=== PATIENT | male | born 1940 | race Two or more races ===

== ENCOUNTER 2024-06-25 09:27 | Inpatient (IN) | payer OTHER, MEDICAID, MEDICARE, SELFPAY ==
[2024-06-25] VITALS (13 sets, daily range): BP systolic 116–190; BP diastolic 65–112; PULSE 69–123; RESP 15–30; TEMP 36.6–39.8; O2SAT 91–98; BMI 32.9
--- NOTE | 2024-06-25 10:13 | PD.EDRME ---
Rapid Medical Screening Exam RME Arrival date/time: 06/25/24 09:27 This is an 84-year-old male with complaints of right lower quadrant pain, flank pain and fever that started last night. Patient has a history of depression, hypothyroidism, memory issues, high blood pressure, prostate cancer, and hernia surgery in the past. Patient denies any respiratory symptoms. I have greeted and performed a focused initial assessment of this patient. Initial appropriate labs ordered at this time. A comprehensive ED assessment and evaluation of the patient and analysis of all test and completion of medical decision making process will be conducted by additional ED provider. Chief Complaint: Abdominal Pain Time Seen by Provider: 06/25/24 09:52 Vital signs: Vital Signs Temperature 99.9 F 06/25/24 09:50 Pulse Rate 112 H 06/25/24 09:50 Respiratory Rate 20 06/25/24 09:50 Blood Pressure 142/82 H 06/25/24 09:50 Pulse Oximetry (%) 93 L 06/25/24 09:50 Oxygen Delivery Method Room Air 06/25/24 09:50
--- NOTE | 2024-06-25 10:15 | XR_ITS ---
Examination: PA lateral chest 2 views Technique: Upright PA lateral chest 2 views Exam date and time: June 25, 2024 1030 hrs. Indications: Fever weakness today. Findings: Early right perihilar right basilar pneumonia Mild enlargement cardiac contour The osseous structures are demineralized Impression: Early right perihilar right basilar pneumonia
[2024-06-25 10:33] LABS: Lactate (Lactic Acid) 1.6 mMol/L (0.4-2.0)
[2024-06-25 10:46] LABS: Basophils % (Auto) 0 % (0-2.5); Eosinophils # (Auto) 0.1 Thou/mm3 (0.0-0.5); Eosinophils % (Auto) 1 % (0-10); Hematocrit 39.3 % (41.0-53.0); Hemoglobin 12.9 g/dL (13.5-16.0); Immature Granulocytes % (Auto) 0 % (0-0); Immature Granulocytes Auto 0.02 Thou/mm3 (0.00-0.00); Lymphocytes # (Auto) 0.7 Thou/mm3 (1.0-4.8); Lymphocytes % (Auto) 8 % (10-50); Mean Corpuscular HGB Conc 32.8 g/dl (31.0-37.0); Mean Corpuscular Hemoglobin 27.6 pg (25.0-35.0); Mean Corpuscular Volume 84 fL (80-100); Monocytes # (Auto) 0.6 Thou/mm3 (0.0-0.8); Monocytes % (Auto) 6 % (0-12); Neutrophils # (Auto) 8.3 Thou/mm3 (1.8-7.7); Neutrophils % (Auto) 85 % (37-80); Nucleated Red Blood Cell % 0 /100 WBC (0); Platelet Count 143 Thou/mm3 (140-440); RDW Standard Deviation 41.8 fL (35.1-43.9); Red Blood Count 4.67 Miln/mm3 (4.50-5.90); White Blood Count 9.7 Thou/mm3 (3.8-10.6)
--- NOTE | 2024-06-25 10:56 | PD.EDABDPN ---
ED Abdominal Pain RME/HPI General Chief Complaint: Abdominal Pain Stated complaint: Abdominal pain, back pain since this morning Time seen by provider: 06/25/24 09:52 Arrival date/time: 06/25/24 09:27 RME / HPI RME / HPI narrative: 06/25/24 09:27 This is an 84-year-old male with complaints of right lower quadrant pain, flank pain and fever that started last night. Patient has a history of depression, hypothyroidism, memory issues, high blood pressure, prostate cancer, and hernia surgery in the past. Patient denies any respiratory symptoms. I have greeted and performed a focused initial assessment of this patient. Initial appropriate labs ordered at this time. A comprehensive ED assessment and evaluation of the patient and analysis of all test and completion of medical decision making process will be conducted by additional ED provider. DR. RAMIREZ MAIN ED EVALUATION 84 year old male with history of hypertension, hyperlipidemia, hypothyroidism, BPH, prostate CA, s/p prostatectomy, gout, s/p left knee surgery 2010, chronic knee pain on [place] presents to the ED for complaint of abdominal pain beginning last night at ~ 9pm. States at 04:00 am the abdominal pain became so severe that woke him from sleep. States pain is located most to bilateral flanks, R>L that moves around to his back bilaterally and down to the tailbone. Described as aching in sensation that is rated as moderate-severe. Accompanied by fevers. Denies sore throat, cough, shortness of breath, vomiting, diarrhea, constipation, or urinary symptoms. No sick contacts. Related Data Home Medications ?Medication ?Instructions ?Recorded ?Confirmed hydrocodone 7.5 mg-acetaminophen 1 tab PO QID PRN Pain 05/03/18 04/17/24 325 mg tablet ibuprofen 600 mg tablet 600 mg PO TID PRN Pain 05/03/18 04/17/24 gabapentin 300 mg capsule 300 cap PO TID 11/14/21 04/17/24 losartan 100 mg tablet 100 tab PO DAILY 11/14/21 04/17/24 propranolol 10 mg tablet 10 tab PO BID 11/14/21 04/17/24 amitriptyline 25 mg tablet 25 mg PO DAILY 04/17/24 04/17/24 levothyroxine 50 mcg tablet 50 mcg PO DAILY 04/17/24 04/17/24 memantine 10 mg tablet 10 mg PO BID 04/17/24 04/17/24 pantoprazole 40 mg tablet,delayed 40 mg PO DAILY 04/17/24 04/17/24 release Allergies Allergy/AdvReac Type Severity Reaction Status Date / Time No Known Allergies Allergy Verified 04/17/24 12:50 Review of Systems Review of Systems Narrative Review of Systems: GEN: +fever, no chills, no weight loss EYES: No discharge, no visual changes, no pain HEENT: No ear pain, no congestion, no sore throat PULM: No shortness of breath, no cough, no congestion CV: No chest pain, no dyspnea on exertion, no palpitations GI: No nausea, no vomiting, no diarrhea, +pain, no constipation : No frequency, no urgency and no dysuria MUSC/SKEL No joint pain, + back pain SKIN: No rash PSYCH: No hallucinations, no depression HEME/LYMPH: No easy bleeding or bruising tendencies NEURO: No weakness, no headache Past Medical History Past Medical History CARDIAC: Positive Cardiac Disorders (BUNDLE BRANCH BLOCK), Hypercholesterolemia and Hypertension GASTROINTESTINAL: Positive Gastrointestinal Disorders (HERNIA, DYSPHAGIA) GENITOURINARY: Positive Genitourinary Disorders, Prostate Cancer and Benign Prostatic Hyperplasia MUSCULOSKELETAL: Positive Musculoskeletal Disorders (RESTLESS LEGS) and Gout ENDOCRINE: Positive Endocrine Disorders and Hypothyroidism OTHER HISTORY: Positive Prostate Cancer Surgical History SURGICAL: Positive Eye Surgery Social History SMOKING STATUS: Former smoker ED Exam Narrative Physical exam: GENERAL APPEARANCE: Well hydrated, well nourished. VITALS: Febrile, 13.7F rectally. All vitals were reviewed and the pulse ox is 93% on room air which is normal according to my interpretation. HEENT: Normocephalic, atramatic, EOMI, EACs are patent. There is no bulge or retraction. Throat without erythema or exudate. Moist oromucosa. No jaundice NECK: Supple, no JVD or bruits. CARDIOVASCULAR: Heart regular without S3-S4 or murmur. No rubs or gallops. LUNGS/CHEST: Clear to auscultation bilaterally. No rales, rhonchi, or wheezing. Normal inspection. ABDOMEN: Soft, mild right flank tenderness otherwise abdomen nontender, with normal bowel sounds. No pulsatile masses. No rebound, rigidity, or guarding. No incarcerated hernia. EXTREMITIES: Normal inspection and palpation. No edema, clubbing, or cyanosis. Intact CSM SKIN: Warm and dry without rashes. Normal inspection. MUSCULOSKELETAL: Normal inspection. No gross deformity, full ROM all extremities NEURO: Alert and oriented x3. Cranial nerves II through XII grossly intact. There are no other motor or sensory deficits noted. PSYCHIATRIC: Normal mood and affect. No psychosis. Course Quality Measures Current suspected stage: sepsis Possible source: pulmonary Blood cultures ordered: completed in ED Antibiotic ordered: Yes Pertinent labs: 06/25/24 10:25 Lactic Acid 1.6 mMol/L (0.4-2.0) Procalcitonin 1.23 H ng/ml (0.0-0.49) sepsis Orders Category Date Time Status Admit to Inpatient Status Routine Admission 06/25/24 16:28 Active Patient Condition Routine Admission 06/25/24 16:29 Ordered Bedside COVID-19 Antigen Test NOW Care 06/25/24 10:49 Active Bedside Influenza A&B Antigen Test NOW Care 06/25/24 10:[address] Screening NOW Care 06/25/24 11:10 Active Flu & Pneumonia Vaccine Screen ONCE Care 06/25/24 16:29 Active Notify provider NEEDED Care 06/25/24 16:29 Active Obtain weight daily Care 06/25/24 16:[address] abdomen pelvis w con Stat Exams 06/25/24 11:10 Completed XR chest 2V Stat Exams 06/25/24 10:15 Completed Blood Culture (Lab) Stat Lab 06/25/24 10:25 Received CBC AM DRAW Lab 06/26/24 05:00 Ordered CBC AM DRAW Lab 06/27/24 05:00 Ordered CBC AM DRAW Lab 06/28/24 05:00 Ordered CBC AM DRAW Lab 06/29/24 05:00 Ordered CBC AM DRAW Lab 06/30/24 05:00 Ordered CBC Stat Lab 06/25/24 10:25 Completed Comprehensive Metabolic Panel AM DRAW Lab 06/26/24 05:00 Ordered Comprehensive Metabolic Panel AM DRAW Lab 06/27/24 05:00 Ordered Comprehensive Metabolic Panel AM DRAW Lab 06/28/24 05:00 Ordered Comprehensive Metabolic Panel AM DRAW Lab 06/29/24 05:00 Ordered Comprehensive Metabolic Panel AM DRAW Lab 06/30/24 05:00 Ordered Comprehensive Metabolic Panel Stat Lab 06/25/24 10:25 Completed Influenza A & B Rapid Panel Stat Lab 06/25/24 15:23 Completed Lactate (Lactic Acid) Stat Lab 06/25/24 10:25 Completed Lipase Stat Lab 06/25/24 10:25 Completed Lipid Panel AM DRAW Lab 06/26/24 05:00 Ordered Magnesium AM DRAW Lab 06/26/24 05:00 Ordered Magnesium AM DRAW Lab 06/27/24 05:00 Ordered Magnesium AM DRAW Lab 06/28/24 05:00 Ordered Magnesium AM DRAW Lab 06/29/24 05:00 Ordered Magnesium AM DRAW Lab 06/30/24 05:00 Ordered Phosphorous AM DRAW Lab 06/26/24 05:00 Ordered Phosphorous AM DRAW Lab 06/27/24 05:00 Ordered Phosphorous AM DRAW Lab 06/28/24 05:00 Ordered Phosphorous AM DRAW Lab 06/29/24 05:00 Ordered Phosphorous AM DRAW Lab 06/30/24 05:00 Ordered Procalcitonin Stat Lab 06/25/24 10:25 Completed Thyroid Stimulating Hormone AM DRAW Lab 06/26/24 05:00 Ordered Urinalysis, C/S if Indicated Stat Lab 06/25/24 14:00 Completed Urine Culture Routine Lab 06/25/24 16:31 Ordered Acetaminophen Ivpb [Ofirmev Inj] Med 06/25/24 10:50 Discontinued 1,000 mg in 100 ml IV Q6H Acetaminophen Tab [Tylenol Tab] Med 06/25/24 16:29 Active 650 mg PO Q6H PRN Acetaminophen Tab [Tylenol Tab] Med 06/25/24 16:29 Active 650 mg PO Q6H PRN Docusate Sod [Colace] Med 06/25/24 16:30 Active 100 mg PO QDAY Heparin Inj Med 06/25/24 16:45 Active 5,000 unit SC Q8HR Morphine Inj Med 06/25/24 11:47 Discontinued 4 mg IVP X1 ONE Ondansetron Inj [Zofran Inj] Med 06/25/24 16:29 Active 4 mg IV Q6H PRN Ondansetron Inj [Zofran Inj] Med 06/25/24 11:48 Discontinued 4 mg IV X1 ONE Piper/Tazo 3.375 gm [Zosyn] Med 06/25/24 16:35 Ordered 3.375 gm in 50 ml IV Q6HR Piper/Tazo 3.375 gm [Zosyn] Med 06/25/24 10:51 Discontinued 3.375 gm in 50 ml IV X1 Sodium Chloride 0.9% 1000 ml [Ns] 1,000 ml Med 06/25/24 16:32 Active IV 999 mls/hr Sodium Chloride 0.9% 1000 ml [Ns] 2,000 ml Med 06/25/24 10:50 Discontinued IV 500 mls/hr Code Status Routine Oth 06/25/24 16:29 Ordered Vital Signs Vital signs: Vital Signs Temperature 99.9 F 06/25/24 09:50 Pulse Rate 112 H 06/25/24 09:50 Respiratory Rate 20 06/25/24 09:50 Blood Pressure 142/82 H 06/25/24 09:50 Pulse Oximetry (%) 93 L 06/25/24 09:50 Oxygen Delivery Method Room Air 06/25/24 09:50 Abdominal Pain MDM MDM Narrative MDM Narrative:: IAlexsandra, johnny scribing for and in the presence of Dr. Ramirez. The patient looks and appeared uncomfortable with the pain of the right flank. Therefore CT was ordered to rule out kidney stone. CBC unremarkable. BUN at 35 creatinine 1.6 and procalcitonin 1.23 lactic acid is negative urine analysis showing dehydration. COVID-19 negative. Influenza is pending. 2 view chest x-ray interpreted by me: Evidence of right lower lobe infiltrate. Heart normal. Mediastinum normal. Normal bones. CT abdomen and pelvic reviewed by and interpreted by me: Atrophic right kidney with cyst. Liver is unremarkable. Pancreas normal. Left kidney is normal however there is some perinephric stranding. Possibility of pyelonephritis. No free air. No bowel obstruction. No free fluid. No pericecal stranding In the emergency department the patient was declared septic alert when his temperature spiked to 103.7. Treatment plan was accordingly including Tylenol, IV fluid, IV antibiotic. The latest vital signs that was done at 1451 indicates normal blood pressure 116/65. Pulse of 69. Respiration of 18. Temperature 98.1. O2 saturation at 98% on 2 L. The patient still having pain in the right flank. 3:20 PM, I spoke to and discussed with Dr. colbert, resident of Dr. Mascorro hospitalist on-call. He will assess the patient for admission. Critical care time is approximately 35 minutes excluding any procedure. The high probability of sudden, clinically significant deterioration in the patient?s condition required the highest level of my preparedness to intervene urgently. The services I provided to this patient were to treat and/or prevent clinically significant deterioration. Services included the following: chart data review, reviewing nursing notes and/or old charts, documentation time, office 365 consultant collaboration regarding findings and treatment options, medication orders and management, direct patient care, vital sign assessments and ordering, interpreting and reviewing diagnostic studies and lab tests. Aggregate critical care time includes only time during which I was engaged in work directly related to the patient?s care, as described above, whether at bedside or elsewhere in the Emergency Department. It did not include time spent performing other reported procedures or the services of residents, students, nurses or physician assistants. Patient data External records reviewed:: [facility] previous records (I reviewed H&P on 04/27/2024 ) Clinical information provided by:: patient and family (Daughter- adds to hpi ) Social determinants that could affect healthcare access:: none Patient has the following chronic illnesses:: hypertension, hyperlipidemia, hypothyroidism, BPH, prostate CA, s/p prostatectomy How is presenting disease/condition affected by chronic disease/condition?: exacerbated by Evaluation data The following diagnostics were reviewed and interpreted by me:: lab results and radiology exam(s) Lab and/or radiology exams considered but not ordered:: None Interpretation Summary: Ordering Physician: Alvin Ramirez MD Date of Service: 06/25/24 Procedure(s): CT abdomen pelvis w con Accession Number(s): [id number] cc: Orville Banegas MD; Ajay Dubose MD; Alvin Ramirez MD~ Examination: CT abdomen with intravenous contrast CT pelvis with intravenous contrast 2-D coronal reconstructions 2-D sagittal reconstructions Date and time of exam:June 25, 2024 at 12:46 PM Comparison March 11, 2018 Indications: Bilateral flank pain abdominal pain and fever today. CTDI: vol (mGy) 9.23 DLP: (mGycm) 601 Technique: Multiple axial sections of the abdomen and pelvis have been obtained. 64 slice high-resolution scanner used. 3 mm axial sections have been obtained, post intravenous injection 30 cc [id number] 2-D sagittal, coronal reconstructions obtained. Low dose protocols were performed. One or more of the following dose reduction techniques were used; automated exposure control, adjustment of the mA and/or KV according to patient size, use of iterative reconstruction technique. Findings: No focal liver or splenic lesions No gallstones No pancreatic or adrenal mass 3.5 cm medial right renal cyst Atrophic right kidney Upper pole 3.4 cm left renal cyst Perinephric stranding on the left No aortic aneurysm Normal appendix No bowel obstruction No bladder mass or bladder calculi Probable TURP defect Bilateral fat-containing inguinal hernias Advanced degenerative disc disease L5-S1 Impression: Atrophic right kidney Left perinephric stranding, consider left urinary tract infection No hydronephrosis or ureteral calculi Dictated By: Ajay Dubose MD Signed By: <Electronically signed by Ajay Dubose MD in OV> 06/25/24 1423 Ordering Physician: Radha Palacios NP Date of Service: 06/25/24 Procedure(s): XR chest 2V Accession Number(s): [id number] cc: Orville Banegas MD; Ajay Dubose MD; Radha Palacios NP~ Examination: PA lateral chest 2 views Technique: Upright PA lateral chest 2 views Exam date and time: June 25, 2024 1030 hrs. Indications: Fever weakness today. Findings: Early right perihilar right basilar pneumonia Mild enlargement cardiac contour The osseous structures are demineralized Impression: Early right perihilar right basilar pneumonia Dictated By: Ajay Dubose MD Signed By: <Electronically signed by Ajay Dubose MD in [place]> 06/25/24 1229 Medications / Prescriptions Medications or Prescriptions considered but not ordered:: None Medication administrations:: Medication Administration History Acetaminophen (Acetaminophen 325 Mg Tablet) 650 mg PO Q6H PRN PRN Reason: Fever >100.5 Stop: 07/25/24 16:28 Acetaminophen (Acetaminophen 325 Mg Tablet) 650 mg PO Q6H PRN PRN Reason: PAIN SCALE 1-3 (mild Stop: 07/25/24 16:28 Docusate Sodium (Docusate Sod 100 Mg Capsule) 100 mg PO QDAY BUTCH; Protocol Stop: 07/25/24 16:29 Heparin Sodium (Porcine) (Heparin Sod Inj 5000 Unit/Ml Vial) 5,000 unit SC Q8HR [facility] Stop: 07/09/24 16:44 Sodium Chloride (Ns) 1,000 mls @ 999 mls/hr IV .Q1H1M ONE Stop: 06/25/24 17:32 Piperacillin/Tazobactam/Dextrose (Zosyn) 3.375 gm in 50 mls @ 100 mls/hr IV Q6HR [facility] Stop: 07/02/24 16:34 Ondansetron HCl (Ondansetron Inj 2 Mg/Ml Inj 2 Ml) 4 mg IV Q6H PRN; Protocol PRN Reason: NAUSEA OR VOMITING Stop: 07/25/24 16:28 Discontinued Medications Acetaminophen (Ofirmev Inj) 1,000 mg in 100 mls @ 250 mls/hr IV Q6H [facility] Stop: 06/26/24 05:13 Last Infusion: 06/25/24 12:18 Dose: Infused Documented By: Admin: 06/25/24 11:54 Dose: 250 mls/hr Documented By: EF Sodium Chloride (Ns) 2,000 mls @ 500 mls/hr IV .Q4H ONE Stop: 06/25/24 14:49 Last Admin: 06/25/24 11:24 Dose: 500 mls/hr Documented By: EF Piperacillin/Tazobactam/Dextrose (Zosyn) 3.375 gm in 50 mls @ 100 mls/hr IV X1 ONE Stop: 06/25/24 11:20 Last Infusion: 06/25/24 11:55 Dose: Infused Documented By: Admin: 06/25/24 11:25 Dose: 100 mls/hr Documented By: EF Morphine Sulfate (Morphine Sulf Inj 10 Mg/Ml Vial) 4 mg IVP X1 ONE Stop: 06/25/24 11:48 Last Admin: 06/25/24 11:54 Dose: 4 mg Documented By: EF Ondansetron HCl (Ondansetron Inj 2 Mg/Ml Inj 2 Ml) 4 mg IV X1 ONE; Protocol Stop: 06/25/24 11:49 Last Admin: 06/25/24 11:54 Dose: 4 mg Documented By: EF See above Consultations Consultation(s) initiated? (list below): Yes Consultation #1 (Physician, Specialty, Details): I spoke with hospitalist Dr. Mascorro regarding admission. Discussed patients PMHx, HPI, ED course, exam findings, labs, and radiology results as noted above. Diagnosis Differential diagnosis abdominal pain: abdominal pain, calculus of kidney, diverticulitis and small bowel obstruction Most likely diagnosis given after review of the tests above:: Sepsis Dehydration Admission Indicated Admission indicated?: indicated Admission Request Was there a request for admission?: Yes Admission Attestation Admission request attestation: Discussed case with [] from Hospitalist service regarding admission. Discussed patients ED course, exam findings, labs, and radiology results. The Hospitalist [agrees,declines] to accept the patient for admission. Disposition Plan Disposition Plan: Admit Critical Care Time Critical Care Time Critical Care Time: Yes Total Critical Care Time (min.): 35 Attestation: The high probability of sudden, clinically significant deterioration in the patient's condition required the highest level of my preparedness to intervene urgently. The services I provided to this patient were to treat and/or prevent clinically significant deterioration. Services included the following: chart data review, reviewing nursing notes and/or old charts, documentation time, office 365 consultant collaboration regarding findings and treatment options, medication orders and management, direct patient care, vital sign assessments and ordering, interpreting and reviewing diagnostic studies and lab tests. Aggregate critical care time includes only time during which I was engaged in work directly related to the patient's care, as described above, whether at bedside or elsewhere in the Emergency Department. It did not include time spent performing other reported procedures or the services of residents, students, nurses or physician assistants. Discharge Plan Plan Patient Disposition: Admit Acute Care w/in Hospital Disposition Comment: Stable for admit Prescriptions/Referrals Prescriptions/Med Rec: No Action ibuprofen 600 mg Tablet 600 mg PO TID PRN (Reason: Pain) hydrocodone-acetaminophen 7.5-325 mg Tablet 1 tab PO QID PRN (Reason: Pain) Hold Instructions: Resume on 04/18/24. propranolol 10 mg tablet 10 tab PO BID gabapentin 300 mg capsule 300 cap PO TID losartan 100 mg tablet 100 tab PO DAILY levothyroxine 50 mcg tablet 50 mcg PO DAILY Patient Comments: take 1 tablet by mouth once daily pantoprazole 40 mg tablet,delayed release (DR/EC) 40 mg PO DAILY memantine 10 mg tablet 10 mg PO BID amitriptyline 25 mg tablet 25 mg PO DAILY Referrals: Orville Banegas MD [Primary Care Provider] - In 1 week Problem List Clinical Impression: Sepsis, Pneumonia, Dehydration Patient/Caregiver Discharge Instructions Print Language: French Stand Alone Forms: Roberta Award Info., Patient Portal Info Letter
[2024-06-25 11:07] LABS: Alanine Aminotransferase 10 U/L (10-49); Albumin, Serum 4.7 gm/dL (3.4-4.8); Albumin/Globulin Ratio 1.7 (1.2-2.2); Alkaline Phosphatase 102 U/L (46-116); Anion Gap 8 (7-16); Aspartate Amino Transferase < 10 U/L (0-34); BUN/Creatinine Ratio 22 Ratio (12-20); Bilirubin,Total 1.4 mg/dL (0.3-1.2); Blood Urea Nitrogen 35 mg/dL (9-23); Calcium 9.5 mg/dL (8.3-10.6); Calcium (Corrected) 9.5 mg/dL (8.5-10.1); Carbon Dioxide 25.3 mMol/L (20.0-31.0); Chloride 105 mMol/L (98-107); Creatinine (Component) 1.6 mg/dL (0.6-1.3); Estimated Creatinine Clearance 38.9 mL/min (>60); Globulin 2.8 gm/dL (2.3-3.5); Glucose 112 mg/dL (74-106); Lipase 31 U/L (12-53); Osmolality,Calculated 284 (275-295); Potassium 4.4 mMol/L (3.4-5.1); Procalcitonin 1.23 ng/ml (0.0-0.49); Sodium 138 mMol/L (136-145); Total Protein 7.5 gm/dL (5.7-8.2); eGFR 42 See Note
--- NOTE | 2024-06-25 11:10 | XR_ITS ---
Examination: CT abdomen with intravenous contrast CT pelvis with intravenous contrast 2-D coronal reconstructions 2-D sagittal reconstructions Date and time of exam:June 25, 2024 at 12:46 PM Comparison March 11, 2018 Indications: Bilateral flank pain abdominal pain and fever today. CTDI: vol (mGy) 9.23 DLP: (mGycm) 601 Technique: Multiple axial sections of the abdomen and pelvis have been obtained. 64 slice high-resolution scanner used. 3 mm axial sections have been obtained, post intravenous injection 30 cc [id number]-300 2-D sagittal, coronal reconstructions obtained. Low dose protocols were performed. One or more of the following dose reduction techniques were used; automated exposure control, adjustment of the mA and/or KV according to patient size, use of iterative reconstruction technique. Findings: No focal liver or splenic lesions No gallstones No pancreatic or adrenal mass 3.5 cm medial right renal cyst Atrophic right kidney Upper pole 3.4 cm left renal cyst Perinephric stranding on the left No aortic aneurysm Normal appendix No bowel obstruction No bladder mass or bladder calculi Probable TURP defect Bilateral fat-containing inguinal hernias Advanced degenerative disc disease L5-S1 Impression: Atrophic right kidney Left perinephric stranding, consider left urinary tract infection No hydronephrosis or ureteral calculi
[2024-06-25] MEDS: SODIUM CHLORIDE 0.9% 1000 ML 2,000 ML 500 ML IV (11:24)
[2024-06-25] MEDS: PIPER/TAZO 3.375 GM 3.375 GM/50 ML BAG IV ×2 (11:25→17:20)
[2024-06-25] MEDS: ONDANSETRON INJ 2 MG/ML INJ 2 ML 4 MG IV (11:54)
[2024-06-25] MEDS: ACETAMINOPHEN IVPB 1,000 MG/100 ML VIAL 250 MG IV (11:54)
[2024-06-25] MEDS: MORPHINE SULF INJ 10 MG/ML VIAL 4 MG IVP ×2 (11:54→21:22)
--- NOTE | 2024-06-25 12:02 | PC.NURSE ---
patient brought in by daughter for abdominal pain that started this morning around 4am pain 03/14
[2024-06-25 14:34] LABS: Collection Type, Urine Voided
[2024-06-25 14:45] LABS: Bilirubin,Urine Negative (Negative); Blood,Urine Negative (Negative); Clarity,Urine Clear (Clear/Hazy); Color,Urine Lt-Yellow (Lt Yel-Yel); Culture Indicated,Urine Not Indicated; Glucose, Urine Negative (Negative); Ketones,Urine Negative (Negative); Nitrite,Urine Negative (Negative); PH,Urine 5.5 (5.0-7.0); Protein,Urine Negative (Neg - Trace); RBC,Urine 3 /hpf (0-3); Specific Gravity,Urine 1.038 (1.001-1.035); Squamous Epithelial Cell,Urine 1 /hpf (0-5); Urobilinogen,Urine Negative mg/dL (0.0-1.0); WBC,Urine < 1 /hpf (0-5)
[2024-06-25 14:49] LABS: Leukocyte Esterase,Urine Trace (Negative)
[2024-06-25 16:07] LABS: Influenza A Ag Negative; Influenza B Ag Negative
--- NOTE | 2024-06-25 16:44 | ESHP_ITS ---
Documentation for date of: 06/25/24 [facility] History of Present Illness Chief complaint: Abdominal pain History of present illness: 84-year-old male with past medical history of hypertension, hyperlipidemia, hypothyroidism, BPH, prostate cancer s/p prostatectomy, gout, chronic knee pain on [place] presented to the ED due to abdominal pain. Patient suddenly woke up at 4 AM today 06/25/2024 with diffuse abdominal pain radiating to the bilateral flanks associated with some nausea. Patient states no relief with changing position, however in the ED was given morphine and that relieved the pain. Denies fevers, chills, shortness of breath, chest pain, urinary changes. Patient will be admitted for sepsis secondary to left pyelonephritis. ED course: Vitals on arrival significant for hypertension 142/82, tachycardia 112 bpm, saturating 93% on room air. CBC unremarkable, CHEM panel showed mild ANTONINA, T. bili 1.4, procalcitonin 1.23, chest x-ray showed right basilar pneumonia, CT abdomen pelvis showedAtrophic right kidney, Left perinephric stranding, consider left urinary tract infection,No hydronephrosis or ureteral calculi PMHx: Hypertension, hyperlipidemia, prostate cancer, gout, BPH, hypothyroidism, chronic knee pain on [place] SX Hx: Prostatectomy, bilateral knee surgeries Social Hx: Denies alcohol use, denies illicit drug use, denies smoking FHx: Unknown Review of Systems Review of Systems Narrative Review of Systems: Narrative ROS GENERAL: Denies fevers/chills or diaphoresis. HEENT: Denies headache or visual/hearing changes. Denies nasal discharge. NEURO: Denies unusual weakness or difficulty speaking. CARDIO: Denies chest pain or palpitations. PULM: Denies SOB, coughing, or wheezing. GI: + abdominal pain, N/V/C/D/reflux/gas, bright red blood per rectum or melena. Reports having BMs. URO: Denies burning/itching/pain/urinary changes. MSK/EXT/SKIN: Denies joint/skeletal/muscle pain, issues/changes in upper or lower extremities, itchiness, or superficial pain. PSYCH: Cooperative, pleasant mood & affect. The rest of the review of systems is otherwise negative. Exam Vital Signs Temp Pulse Resp BP Pulse Ox O2 Del Method O2 Flow Rate 97.9 F 87 18 179/86 H 97 Room Air 2 06/25/24 16:00 06/25/24 16:00 06/25/24 16:00 06/25/24 16:00 06/25/24 16:00 06/25/24 16:00 06/25/24 12:07 Narrative Exam Physical Exam GENERAL: NAD, AAOx3 HEENT: Moist mucosa. Eyes open, symmetrical, & clear CARDIO: Heart RRR, no obvious murmurs PULM: No noted coughing/dyspnea CTA B/L, no R/W/R GI: Abdomen soft, nondistended, pain on palpation more prominent in the bilateral lower quadrants, positive left CVA, BSx4 SKIN/MSK/EXT: No wounds/rashes/edema/amputations, no pain on palpation. Pedal pulses present B/L NEURO: AAOx3, no focal neuro deficits, able to move all 4 extremities Results: Labs 06/25/24 10:25 06/25/24 10:25 Labs: Short CBC 06/25/24 Range/Units 10:25 WBC 9.7 (3.8-10.6) Thou/mm3 Hgb 12.9 L (13.5-16.0) g/dL Hct 39.3 L (41.0-53.0) % Plt Count 143 (140-440) Thou/mm3 BMP 06/25/24 10:25 Sodium 138 Potassium 4.4 Chloride 105 Carbon Dioxide 25.3 BUN 35 H Creatinine 1.6 H Glucose 112 H Calcium 9.5 Liver Function 06/25/24 Range/Units 10:25 Total Bilirubin 1.4 H (0.3-1.2) mg/dL AST < 10 (0-34) U/L ALT 10 (10-49) U/L Alkaline Phosphatase 102 (46-116) U/L Albumin 4.7 (3.4-4.8) gm/dL Urine 06/25/24 Range/Units 14:00 Urine Color Lt-Yellow (Lt Yel-Yel) Urine Clarity Clear (Clear/Hazy) Urine pH 5.5 (5.0-7.0) Ur Specific [place] 1.038 H (1.001-1.035) Urine Protein Negative (Neg - Trace) Urine Glucose (UA) Negative (Negative) Quality Measures Quality Measures sepsis Current suspected stage: sepsis Possible source: pulmonary Blood cultures ordered: completed in ED Antibiotic ordered: Yes Advance care planning discussed with:: patient and child Medications Home Medications and Allergies Home Medications ?Medication ?Instructions ?Recorded ?Confirmed ?Type hydrocodone 7.5 mg-acetaminophen 1 tab PO BID PRN Pain 05/03/18 06/25/24 History 325 mg tablet ibuprofen 600 mg tablet 600 mg PO TID PRN Pain 05/03/18 06/25/24 History gabapentin 300 mg capsule 300 cap PO TID 11/14/21 06/25/24 History losartan 100 mg tablet 100 tab PO DAILY 11/14/21 06/25/24 History propranolol 10 mg tablet 10 tab PO DAILY 11/14/21 06/25/24 History amitriptyline 25 mg tablet 25 mg PO HS 04/17/24 06/25/24 History levothyroxine 50 mcg tablet 50 mcg PO DAILY 04/17/24 04/17/24 History memantine 10 mg tablet 10 mg PO BID 04/17/24 06/25/24 History pantoprazole 40 mg tablet,delayed 40 mg PO DAILY 04/17/24 04/17/24 History release Allergies Allergy/AdvReac Type Severity Reaction Status Date / Time No Known Allergies Allergy Verified 06/25/24 19:53 Visit Medications Acetaminophen (Acetaminophen 325 Mg Tablet) 650 mg PO Q6H PRN PRN Reason: Fever >100.5 Stop: 07/25/24 16:28 Acetaminophen (Acetaminophen 325 Mg Tablet) 650 mg PO Q6H PRN PRN Reason: PAIN SCALE 1-3 (mild Stop: 07/25/24 16:28 Docusate Sodium (Docusate Sod 100 Mg Capsule) [facility]; Protocol Stop: 07/25/24 16:29 Heparin Sodium (Porcine) (Heparin Sod Inj 5000 Unit/Ml Vial) 5,000 unit SC Q8HR BUTCH Stop: 07/09/24 16:44 Sodium Chloride (Ns) 1,000 mls @ 999 mls/hr IV .Q1H1M ONE Stop: 06/25/24 17:32 Piperacillin/Tazobactam/Dextrose (Zosyn) 3.375 gm in 50 mls @ 12.5 mls/hr IV Q6HR BUTCH; Protocol Stop: 07/02/24 17:59 Morphine Sulfate (Morphine Sulf Inj 10 Mg/Ml Vial) 2 mg IVP Q4H PRN PRN Reason: PAIN SCALE 7-10 (Severe Stop: 06/30/24 16:40 Ondansetron HCl (Ondansetron Inj 2 Mg/Ml Inj 2 Ml) 4 mg IV Q6H PRN; Protocol PRN Reason: NAUSEA OR VOMITING Stop: 07/25/24 16:28 Discontinued Medications Acetaminophen (Ofirmev Inj) 1,000 mg in 100 mls @ 250 mls/hr IV Q6H BUTCH Stop: 06/26/24 05:13 Last Infusion: 06/25/24 12:18 Dose: Infused Sodium Chloride (Ns) 2,000 mls @ 500 mls/hr IV .Q4H ONE Stop: 06/25/24 14:49 Last Admin: 06/25/24 11:24 Dose: 500 mls/hr Piperacillin/Tazobactam/Dextrose (Zosyn) 3.375 gm in 50 mls @ 100 mls/hr IV X1 ONE Stop: 06/25/24 11:20 Last Infusion: 06/25/24 11:55 Dose: Infused Piperacillin/Tazobactam/Dextrose (Zosyn) 3.375 gm in 50 mls @ 12.5 mls/hr IV Q8HR BUTCH; Protocol Stop: 07/02/24 16:44 Morphine Sulfate (Morphine Sulf Inj 10 Mg/Ml Vial) 4 mg IVP X1 ONE Stop: 06/25/24 11:48 Last Admin: 06/25/24 11:54 Dose: 4 mg Morphine Sulfate (Morphine Sulf Inj 10 Mg/Ml Vial) 2 mg IVP Q2H PRN PRN Reason: PAIN SCALE 7-10 (Severe Stop: 06/30/24 16:40 Ondansetron HCl (Ondansetron Inj 2 Mg/Ml Inj 2 Ml) 4 mg IV X1 ONE; Protocol Stop: 06/25/24 11:49 Last Admin: 06/25/24 11:54 Dose: 4 mg Assessment & Plan Plan 84-year-old male with past medical history of hypertension, hyperlipidemia, hypothyroidism, BPH, prostate cancer s/p prostatectomy, gout, chronic knee pain on [place] presented to the ED due to abdominal pain. Admitted for sepsis secondary to left pyelonephritis. #Sepsis secondary to #Pyelonephritis #Right-sided pneumonia Patient presented today with lower abdominal pain radiating to the flanks On physical exam with left-sided CVA tenderness positive On admission had SIRS 2 out of 4, tachycardia, febrile with source pyelonephritis and endorgan damage acute kidney injury and hyperbilirubinemia Abdomen/pelvis CT: Left perinephric fat stranding and CXR: Early right base pneumonia Pro-Hilario 1.23, In the ED received 2 L of IV fluids -On IV Zosyn, will adjust based on sensitivity and cultures -Ordered 1 L of normal saline for 30 cc/kg for sepsis -Follow-up COVID, influenza -Follow-up lactate -Follow-up blood cultures -Follow-up urine culture #ANTONINA Baseline creatinine seems to be 0.9-1.1 Current creatinine 1.6 In the ED received 2 L of IVF's -1 L NS ordered -Renally dose medications -Avoid nephrotoxic meds -Monitor CMP #Hypertensive urgency Likely in the setting of pain Will hold resuming losartan in view of ANTONINA -IV hydralazine as needed #Elevated T. bili Likely in the setting of sepsis -Will monitor at this time #Chronic pain Patient had history of bilateral knee surgeries takes chronic [place] -Resume [place] 7.25 325 twice daily as needed #BPH #Prostate cancer status post prostatectomy Resume Flomax as taken at home #Hypothyroidism Follow-up TSH, free T4 -Resume levothyroxine 50 mcg p.o. daily #GERD -Resumed home pantoprazole Case discussed with my attending Dr. Subha Carvalho MD PGY-1 Disposition: Telemetry Fluids: NS Feeding: Cardiac Thrombo prophylaxis: Heparin Gastric Ulcer prophylaxis: Pantoprazole CODE STATUS: Full code Attending Provider Attestation/Addendum I have examined the patient, reviewed labs and imaging findings, discussed the case with the resident(s), and reviewed entered orders. I agree with the plan of care as outlined in this note, with these additional summaries/recommendations: Patient is a 84-year-old male with a medical history of chronic back pain, BPH, prostate cancer, status post TURP, neuropathy, hypothyroidism, primary hypertension, and hyperlipidemia who presents to [facility] emergency department on 06/25/2024 with chief complaints of lower abdominal pain, left flank pain, and fevers that started last night. Patient was diagnosed with sepsis and hospitalist team consulted for continuation of care. #Sepsis #Pyelonephritis SIRS: 2 out of 4 SIRS criteria met (body temp >38C, HR >90) qSOFA: 0 points indicating low risk of mortality from sepsis Presented with flank pain, fever/chills, and possible urinary symptoms Labs notable for WBC 9.7 (baseline in 5 range), Pro-Hilario 1.23, and endorgan damage with ANTONINA and hyperbilirubinemia Abdomen/pelvis CT: Left perinephric fat stranding and CXR: Early right base pneumonia Meets criteria for sepsis. Most likely source is pyelonephritis versus less likely pneumonia versus less likely viral infection Order daily CBC, blood cultures, urine culture, COVID, and influenza Antibiotics: Start IV Zosyn (06/25/24) and de-escalate when able Fluids: Received 1.5 L fluids in ED. Will give additional 1.5 L to meet sepsis 30 cc/kg protocol No need for pressors or source control at this time Tylenol as needed for fever #Chronic Pain: Continue home [place] 7.5?3 25 twice daily as needed # GERD: Continue home pantoprazole # Hypothyroidism: Order free T4 and TSH. Continue home levothyroxine 50 mcg p.o. daily # BPH/prostate cancer: Will resume home Flomax when able. Outpatient follow-up. # Primary hypertension: Resume home antihypertensives as tolerated Dr. Mascorro
[2024-06-25] MEDS: DOCUSATE SOD 100 MG CAPSULE PO (17:20)
[2024-06-25] MEDS: MORPHINE SULF INJ 10 MG/ML VIAL 2 MG IVP (17:20)
[2024-06-25] MEDS: HEPARIN SOD INJ 5000 UNIT/ML VIAL SC ×2 (17:21→21:22)
[2024-06-25] MEDS: SODIUM CHLORIDE 0.9% 1000 ML 1,000 ML 999 ML IV (17:45)
[2024-06-25] MEDS: ACETAMINOPHEN 325 MG TABLET 650 MG PO (18:39)
--- NOTE | 2024-06-25 18:47 | EKG_ITS ---
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
--- NOTE | 2024-06-25 18:58 | PC.NURSE ---
Rapid response called at 1852 because patient heart rate was 174 and sustaining. Patient also had several runs of vtach. Hr stayed elevated for several minutes after patient laid back down but was then noted to be 107. Patient given tylenol for 100.3 temp, orders placed at bedside. Patient will be transferred to tele.
--- NOTE | 2024-06-25 19:02 | PC.RT ---
Rt responted to rapid at 18:45 pt on 2L nc EKG done per orders spo2 92% RR27, hr 105. RT DC at 18:55.
--- NOTE | 2024-06-25 19:05 | PD.RESEVENT ---
Documentation for date of: 06/25/24 Event Note Event Note: Rapid response was called due to tachycardia, heart rate in the 170s. On examination patient was complaining of abdominal pain radiating to the back as well as some mild chest pain. EKG was ordered showed sinus tachycardia with some right bundle branch block which is patient's baseline. Ordered troponins, CBC, CMP, magnesium, phosphorus, follow-up and lactate. And pain regimen adjusted. Narinder Carvalho MD PGY-1
[2024-06-25] MEDS: hydrALAZINE INJ 20 MG/ML VIAL 10 MG IV (19:34)
--- NOTE | 2024-06-25 19:45 | PC.NURSE ---
T=101.1- Cooling measures applied.
[2024-06-25 19:50] LABS: Lactate (Lactic Acid) 2.3 mMol/L (0.4-2.0)
[2024-06-25 19:54] LABS: Basophils % (Auto) 0 % (0-2.5); Eosinophils % (Auto) 0 % (0-10); Hemoglobin 12.2 g/dL (13.5-16.0); Immature Granulocytes % (Auto) 0 % (0-0); Immature Granulocytes Auto 0.07 Thou/mm3 (0.00-0.00); Lymphocytes # (Auto) 0.7 Thou/mm3 (1.0-4.8); Lymphocytes % (Auto) 4 % (10-50); Mean Corpuscular HGB Conc 32.1 g/dl (31.0-37.0); Mean Corpuscular Hemoglobin 27.4 pg (25.0-35.0); Mean Corpuscular Volume 85 fL (80-100); Monocytes # (Auto) 0.8 Thou/mm3 (0.0-0.8); Monocytes % (Auto) 5 % (0-12); Neutrophils # (Auto) 15.3 Thou/mm3 (1.8-7.7); Neutrophils % (Auto) 91 % (37-80); Nucleated Red Blood Cell % 0 /100 WBC (0); Platelet Count 139 Thou/mm3 (140-440); Red Blood Count 4.46 Miln/mm3 (4.50-5.90); White Blood Count 16.8 Thou/mm3 (3.8-10.6)
[2024-06-25 20:31] LABS: Alanine Aminotransferase 9 U/L (10-49); Albumin, Serum 4.3 gm/dL (3.4-4.8); Albumin/Globulin Ratio 1.5 (1.2-2.2); Alkaline Phosphatase 88 U/L (46-116); Anion Gap 8 (7-16); Aspartate Amino Transferase 17 U/L (0-34); BUN/Creatinine Ratio 20 Ratio (12-20); Bilirubin,Total 2.1 mg/dL (0.3-1.2); Blood Urea Nitrogen 28 mg/dL (9-23); Calcium 8.6 mg/dL (8.3-10.6); Calcium (Corrected) 8.6 mg/dL (8.5-10.1); Carbon Dioxide 23.4 mMol/L (20.0-31.0); Chloride 107 mMol/L (98-107); Creatinine (Component) 1.4 mg/dL (0.6-1.3); Estimated Creatinine Clearance 44.4 mL/min (>60); Globulin 2.8 gm/dL (2.3-3.5); Glucose 130 mg/dL (74-106); Magnesium 1.7 mg/dL (1.6-2.6); Osmolality,Calculated 283 (275-295); Phosphorous 2.4 mg/dL (2.4-5.1); Potassium 4.4 mMol/L (3.4-5.1); Sodium 138 mMol/L (136-145); Total Protein 7.1 gm/dL (5.7-8.2); eGFR 49 See Note
[2024-06-25 20:36] LABS: Troponin I 0.335 ng/mL (0.0-0.045)
[2024-06-25 22:44] LABS: Reflex Lactate? Y
[2024-06-25 23:25] LABS: Lactate (Lactic Acid) 1.6 mMol/L (0.4-2.0)
--- NOTE | 2024-06-25 23:37 | PC.NURSE ---
Notified Dr Porras that patient has been sinus tach maintaining mid 130's HR. No new orders given. Will continue to monitor.
[2024-06-26] VITALS (8 sets, daily range): BP systolic 89–148; BP diastolic 54–86; PULSE 60–135; RESP 17–26; TEMP 36–37.4; O2SAT 95–98; BMI 32.5
[2024-06-26] MEDS: SODIUM CHLORIDE 0.9% 250 ML 250 ML 999 ML IV (00:04)
[2024-06-26 02:35] LABS: Troponin I 1.066 ng/mL (0.0-0.045)
--- NOTE | 2024-06-26 02:40 | EKG_ITS ---
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
--- NOTE | 2024-06-26 02:47 | PC.NURSE ---
After administration of 250 NS bolus, HR has decreased to 70's-80's
[2024-06-26 03:06] LABS: Lactate (Lactic Acid) 2.3 mMol/L (0.4-2.0)
[2024-06-26 03:14] LABS: Basophils % (Auto) 0 % (0-2.5); Eosinophils % (Auto) 0 % (0-10); Hematocrit 38.3 % (41.0-53.0); Hemoglobin 12.3 g/dL (13.5-16.0); Immature Granulocytes % (Auto) 0 % (0-0); Immature Granulocytes Auto 0.05 Thou/mm3 (0.00-0.00); Lymphocytes # (Auto) 0.6 Thou/mm3 (1.0-4.8); Lymphocytes % (Auto) 4 % (10-50); Mean Corpuscular HGB Conc 32.1 g/dl (31.0-37.0); Mean Corpuscular Hemoglobin 27.5 pg (25.0-35.0); Mean Corpuscular Volume 86 fL (80-100); Monocytes # (Auto) 0.6 Thou/mm3 (0.0-0.8); Monocytes % (Auto) 4 % (0-12); Neutrophils # (Auto) 13.6 Thou/mm3 (1.8-7.7); Neutrophils % (Auto) 91 % (37-80); Nucleated Red Blood Cell % 0 /100 WBC (0); Platelet Count 142 Thou/mm3 (140-440); RDW Standard Deviation 44.1 fL (35.1-43.9); Red Blood Count 4.47 Miln/mm3 (4.50-5.90); White Blood Count 14.9 Thou/mm3 (3.8-10.6)
[2024-06-26] MEDS: MORPHINE SULF INJ 10 MG/ML VIAL 4 MG IVP ×2 (04:03→08:34)
[2024-06-26 04:06] LABS: Albumin, Serum 4.3 gm/dL (3.4-4.8); Albumin/Globulin Ratio 1.6 (1.2-2.2); Alkaline Phosphatase 81 U/L (46-116); Anion Gap 10 (7-16); Aspartate Amino Transferase 21 U/L (0-34); BUN/Creatinine Ratio 19 Ratio (12-20); Blood Urea Nitrogen 25 mg/dL (9-23); Calcium 8.7 mg/dL (8.3-10.6); Calcium (Corrected) 8.7 mg/dL (8.5-10.1); Carbon Dioxide 22.4 mMol/L (20.0-31.0); Chloride 106 mMol/L (98-107); Cholesterol 153 mg/dL (132-200); Creatinine (Component) 1.3 mg/dL (0.6-1.3); Estimated Creatinine Clearance 47.8 mL/min (>60); Free T4 (Free Thyroxine) 0.93 ng/dL (0.89-1.76); Globulin 2.7 gm/dL (2.3-3.5); Glucose 127 mg/dL (74-106); HDL Cholesterol 38 mg/dL (40-60); LDL Cholesterol,Calculated 88 mg/dL (0-130); Magnesium 1.8 mg/dL (1.6-2.6); Osmolality,Calculated 282 (275-295); Phosphorous 2.9 mg/dL (2.4-5.1); Sodium 138 mMol/L (136-145); Triglycerides 135 mg/dL (30-150); eGFR 54 See Note
[2024-06-26 04:21] LABS: Thyroid Stimulating Hormone 5.09 uIU/mL (0.55-4.78)
[2024-06-26 04:34] LABS: Alanine Aminotransferase 10 U/L (10-49)
--- NOTE | 2024-06-26 05:35 | EKG_ITS ---
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
[2024-06-26] MEDS: LEVOTHYROXINE SODIUM 25 MCG TABLET 50 MCG PO (05:38)
[2024-06-26] MEDS: PIPER/TAZO 3.375 GM 3.375 GM/50 ML BAG IV (05:38)
--- NOTE | 2024-06-26 06:03 | PC.NURSE ---
Dr Solomon notified that patient switched over to afib. After patient seen at bedside by Dr Randell stated to notify them of sustained afib of 120+
[2024-06-26 06:04] LABS: Reflex Lactate? Y
[2024-06-26 07:04] LABS: Lactic Acid, 3 HR 1.8 mMol/L (0.4-2.0)
[2024-06-26 07:26] LABS: INR 1.2 (0.9-1.3); Partial Thromboplastin Time 35.9 Seconds (22.0-36.0)
--- NOTE | 2024-06-26 07:29 | ECHO_ITS ---
Transthoracic Echo Report Ht (in): 69 Wt (lb): 220 Exam Location: Portable Status: Inpatient Tie Maker: Kirsten Reardon Indications: Procedure Performed: BP: 132 / 77 HR: 80 Rhythm: Sinus Technical Quality: Technically difficult study MEASUREMENTS (Male / Female) Normal Values 2D ECHO LV Diastolic Diameter PLAX 4.1 cm 4.2 - 5.9 / 3.9 - 5.3 cm LV Systolic Diameter PLAX 2.7 cm IVS Diastolic Thickness 1.2 cm 0.6 - 1.0 / 0.6 - 0.9 cm LVPW Diastolic Thickness 1.3 cm 0.6 - 1.0 / 0.6 - 0.9 cm LV Relative Wall Thickness 0.6 LVOT Diameter 2.0 cm LA Volume Index 25.7 cm?/m? 16 - 28 cm?/m? Ascending Aorta Diameter 3.9 cm M-MODE Aortic Root Diameter MM 3.5 cm LA Systolic Diameter MM 3.8 cm LA Ao Ratio MM 1.1 AV Cusp Separation MM 2.8 cm DOPPLER AV Peak Velocity 178.0 cm/s AV Peak Gradient 12.7 mmHg AV Mean Gradient 7.0 mmHg AV Velocity Time Integral 30.1 cm LVOT Peak Velocity 153.0 cm/s LVOT Peak Gradient 9.4 mmHg LVOT Velocity Time Integral 23.5 cm LVOT Cardiac Index 2641.4 cm?/min?m? AV Area Cont Eq vti 2.5 cm? AV Area Cont Eq pk 2.7 cm? MV Peak Velocity 96.1 cm/s MV Peak Gradient 3.7 mmHg MV Mean Velocity 64.1 cm/s MV Mean Gradient 2.0 mmHg MV Area PHT 3.3 cm? Mitral E Point Velocity 78.6 cm/s Mitral A Point Velocity 98.0 cm/s Mitral E to A Ratio 0.8 LV E' Lateral Velocity 10.4 cm/s Mitral E to LV E' Lateral Ratio 7.6 LV E' Septal Velocity 8.3 cm/s Mitral E to LV E' Septal Ratio 9.5 TR Peak Velocity 289.0 cm/s TR Peak Gradient 33.4 mmHg FINDINGS Left Ventricle Normal left ventricular size, systolic function with no obvious regional wall motion abnormalities. Mild LVH. The ejection fraction is visually estimated at 60-65%. Right Ventricle The right ventricle is normal in size and systolic function. The estimated right ventricular systoli c pressure, 38mmHg. RAP 5. Left Atrium The left atrium is normal by two-dimensional, color flow and Doppler imaging with no structural abnormalities, no thrombus formation present. Right Atrium The right atrium is normal by two-dimensional imaging, color flow and Doppler imaging with no struct ural abnormalities, no thrombus formation present. Atrial Septum The interatrial septum appears normal with no evidence of a shunt. Aorta The ascending aorta is mildly dilated. The aortic root is mildly dilated. Mitral Valve The mitral valve is normal by two-dimensional, color flow and Doppler interrogation. There is trace mitral valve regurgitation. Aortic Valve The aortic valve is trileaflet and normal by two-dimensional, color flow and Doppler interrogation. There is no significant aortic valve regurgitation. Tricuspid Valve The tricuspid valve is normal by two-dimensional, color flow and Doppler interrogation. There is tra ce tricuspid valve regurgitation. Pulmonic Valve There is no significant pulmonic valve regurgitation. Vessels The pulmonary artery appears normal. The inferior vena cava pulmonary and hepatic veins appear darron l. Pericardium The pericardium is normal by two-dimensional imaging. There is no significant pericardial effusion. CONCLUSIONS Normal LV size and function. Mild LVH. Estimated EF 60-65% Normal RV size and function. Estimated RVSP 38mmHg The ascending aorta is mildly dilated. The aortic root is mildly dilated. Trace MR, TR. Janette Barillas (Electronically Signed) Final Date: 26 June 2024 16:59
[2024-06-26] MEDS: METOPROLOL TARTRATE 25 MG TABLET 50 MG PO (08:24)
[2024-06-26] MEDS: PANTOPRAZOLE 40 MG TABLET PO (08:24)
[2024-06-26] MEDS: DOCUSATE SOD 100 MG CAPSULE PO (08:24)
[2024-06-26] MEDS: Magnesium Sulfate 4 GM Ivpb 4 GM/50 ML BAG IV (08:53)
[2024-06-26] MEDS: HEPARIN SOD INJ 5000 UNIT/ML VIAL 4000 UNIT IV (08:53)
[2024-06-26] MEDS: Heparin/D5w 25K 250 ML Ivpb 25,000 UNIT/250 ML BAG 11.991 UNIT IV (08:54)
[2024-06-26 09:12] LABS: Troponin I 1.424 ng/mL (0.0-0.045)
[2024-06-26] MEDS: VANCOMYCIN/D5W 1,250 MG IVPB 250 ML 120 MG IV (10:24)
--- NOTE | 2024-06-26 10:29 | ESPR_ITS ---
Documentation for date of: 06/26/24 ATTESTATION: I saw and examined the patient this morning, and I agree with current management stated by the resident. Will continue to monitor patient during their stay. Patient was admitted for pylonephitis and during this stay he has developed an NSTEMI as his trops elevated. He is also found to have GPC bacteremia on preliminary cultures. Cardiology is on board and patient is on optimal medical management at this time. Disclaimer: Despite multiple revisions, due to the dictation software being used, the document bellow may not be free of grammatical errors including phonetic/typographic errors. However, this does not deter from our commitment to providing health care in the patient's best interest in mind. Dr. Trevor Judge, PGY-3 Subjective Subjective Interval history: Patient seen today at the bedside found awake, alert, orientedx3. Overnight night team was following troponins found to be trending up and was started on heparin drip EKGs were done one of them showed ST depressions. Cardiology, Dr. Yanez was consulted, states its likely NSTEMI type 2 in the setting of sepsis, recommended starting metoprolol 50mg bid, and will come and evaluate patient. Patient still complaining of abdominal pain, patient has high tolerance for pain medications as he takes norco chronically for knee pain, pain regimen was adjusted accordingly. Zosyn was switched to ceftriaxone for pyelonephritis. Blood cultures grew preliminary gram positive cocci in 2x bottles, vancomycin was added. Will continue to monitor at this time. Exam Vital Signs Temp Pulse Resp BP Pulse Ox O2 Del Method O2 Flow Rate 98.8 F 80 26 H 132/77 H 97 Nasal Cannula 2 06/26/24 08:00 06/26/24 08:24 06/26/24 04:00 06/26/24 08:24 06/26/24 08:00 06/26/24 08:00 06/26/24 08:00 Narrative Exam Physical Exam GENERAL: NAD, AAOx3 HEENT: Moist mucosa. Eyes open, symmetrical, & clear CARDIO: Heart RRR, no obvious murmurs PULM: No noted coughing/dyspnea CTA B/L, no R/W/R GI: Abdomen soft, nondistended, pain on palpation more prominent in the bilateral lower quadrants, positive left CVA, BSx4 SKIN/MSK/EXT: No wounds/rashes/edema/amputations, no pain on palpation. Pedal pulses present B/L NEURO: AAOx3, no focal neuro deficits, able to move all 4 extremities Objective Labs 06/27/24 04:42 06/27/24 04:42 Labs: Laboratory Results - last 24 hr 06/25/24 06/25/24 06/25/24 10:25 14:00 15:23 WBC 9.7 RBC 4.67 Hgb 12.9 L Hct 39.3 L MCV 84 MCH 27.6 MCHC 32.8 RDW Std Deviation 41.8 Plt Count 143 Neut % (Auto) 85 H Lymph % (Auto) 8 L Tal[place]ferro % (Auto) 6 Eos % (Auto) 1 Baso % (Auto) 0 Neut # (Auto) 8.3 H Lymph # (Auto) 0.7 L Tal[place]ferro # (Auto) 0.6 Eos # (Auto) 0.1 Baso # (Auto) 0.0 Immature Gran # (Auto) 0.02 H Absolute Nucleated RBC 0.00 Immature Gran % 0 Nucleated RBC % 0 PT INR APTT Sodium 138 Potassium 4.4 Chloride 105 Carbon Dioxide 25.3 Anion Gap 8 BUN 35 H Creatinine 1.6 H Estim Creat Clear Calc 38.9 L eGFR 42 L BUN/Creatinine Ratio 22 H Glucose 112 H Calculated Osmolality 284 Lactic Acid 1.6 Calcium 9.5 Corrected Calcium 9.5 Phosphorus Magnesium Total Bilirubin 1.4 H AST < 10 ALT 10 Alkaline Phosphatase 102 Troponin I Total Protein 7.5 Albumin 4.7 Globulin 2.8 Albumin/Globulin Ratio 1.7 Triglycerides Cholesterol LDL Cholesterol, Calc HDL Cholesterol Cholesterol/HDL Ratio Lipase 31 Procalcitonin 1.23 H TSH Free T4 Ur Collection Type Voided Urine Color Lt-Yellow Urine Clarity Clear Urine pH 5.5 Ur Specific Pierron 1.038 H Urine Protein Negative Urine Glucose (UA) Negative Urine Ketones Negative Urine Blood Negative Urine Nitrite Negative Urine Bilirubin Negative Urine Urobilinogen (Auto) Negative Ur Leukocyte Esterase Trace Urine RBC 3 Urine WBC < 1 Ur Squamous Epith Cells 1 Urine Bacteria None Ur Culture Indicated? Not Indicated Influenza A (Rapid) Negative Influenza B (Rapid) Negative 06/25/24 06/25/24 06/26/24 19:23 23:10 02:42 WBC 16.8 H D 14.9 H RBC 4.46 L 4.47 L Hgb 12.2 L 12.3 L Hct 38.0 L 38.3 L MCV 85 86 MCH 27.4 27.5 MCHC 32.1 32.1 RDW Std Deviation 43.0 44.1 H Plt Count 139 L 142 Neut % (Auto) 91 H 91 H Lymph % (Auto) 4 L 4 L Taliaferro % (Auto) 5 4 Eos % (Auto) 0 0 Baso % (Auto) 0 0 Neut # (Auto) 15.3 H 13.6 H Lymph # (Auto) 0.7 L 0.6 L Tal[place]ferro # (Auto) 0.8 0.6 Eos # (Auto) 0.0 0.0 Baso # (Auto) 0.0 0.0 Immature Gran # (Auto) 0.07 H 0.05 H Absolute Nucleated RBC 0.00 0.00 Immature Gran % 0 0 Nucleated RBC % 0 0 PT INR APTT Sodium 138 138 Potassium 4.4 4.0 Chloride 107 106 Carbon Dioxide 23.4 22.4 Anion Gap 8 10 BUN 28 H 25 H Creatinine 1.4 H 1.3 Estim Creat Clear Calc 44.4 L 47.8 L eGFR 49 L 54 L BUN/Creatinine Ratio 20 19 Glucose 130 H 127 H Calculated Osmolality 283 282 Lactic Acid 2.3 H 1.6 2.3 H Calcium 8.6 8.7 Corrected Calcium 8.6 8.7 Phosphorus 2.4 2.9 Magnesium 1.7 1.8 Total Bilirubin 2.1 H D 2.0 H AST 17 21 ALT 9 L 10 Alkaline Phosphatase 88 81 Troponin I 0.335 H* 1.066 H* D Total Protein 7.1 7.0 Albumin 4.3 4.3 Globulin 2.8 2.7 Albumin/Globulin Ratio 1.5 1.6 Triglycerides 135 Cholesterol 153 LDL Cholesterol, Calc 88 HDL Cholesterol 38 L Cholesterol/HDL Ratio 4.0 Lipase Procalcitonin TSH 5.09 H Free T4 0.93 Ur Collection Type Urine Color Urine Clarity Urine pH Ur Specific [place] Urine Protein Urine Glucose (UA) Urine Ketones Urine Blood Urine Nitrite Urine Bilirubin Urine Urobilinogen (Auto) Ur Leukocyte Esterase Urine RBC Urine WBC Ur Squamous Epith Cells Urine Bacteria Ur Culture Indicated? Influenza A (Rapid) Influenza B (Rapid) 06/26/24 06:39 WBC RBC Hgb Hct MCV MCH MCHC RDW Std Deviation Plt Count Neut % (Auto) Lymph % (Auto) Taliaferro % (Auto) Eos % (Auto) Baso % (Auto) Neut # (Auto) Lymph # (Auto) Taliaferro # (Auto) Eos # (Auto) Baso # (Auto) Immature Gran # (Auto) Absolute Nucleated RBC Immature Gran % Nucleated RBC % PT 13.0 H INR 1.2 APTT 35.9 Sodium Potassium Chloride Carbon Dioxide Anion Gap BUN Creatinine Estim Creat Clear Calc eGFR BUN/Creatinine Ratio Glucose Calculated Osmolality Lactic Acid 1.8 Calcium Corrected Calcium Phosphorus Magnesium Total Bilirubin AST ALT Alkaline Phosphatase Troponin I 1.424 H* D Total Protein Albumin Globulin Albumin/Globulin Ratio Triglycerides Cholesterol LDL Cholesterol, Calc HDL Cholesterol Cholesterol/HDL Ratio Lipase Procalcitonin TSH Free T4 Ur Collection Type Urine Color Urine Clarity Urine pH Ur Specific [place] Urine Protein Urine Glucose (UA) Urine Ketones Urine Blood Urine Nitrite Urine Bilirubin Urine Urobilinogen (Auto) Ur Leukocyte Esterase Urine RBC Urine WBC Ur Squamous Epith Cells Urine Bacteria Ur Culture Indicated? Influenza A (Rapid) Influenza B (Rapid) Quality Measures Quality Measures sepsis Current suspected stage: sepsis Possible source: pulmonary Blood cultures ordered: completed in ED Antibiotic ordered: Yes Advance care planning discussed with:: patient Assessment & Plan Assessment Current Active Medications: Generic Name Dose Route Start Last Admin Trade Name Freq PRN Reason Stop Dose Admin Acetaminophen 650 mg 06/25/24 16:29 06/25/24 18:39 Acetaminophen 325 Mg Tablet PO 07/25/24 16:28 650 mg Q6H PRN Administration Fever >100.5 Acetaminophen 650 mg 06/25/24 16:29 Acetaminophen 325 Mg Tablet PO 07/25/24 16:28 Q6H PRN PAIN SCALE 1-3 (mild Hydrocodone Bitart/Acetaminophen 1 tab 06/26/24 09:57 Hydrocodone/Apap 10/325 Tab PO 07/01/24 09:56 Q6HR PRN PAIN SCALE 4-6 (Moderate Docusate Sodium 100 mg 06/25/24 16:30 06/26/24 08:24 Docusate Sod 100 Mg Capsule PO 07/25/24 16:29 100 mg QDAY BUTCH Administration Protocol Hydralazine HCl 10 mg 06/25/24 19:19 06/25/24 19:34 Hydralazine Inj 20 Mg/Ml Vial IV 07/25/24 19:18 10 mg Q6HR PRN Administration SBP > 170 Piperacillin/Tazobactam/Dextrose 3.375 gm in 50 mls @ 12.5 mls/hr 06/25/24 17:00 06/26/24 05:38 Zosyn IV 07/02/24 16:59 12.5 mls/hr Q8HR BUTCH Administration Protocol Heparin Sodium/Dextrose 25,000 unit in 250 mls @ 11.991 mls/hr 06/26/24 08:00 06/26/24 08:54 Heparin In D5w Ivpb IV 07/10/24 07:59 12 units/kg/hr .[id number] BUTCH 11.991 mls/hr Administration Protocol 12 UNITS/KG/HR Magnesium Sulfate 4 gm in 50 mls @ 12.5 mls/hr 06/26/24 08:04 06/26/24 08:53 Magnesium Sulfate Ivpb IV 06/26/24 12:03 12.5 mls/hr X1 ONE Administration Levothyroxine Sodium 50 mcg 06/26/24 06:00 06/26/24 05:38 Levothyroxine Sodium 25 Mcg Tablet PO 07/26/24 05:59 50 mcg ACBR BUTCH Administration Metoprolol Tartrate 50 mg 06/26/24 09:00 06/26/24 08:24 Metoprolol Tartrate 25 Mg Tablet PO 07/26/24 08:59 50 mg BID BUTCH Administration Morphine Sulfate 6 mg 06/26/24 09:58 Morphine Sulf Inj 10 Mg/Ml Vial IVP 06/30/24 16:40 Q4H PRN PAIN SCALE 7-10 (Severe Ondansetron HCl 4 mg 06/25/24 16:29 Ondansetron Inj 2 Mg/Ml Inj 2 Ml IV 07/25/24 16:28 Q6H PRN NAUSEA OR VOMITING Protocol Pantoprazole Sodium 40 mg 06/26/24 09:00 06/26/24 08:24 Pantoprazole 40 Mg Tablet PO 07/26/24 08:59 40 mg QDAY BUTCH Administration Pharmacy Consult 1 each 06/26/24 09:00 Vancomycin Pharmacy To Dose 1 Each Each IV 07/26/24 08:59 QDAY PRN RX Plan 84-year-old male with past medical history of hypertension, hyperlipidemia, hypothyroidism, BPH, prostate cancer s/p prostatectomy, gout, chronic knee pain on [place] presented to the ED due to abdominal pain. Admitted for sepsis secondary to left pyelonephritis. #Sepsis secondary to #Pyelonephritis #Right-sided pneumonia #GPC bacteremia Patient presented today with lower abdominal pain radiating to the flanks On physical exam with left-sided CVA tenderness positive On admission had SIRS 2 out of 4, tachycardia, febrile with source pyelonephritis and endorgan damage acute kidney injury and hyperbilirubinemia Abdomen/pelvis CT: Left perinephric fat stranding and CXR: Early right base pneumonia Pro-Hilario 1.23, In the ED received 2 L of IV fluids + 1L on admission Lactic acid normalized Flu negative, COVID negative Blood cultures grew GPCs 2x bottles preliminary -Zosyn switched to ceftriaxone - started on IV Vancomycin -Follow-up urine culture #NSTEMI type 2 likely type 2 in the setting of sepsis troponins on admission 0.033 now uptrended to 1.4 EKGs were done shows some ST depressions - on heparin drip - Metoprolol 50mg BID - f/u Echo - Cardiology, Dr. Yanez consulted, appreciate recommendations #ANTONINA- improving Baseline creatinine seems to be 0.9-1.1 Current creatinine 1.6 In the ED received 2 L of IVF's -1 L NS ordered -Renally dose medications -Avoid nephrotoxic meds -Monitor CMP #Hypertensive urgency- improving Likely in the setting of pain Will hold resuming losartan in view of ANTONINA - Metoprolol 50mg BID -IV hydralazine as needed #Elevated T. bili Likely in the setting of sepsis -Will monitor at this time #Chronic pain Patient had history of bilateral knee surgeries takes chronic [place] -Resumed [place] 7.25 325 twice daily as needed #BPH #Prostate cancer status post prostatectomy -Resume Flomax as taken at home #Hypothyroidism Follow-up TSH, free T4 -Resume levothyroxine 50 mcg p.o. daily #GERD -Resumed home pantoprazole Case discussed with my senior Dr. Judge and my attending Dr. Kris Carvalho MD PGY-1 Disposition: Telemetry Fluids: NS Feeding: Cardiac Thrombo prophylaxis: Heparin Gastric Ulcer prophylaxis: Pantoprazole CODE STATUS: Full code Attending Provider Attestation/Addendum I have discussed and was present for the essential components of the history, physical examination, diagnosis, and treatment plan with the resident. I agree with the patient's care as documented by the resident and amended herein by me. Shoaib Ponce DO. Although this document has been carefully reviewed, there may still be some phonetic and other typographical errors. These errors are purely grammatical due to imperfections in the software program and should not be construed in any way to compromise the substance of the patient's medical care during this visit.
[2024-06-26] MEDS: HYDROcodone/APAP 10/325 TAB PO (10:34)
[2024-06-26] MEDS: MORPHINE SULF INJ 10 MG/ML VIAL 6 MG IVP ×3 (12:18→22:41)
[2024-06-26] MEDS: cefTRIAXone/D5w 1gm IV premix 50 ML IV (12:49)
[2024-06-26] MEDS: TAMSULOSIN HCL 0.4 MG CAPSULE PO (13:26)
--- NOTE | 2024-06-26 14:36 | ESCONSULT_ITS ---
<Statement entered by Lolis Yanez MD - 06/28/24 19:12> The patient personally examined and evaluated by me along with resident physician Dr. Middleton PGY2 patient is present to the hospital sepsis pyonephritis and developed atrial fibrillation with paroxysmal episodes now back in sinus rhythm evaluated the patient agree with the treatment plan recommendations. HPI Data of Consult Requesting Physician: Lucio Mascorro MD Admitting Provider: Lucio Mascorro MD Attending Provider: Lucio Mascorro MD Primary Care Provider: Orville Banegas MD Consult Narrative History of present illness: 84 y/o male patient with significant medical history for BPH, prostate cancer s/p prostatectomy, HLD, HTN, gout, hypothyroidism and chronic pain abdominal/flank pain. Patient also endorsing dysuria and nausea. Patient denied fever, chills, chest pain/pressure, cough, diarrhea, constipation or other associated symptoms. Labs were significant for leukocytosis, mild T bili elevation and ANTONINA. Chest x-ray showed right basilar pneumonia while abdomen/pelvis CT showed atrophic right kidney and left perinephric stranding. Patient was initially admitted for sepsis but he was also noted to have in-out episodes of atrial fibrillation with RVR thus cardiology was consulted. Medical Hx: BPH, prostate cancer s/p prostatectomy, HLD, HTN, gout, hypothyroidism, chronic knee pain Medications: gabapentin 300, amitriptyline 25 mg, levothyroxine 50 mcg, losartan 100 mg, memantine 10 mg, pantoprazole 40 mg, propranolol 10 mg, tamsulosin 0.4 mg Surgical Hx: knee surgeries, prostatectomy Social Hx: No smoking, no alcohol or other illicit drug usage Allergies: NKDA Code Status: Full Code 06/26/24: Troponin downtrended, patient sinus rhythm with rate in 60's. Latest echocardiogram in clinic showed normal EF with trace MR and AR. We recommend continuing Metoprolol tartrate 50 mg BID and transitioning patient to p.o. Eliquis 5 mg BID. cc:: cc: Lucio Mascorro MD Review of Systems Review of Systems Systems Reviewed: All systems reviewed, normal except as documented Exam Vital Signs Temp Pulse Resp BP Pulse Ox O2 Del Method O2 Flow Rate 98.8 F 80 26 H 132/77 H 97 Nasal Cannula 2 06/26/24 08:00 06/26/24 08:24 06/26/24 04:00 06/26/24 08:24 06/26/24 08:00 06/26/24 08:00 06/26/24 08:00 Narrative Exam Constitutional: well-developed, well-nourished, in mild distress, lying in bed HEENT: NCAT, EOMI, reactive round pupils b/l, patent nares b/l, moist mucous membranes Lung: CTAB, no wheezing, no rhonchi Heart: Regular S1S2, no murmurs, gallops, or rubs Abdomen: Soft, non-distended, positive lower quadrant pain on palpation, positive left CVA tenderness, bowel sounds present throughout Extremities: No cyanosis, clubbing, or edema, LE pulses present b/l Neurologic: No focal sensory or motor deficits noted, AOx3, appropriate affect Skin: Warm, dry, no lesions or rashes noted Results Labs 06/27/24 04:42 06/27/24 04:42 Labs: Short CBC 06/25/24 06/26/24 Range/Units 19:23 02:42 WBC 16.8 H D 14.9 H (3.8-10.6) Thou/mm3 Hgb 12.2 L 12.3 L (13.5-16.0) g/dL Hct 38.0 L 38.3 L (41.0-53.0) % Plt Count 139 L 142 (140-440) Thou/mm3 BMP 06/25/24 06/26/24 19:23 02:42 Sodium 138 138 Potassium 4.4 4.0 Chloride 107 106 Carbon Dioxide 23.4 22.4 BUN 28 H 25 H Creatinine 1.4 H 1.3 Glucose 130 H 127 H Calcium 8.6 8.7 Cardiac Enzymes 06/25/24 06/25/24 06/26/24 Range/Units 19:23 23:10 06:39 Troponin I 0.335 H* 1.066 H* D 1.424 H* D (0.0-0.045) ng/mL Liver Function 06/25/24 06/26/24 Range/Units 19:23 02:42 Total Bilirubin 2.1 H D 2.0 H (0.3-1.2) mg/dL AST 17 21 (0-34) U/L ALT 9 L 10 (10-49) U/L Alkaline Phosphatase 88 81 (46-116) U/L Albumin 4.3 4.3 (3.4-4.8) gm/dL Urine 06/25/24 Range/Units 14:00 Urine Color Lt-Yellow (Lt Yel-Yel) Urine Clarity Clear (Clear/Hazy) Urine pH 5.5 (5.0-7.0) Ur Specific [place] 1.038 H (1.001-1.035) Urine Protein Negative (Neg - Trace) Urine Glucose (UA) Negative (Negative) Quality Measures Quality Measures sepsis Current suspected stage: sepsis Possible source: pulmonary Blood cultures ordered: completed in ED Antibiotic ordered: Yes Advance care planning discussed with:: other Medications Home Medications and Allergies Home Medications ?Medication ?Instructions ?Recorded ?Confirmed ?Type hydrocodone 7.5 mg-acetaminophen 1 tab PO BID PRN Pain 05/03/18 06/25/24 History 325 mg tablet ibuprofen 600 mg tablet 600 mg PO TID PRN Pain 05/03/18 06/25/24 History gabapentin 300 mg capsule 300 cap PO TID 11/14/21 06/25/24 History losartan 100 mg tablet 100 tab PO DAILY 11/14/21 06/25/24 History propranolol 10 mg tablet 10 tab PO DAILY 11/14/21 06/25/24 History amitriptyline 25 mg tablet 25 mg PO HS 04/17/24 06/25/24 History levothyroxine 50 mcg tablet 50 mcg PO DAILY 04/17/24 06/25/24 History memantine 10 mg tablet 10 mg PO BID 04/17/24 06/25/24 History pantoprazole 40 mg tablet,delayed 40 mg PO DAILY 04/17/24 06/25/24 History release tamsulosin 0.4 mg capsule 0.4 mg PO QDAY 06/25/24 06/25/24 History Allergies Allergy/AdvReac Type Severity Reaction Status Date / Time No Known Allergies Allergy Verified 06/25/24 19:53 Visit Medications Acetaminophen (Acetaminophen 325 Mg Tablet) 650 mg PO Q6H PRN PRN Reason: Fever >100.5 Stop: 07/25/24 16:28 Last Admin: 06/25/24 18:39 Dose: 650 mg Acetaminophen (Acetaminophen 325 Mg Tablet) 650 mg PO Q6H PRN PRN Reason: PAIN SCALE 1-3 (mild Stop: 07/25/24 16:28 Docusate Sodium (Docusate Sod 100 Mg Capsule) 100 mg PO QDAY [facility]; Protocol Stop: 07/25/24 16:29 Last Admin: 06/26/24 08:24 Dose: 100 mg Hydralazine HCl (Hydralazine Inj 20 Mg/Ml Vial) 10 mg IV Q6HR PRN PRN Reason: SBP > 170 Stop: 07/25/24 19:18 Last Admin: 06/25/24 19:34 Dose: 10 mg Heparin Sodium/Dextrose (Heparin In D5w Ivpb) 25,000 unit in 250 mls @ 11.991 mls/hr IV .[id number] [facility]; Protocol Stop: 07/10/24 07:59 Last Admin: 06/26/24 08:54 Dose: 12 units/kg/hr, 11.991 mls/hr Ceftriaxone Sodium/Dextrose (Rocephin/D5w 1gm Iv Premix) 50 mls @ 100 mls/hr IV QDAY [facility] Stop: 07/03/24 11:54 Last Admin: 06/26/24 12:49 Dose: 100 mls/hr Ketorolac Tromethamine (Ketorolac Inj 30 Mg/Ml Vial) 15 mg IVP Q6HR PRN PRN Reason: PAIN SCALE 4-6 (Moderate Stop: 07/01/24 11:55 Levothyroxine Sodium (Levothyroxine Sodium 25 Mcg Tablet) 50 mcg PO ACBR [facility] Stop: 07/26/24 05:59 Last Admin: 06/26/24 05:38 Dose: 50 mcg Metoprolol Tartrate (Metoprolol Tartrate 25 Mg Tablet) 50 mg PO BID [facility] Stop: 07/26/24 08:59 Last Admin: 06/26/24 08:24 Dose: 50 mg Morphine Sulfate (Morphine Sulf Inj 10 Mg/Ml Vial) 6 mg IVP Q4H PRN PRN Reason: PAIN SCALE 7-10 (Severe Stop: 06/30/24 16:40 Last Admin: 06/26/24 12:18 Dose: 6 mg Ondansetron HCl (Ondansetron Inj 2 Mg/Ml Inj 2 Ml) 4 mg IV Q6H PRN; Protocol PRN Reason: NAUSEA OR VOMITING Stop: 07/25/24 16:28 Pantoprazole Sodium (Pantoprazole 40 Mg Tablet) 40 mg PO QDAY [facility] Stop: 07/26/24 08:59 Last Admin: 06/26/24 08:24 Dose: 40 mg Pharmacy Consult (Vancomycin Pharmacy To Dose 1 Each Each) 1 each IV QDAY PRN PRN Reason: RX Stop: 07/26/24 08:59 Tamsulosin HCl (Tamsulosin Hcl 0.4 Mg Capsule) 0.4 mg PO QDAY BUTCH Stop: 07/26/24 13:14 Last Admin: 06/26/24 13:26 Dose: 0.4 mg Discontinued Medications Hydrocodone Bitart/Acetaminophen (Hydrocodone/Apap 7.5/325 Tablet) 1 tab PO BID PRN PRN Reason: PAIN SCALE 4-6 (Moderate Stop: 06/30/24 20:59 Hydrocodone Bitart/Acetaminophen (Hydrocodone/Apap 10/325 Tab) 1 tab PO Q6HR PRN PRN Reason: PAIN SCALE 4-6 (Moderate Stop: 07/01/24 09:56 Last Admin: 06/26/24 10:34 Dose: 1 tab Heparin Sodium (Porcine) (Heparin Sod Inj 5000 Unit/Ml Vial) 5,000 unit SC Q8HR BUTCH Stop: 07/09/24 16:44 Last Admin: 06/25/24 21:22 Dose: 5,000 unit Heparin Sodium (Porcine) (Heparin Sod Inj 5000 Unit/Ml Vial) 4,000 unit IV X1 ONE; Protocol Stop: 06/26/24 08:16 Last Admin: 06/26/24 08:53 Dose: 4,000 unit Acetaminophen (Ofirmev Inj) 1,000 mg in 100 mls @ 250 mls/hr IV Q6H BUTCH Stop: 06/26/24 05:13 Last Infusion: 06/25/24 12:18 Dose: Infused Sodium Chloride (Ns) 2,000 mls @ 500 mls/hr IV .Q4H ONE Stop: 06/25/24 14:49 Last Infusion: 06/25/24 16:30 Dose: Infused Piperacillin/Tazobactam/Dextrose (Zosyn) 3.375 gm in 50 mls @ 100 mls/hr IV X1 ONE Stop: 06/25/24 11:20 Last Infusion: 06/25/24 11:55 Dose: Infused Sodium Chloride (Ns) 1,000 mls @ 999 mls/hr IV .Q1H1M ONE Stop: 06/25/24 17:32 Last Admin: 06/25/24 17:45 Dose: 999 mls/hr Piperacillin/Tazobactam/Dextrose (Zosyn) 3.375 gm in 50 mls @ 12.5 mls/hr IV Q8HR BUTCH; Protocol Stop: 07/02/24 16:44 Piperacillin/Tazobactam/Dextrose (Zosyn) 3.375 gm in 50 mls @ 100 mls/hr IV Q6HR BUTCH; Protocol Stop: 07/02/24 17:59 Piperacillin/Tazobactam/Dextrose (Zosyn) 3.375 gm in 50 mls @ 12.5 mls/hr IV Q8HR BUTCH; Protocol Stop: 07/02/24 16:59 Last Admin: 06/26/24 05:38 Dose: 12.5 mls/hr Sodium Chloride (Ns) 250 mls @ 999 mls/hr IV .Q16M ONE Stop: 06/26/24 00:02 Last Infusion: 06/26/24 01:27 Dose: Infused Vancomycin HCl/Dextrose (Vancomycin/D5w 1,250 Mg Ivpb) 250 mls @ 120 mls/hr IV X1 ONE Stop: 06/26/24 10:04 Last Admin: 06/26/24 10:24 Dose: 120 mls/hr Magnesium Sulfate (Magnesium Sulfate Ivpb) 4 gm in 50 mls @ 12.5 mls/hr IV X1 ONE Stop: 06/26/24 12:03 Last Admin: 06/26/24 08:53 Dose: 12.5 mls/hr Morphine Sulfate (Morphine Sulf Inj 10 Mg/Ml Vial) 4 mg IVP X1 ONE Stop: 06/25/24 11:48 Last Admin: 06/25/24 11:54 Dose: 4 mg Morphine Sulfate (Morphine Sulf Inj 10 Mg/Ml Vial) 2 mg IVP Q2H PRN PRN Reason: PAIN SCALE 7-10 (Severe Stop: 06/30/24 16:40 Morphine Sulfate (Morphine Sulf Inj 10 Mg/Ml Vial) 2 mg IVP Q4H PRN PRN Reason: PAIN SCALE 7-10 (Severe Stop: 06/30/24 16:40 Last Admin: 06/25/24 17:20 Dose: 2 mg Morphine Sulfate (Morphine Sulf Inj 10 Mg/Ml Vial) 4 mg IVP Q4H PRN PRN Reason: PAIN SCALE 7-10 (Severe Stop: 06/30/24 16:40 Last Admin: 06/26/24 08:34 Dose: 4 mg Ondansetron HCl (Ondansetron Inj 2 Mg/Ml Inj 2 Ml) 4 mg IV X1 ONE; Protocol Stop: 06/25/24 11:49 Last Admin: 06/25/24 11:54 Dose: 4 mg Assessment & Plan Plan 84 y/o male patient with significant medical history for BPH, prostate cancer s/p prostatectomy, HLD, HTN, gout, hypothyroidism and chronic pain abdominal/flank pain. Patient admitted for sepsis and found to have Afib with RVR. #Atrial fibrillation with RVR likely secondary to #Sepsis #Hypertension Plan: - Currently patient sinus rhythm in 60's - Continue Metoprolol tartrate 50 mg BID - Transition to Eliquis 5 mg BID - Echocardiogram in clinic showed normal EF with trace AR and MR - Replete electrolytes as needed - Treat underlying infections #Troponinemia type II, secondary to sepsis Trops peaked at 1.4 before downtrending Patient is not complaining of chest pain/pressure #Sepsis secondary to #Possible pyelonephritis #Pneumonia #GERD #BPH #ANTONINA #Chronic knee pain #Hypothyroidism -Management per primary team This patient care was discussed with my attending Dr. Beau De Anda MD PGY-2 Disclaimer: Minor errors in impregnator and drier helper may be present since this note was dictated by speech recognition software.
--- NOTE | 2024-06-26 14:41 | PC.SS ---
Follow up note: Pt is on IV heparin drip. IV morphin for pain control. On IV antibiotic.
[2024-06-26 15:10] LABS: Troponin I 1.126 ng/mL (0.0-0.045)
[2024-06-26] MEDS: ASPIRIN EC 81 MG TABEC PO (15:40)
[2024-06-26] MEDS: KETOROLAC INJ 30 MG/ML VIAL 15 MG IVP (15:40)
--- NOTE | 2024-06-26 15:58 | PC.SS ---
SS met with patient regarding his d/c plan. Pt is alert/oriented. Pt was admitted for Sepsis. Pt confirmed demographic and contact information is correct on facesheet. Pt resides with son and granddaughter. Pt ambulates independently without assistance or DME. Pt is ok with all ADLs. Pt does not use O2 at home. Pt is currently on 2 liters of O2. Pt named his daughter, Nelida Gaona medical decision maker if he is unable. SS provided verbal d/c options for home or SNF. Pt refused SNF and his choice is to return home upon d/c. Pt does not have an advance directive, SS offered, and pt was receptive. SS provide dtr, Nelida with the advance directive in [place]ij[place] and Malay upon her request. Dtr will provide transportation home at d/c. Pt states he followed up with PCP June 07, 2024 D/C plan: Return home Next of Kin: Nelida Gaona, daughter, phone# [phone] PCP: Dr. Orville Banegas Address: Correct on facesheet
[2024-06-26 16:59] LABS: Partial Thromboplastin Time 86.3 Seconds (22.0-36.0)
--- NOTE | 2024-06-26 18:59 | PC.NURSE ---
Verified current PTT and Heparin infusion rate with Benji RN at bedside during shift report
[2024-06-26] MEDS: MEMANTINE HCL 5 MG TABLET 10 MG PO (20:47)
[2024-06-27] VITALS (11 sets, daily range): BP systolic 106–149; BP diastolic 64–90; PULSE 48–72; RESP 16–21; TEMP 36.1–36.6; O2SAT 94–99; BMI 32.6
[2024-06-27 02:11] LABS: Partial Thromboplastin Time 64.7 Seconds (22.0-36.0)
[2024-06-27] MEDS: KETOROLAC INJ 30 MG/ML VIAL 15 MG IVP ×3 (02:31→23:09)
[2024-06-27 05:19] LABS: Basophils % (Auto) 0 % (0-2.5); Eosinophils % (Auto) 0 % (0-10); Hematocrit 33.2 % (41.0-53.0); Hemoglobin 10.8 g/dL (13.5-16.0); Immature Granulocytes % (Auto) 0 % (0-0); Immature Granulocytes Auto 0.02 Thou/mm3 (0.00-0.00); Lymphocytes # (Auto) 0.7 Thou/mm3 (1.0-4.8); Lymphocytes % (Auto) 9 % (10-50); Mean Corpuscular HGB Conc 32.5 g/dl (31.0-37.0); Mean Corpuscular Hemoglobin 27.8 pg (25.0-35.0); Mean Corpuscular Volume 85 fL (80-100); Monocytes # (Auto) 0.5 Thou/mm3 (0.0-0.8); Monocytes % (Auto) 7 % (0-12); Neutrophils # (Auto) 6.2 Thou/mm3 (1.8-7.7); Neutrophils % (Auto) 84 % (37-80); Nucleated Red Blood Cell % 0 /100 WBC (0); Platelet Count 116 Thou/mm3 (140-440); RDW Standard Deviation 45.1 fL (35.1-43.9); Red Blood Count 3.89 Miln/mm3 (4.50-5.90); White Blood Count 7.4 Thou/mm3 (3.8-10.6)
[2024-06-27] MEDS: LEVOTHYROXINE SODIUM 25 MCG TABLET 50 MCG PO (05:45)
[2024-06-27] MEDS: MORPHINE SULF INJ 10 MG/ML VIAL 6 MG IVP ×3 (05:45→20:28)
[2024-06-27 05:46] LABS: Alanine Aminotransferase 12 U/L (10-49); Albumin, Serum 3.8 gm/dL (3.4-4.8); Albumin/Globulin Ratio 1.4 (1.2-2.2); Alkaline Phosphatase 69 U/L (46-116); Anion Gap 6 (7-16); Aspartate Amino Transferase 28 U/L (0-34); BUN/Creatinine Ratio 24 Ratio (12-20); Blood Urea Nitrogen 31 mg/dL (9-23); Calcium 8.5 mg/dL (8.3-10.6); Calcium (Corrected) 8.7 mg/dL (8.5-10.1); Carbon Dioxide 25.8 mMol/L (20.0-31.0); Chloride 103 mMol/L (98-107); Creatinine (Component) 1.3 mg/dL (0.6-1.3); Estimated Creatinine Clearance 47.5 mL/min (>60); Globulin 2.7 gm/dL (2.3-3.5); Glucose 132 mg/dL (74-106); Magnesium 2.5 mg/dL (1.6-2.6); Osmolality,Calculated 278 (275-295); Phosphorous 2.7 mg/dL (2.4-5.1); Potassium 4.1 mMol/L (3.4-5.1); Sodium 135 mMol/L (136-145); Total Protein 6.5 gm/dL (5.7-8.2); eGFR 54 See Note
[2024-06-27 05:47] LABS: Bilirubin,Total 1.2 mg/dL (0.3-1.2)
[2024-06-27 07:36] LABS: Vancomycin,Random 7.1 mcg/mL
[2024-06-27] MEDS: METOPROLOL TARTRATE 25 MG TABLET 50 MG PO ×2 (08:15→20:30)
[2024-06-27] MEDS: APIXABAN 2.5 MG TABLET 5 MG PO ×2 (08:15→20:31)
[2024-06-27] MEDS: cefTRIAXone/D5w 1gm IV premix 50 ML IV (08:16)
[2024-06-27] MEDS: MEMANTINE HCL 5 MG TABLET 10 MG PO ×2 (08:16→20:31)
[2024-06-27] MEDS: ASPIRIN EC 81 MG TABEC PO (08:16)
[2024-06-27] MEDS: TAMSULOSIN HCL 0.4 MG CAPSULE PO (08:16)
[2024-06-27] MEDS: PANTOPRAZOLE 40 MG TABLET PO (08:16)
[2024-06-27] MEDS: DOCUSATE SOD 100 MG CAPSULE PO (08:16)
--- NOTE | 2024-06-27 08:53 | PD.RESPRO ---
Documentation for date of: 06/27/24 ATTESTATION: I saw and examined the patient this morning, and I agree with current management stated by the resident. Will continue to monitor patient during their stay. Disclaimer: Despite multiple revisions, due to the dictation software being used, the document bellow may not be free of grammatical errors including phonetic/typographic errors. However, this does not deter from our commitment to providing health care in the patient's best interest in mind. Dr. Trevor Judge, PGY-3 Subjective Subjective Interval history: Patient seen today at the bedside found awake, alert, orientedx3. No overnight events reported. States improvement in abdominal pain. Vital signs stable at this time. Labs at this time stable. 500ml bolus given as patient looks clinically dehydrated and blood pressure at this time is soft. Echo was read showed EF 60-65%. Cardiology recommended starting eliquis 5mg BID and to continue metoprolol tartrate 50mg BID and to discontinue the heparin drip. Blood cultures grew gram positive cocci, patient is already on vancomycin, will repeat cultures and follow up, ID was consulted as well. Exam Vital Signs Temp Pulse Resp BP Pulse Ox O2 Del Method O2 Flow Rate 97.5 F 72 17 119/74 99 Nasal Cannula 3 06/27/24 08:00 06/27/24 08:15 06/27/24 08:00 06/27/24 08:15 06/27/24 08:00 06/27/24 08:00 06/27/24 04:00 Narrative Exam Physical Exam GENERAL: NAD, AAOx3 HEENT: Moist mucosa. Eyes open, symmetrical, & clear CARDIO: Heart RRR, no obvious murmurs PULM: No noted coughing/dyspnea CTA B/L, no R/W/R GI: Abdomen soft, nondistended, pain on palpation more prominent in the bilateral lower quadrants-improving, positive left CVA-improving SKIN/MSK/EXT: No wounds/rashes/edema/amputations, no pain on palpation. Pedal pulses present B/L NEURO: AAOx3, no focal neuro deficits, able to move all 4 extremities Objective Labs 06/28/24 04:50 06/28/24 04:50 Labs: Laboratory Results - last 24 hr 06/26/24 06/26/24 06/26/24 06:39 14:17 15:28 WBC RBC Hgb Hct MCV MCH MCHC RDW Std Deviation Plt Count Neut % (Auto) Lymph % (Auto) [place] % (Auto) Eos % (Auto) Baso % (Auto) Neut # (Auto) Lymph # (Auto) [place] # (Auto) Eos # (Auto) Baso # (Auto) Immature Gran # (Auto) Absolute Nucleated RBC Immature Gran % Nucleated RBC % APTT 86.3 H D Sodium Potassium Chloride Carbon Dioxide Anion Gap BUN Creatinine Estim Creat Clear Calc eGFR BUN/Creatinine Ratio Glucose Calculated Osmolality Calcium Corrected Calcium Phosphorus Magnesium Total Bilirubin AST ALT Alkaline Phosphatase Troponin I 1.424 H* D 1.126 H* D Total Protein Albumin Globulin Albumin/Globulin Ratio Random Vancomycin 06/27/24 06/27/24 01:07 04:42 WBC 7.4 D RBC 3.89 L Hgb 10.8 L Hct 33.2 L MCV 85 MCH 27.8 MCHC 32.5 RDW Std Deviation 45.1 H Plt Count 116 L Neut % (Auto) 84 H Lymph % (Auto) [address] [place] % (Auto) 7 Eos % (Auto) 0 Baso % (Auto) 0 Neut # (Auto) 6.2 Lymph # (Auto) 0.[address] [place] # (Auto) 0.5 Eos # (Auto) 0.0 Baso # (Auto) 0.0 Immature Gran # (Auto) 0.02 H Absolute Nucleated RBC 0.00 Immature Gran % 0 Nucleated RBC % 0 APTT 64.7 H D Sodium 135 L Potassium 4.1 Chloride 103 Carbon Dioxide 25.8 Anion Gap 6 L BUN 31 H Creatinine 1.3 Estim Creat Clear Calc 47.5 L eGFR 54 L BUN/Creatinine Ratio 24 H Glucose 132 H Calculated Osmolality 278 Calcium 8.5 Corrected Calcium 8.7 Phosphorus 2.7 Magnesium 2.5 Total Bilirubin 1.2 D AST 28 ALT 12 Alkaline Phosphatase 69 Troponin I Total Protein 6.5 Albumin 3.8 D Globulin 2.7 Albumin/Globulin Ratio 1.4 Random Vancomycin 7.1 Quality Measures Quality Measures sepsis Current suspected stage: sepsis Possible source: pulmonary Blood cultures ordered: completed in ED Antibiotic ordered: Yes Advance care planning discussed with:: patient Assessment & Plan Assessment Current Active Medications: Generic Name Dose Route Start Last Admin Trade Name Freq PRN Reason Stop Dose Admin Acetaminophen 650 mg 06/25/24 16:29 06/25/24 18:39 Acetaminophen 325 Mg Tablet PO 07/25/24 16:28 650 mg Q6H PRN Administration Fever >100.5 Acetaminophen 650 mg 06/25/24 16:29 Acetaminophen 325 Mg Tablet PO 07/25/24 16:28 Q6H PRN PAIN SCALE 1-3 (mild Apixaban 5 mg 06/27/24 09:00 06/27/24 08:15 Apixaban 2.5 Mg Tablet PO 07/27/24 08:59 5 mg BID BUTCH Administration Aspirin 81 mg 06/26/24 15:45 06/27/24 08:16 Aspirin Ec 81 Mg Tabec PO 07/26/24 15:44 81 mg QDAY BUTCH Administration Docusate Sodium 100 mg 06/25/24 16:30 06/27/24 08:16 Docusate Sod 100 Mg Capsule PO 07/25/24 16:29 100 mg QDAY BUTCH Administration Protocol Hydralazine HCl 10 mg 06/25/24 19:19 06/25/24 19:34 Hydralazine Inj 20 Mg/Ml Vial IV 07/25/24 19:18 10 mg Q6HR PRN Administration SBP > 170 Ceftriaxone Sodium/Dextrose 50 mls @ 100 mls/hr 06/26/24 11:55 06/27/24 08:16 Rocephin/D5w 1gm Iv Premix IV 07/03/24 11:54 100 mls/hr QDAY BUTCH Administration Vancomycin/Sodium Chloride 200 mls @ 120 mls/hr 06/27/24 10:00 Vancomycin/Ns 1 Gm Ivpb IV 07/04/24 09:59 QDAY@1000 BUTCH Ketorolac Tromethamine 15 mg 06/26/24 11:56 06/27/24 08:41 Ketorolac Inj 30 Mg/Ml Vial IVP 07/01/24 11:55 15 mg Q6HR PRN Administration PAIN SCALE 4-6 (Moderate Levothyroxine Sodium 50 mcg 06/26/24 06:00 06/27/24 05:45 Levothyroxine Sodium 25 Mcg Tablet PO 07/26/24 05:59 50 mcg ACBR BUTCH Administration Memantine 10 mg 06/26/24 21:00 06/27/24 08:16 Memantine Hcl 5 Mg Tablet PO 07/26/24 20:59 10 mg BID BUTCH Administration Metoprolol Tartrate 50 mg 06/26/24 09:00 06/27/24 08:15 Metoprolol Tartrate 25 Mg Tablet PO 07/26/24 08:59 50 mg BID BUTCH Administration Morphine Sulfate 6 mg 06/26/24 09:58 06/27/24 05:45 Morphine Sulf Inj 10 Mg/Ml Vial IVP 06/30/24 16:40 6 mg Q4H PRN Administration PAIN SCALE 7-10 (Severe Ondansetron HCl 4 mg 06/25/24 16:29 Ondansetron Inj 2 Mg/Ml Inj 2 Ml IV 07/25/24 16:28 Q6H PRN NAUSEA OR VOMITING Protocol Pantoprazole Sodium 40 mg 06/26/24 09:00 06/27/24 08:16 Pantoprazole 40 Mg Tablet PO 07/26/24 08:59 40 mg QDAY BUTCH Administration Pharmacy Consult 1 each 06/26/24 09:00 Vancomycin Pharmacy To Dose 1 Each Each IV 07/26/24 08:59 QDAY PRN RX Tamsulosin HCl 0.4 mg 06/26/24 13:15 06/27/24 08:16 Tamsulosin Hcl 0.4 Mg Capsule PO 07/26/24 13:14 0.4 mg QDAY BUTCH Administration Plan 84-year-old male with past medical history of hypertension, hyperlipidemia, hypothyroidism, BPH, prostate cancer s/p prostatectomy, gout, chronic knee pain on Gary presented to the ED due to abdominal pain. Admitted for sepsis secondary to left pyelonephritis. #Sepsis secondary to #Pyelonephritis #Right-sided pneumonia #GPC bacteremia Patient presented today with lower abdominal pain radiating to the flanks On physical exam with left-sided CVA tenderness positive On admission had SIRS 2 out of 4, tachycardia, febrile with source pyelonephritis and endorgan damage acute kidney injury and hyperbilirubinemia Abdomen/pelvis CT: Left perinephric fat stranding and CXR: Early right base pneumonia Pro-Hilario 1.23, In the ED received 2 L of IV fluids + 1L on admission Lactic acid normalized Flu negative, COVID negative Blood cultures grew GPCs 2x bottles -on ceftriaxone -on IV Vancomycin -Follow-up urine culture -ID consulted, appreciate recommendations -follow up Blood cultures #NSTEMI type 2 #Paroxysmal Atrial fibrillation likely type 2 in the setting of sepsis troponins on admission 0.033 now uptrended to 1.4 EKGs were done shows some ST depressions Afib reported in and out of afib on telemetry 06/25/2024 currently on sinus rhythm Echo showed EF 60-65% mild dilation of ascending aorita, mild dilation of aortic root - on Eliquis 5mg BID - Metoprolol 50mg BID - Cardiology, Dr. Yanez consulted, appreciate recommendations #ANTONINA- improving Baseline creatinine seems to be 0.9-1.1 Current creatinine 1.6 In the ED received 2 L of IVF's + 1LNS -500ml bolus NS ordered -Renally dose medications -Avoid nephrotoxic meds -Monitor CMP #Hypertensive urgency- resolved Likely in the setting of pain Will hold resuming losartan in view of soft BP - Metoprolol 50mg BID -IV hydralazine as needed #Elevated T. bili-resolved Likely in the setting of sepsis -Will monitor at this time #Chronic pain Patient had history of bilateral knee surgeries takes chronic Gary -ketorolac prn -morphine prn #BPH #Prostate cancer status post prostatectomy -Resumed Flomax as taken at home #Hypothyroidism TSH elevated, free T4 nl, likely subclinical hypothyroidism -Resume levothyroxine 50 mcg p.o. daily #GERD -Resumed home pantoprazole Case discussed with my senior Dr. Judge and my attending Dr. Subha Carvalho MD PGY-1 Disposition: Telemetry Fluids: none Feeding: Cardiac Thrombo prophylaxis: Eliquis Gastric Ulcer prophylaxis: Pantoprazole CODE STATUS: Full code Attending Provider Attestation/Addendum I have examined the patient, reviewed labs and imaging findings, discussed the case with the resident(s), and reviewed entered orders. I agree with the plan of care as outlined in this note, with these additional summaries/recommendations: Patient is a 84-year-old male with a medical history of chronic back pain, BPH, prostate cancer, status post TURP, neuropathy, hypothyroidism, primary hypertension, and hyperlipidemia who presents to [facility] emergency department on 06/25/2024 with chief complaints of lower abdominal pain, left flank pain, and fevers that started last night. Patient was diagnosed with sepsis and hospitalist team consulted for continuation of care. #Sepsis #Pyelonephritis # Bacteremia SIRS: 2 out of 4 SIRS criteria met (body temp >38C, HR >90) qSOFA: 0 points indicating low risk of mortality from sepsis Presented with flank pain, fever/chills, and possible urinary symptoms Labs notable for WBC 9.7 (baseline in 5 range), Pro-Hilario 1.23, and endorgan damage with ANTONINA and hyperbilirubinemia Abdomen/pelvis CT: Left perinephric fat stranding and CXR: Early right base pneumonia Meets criteria for sepsis. Most likely source is pyelonephritis versus less likely pneumonia versus less likely viral infection Order daily CBC, blood cultures, urine culture, COVID, and influenza Antibiotics: Continue IV Rocephin and vancomycin Fluids: Received 1.5 L fluids in ED. Will give additional 1.5 L to meet sepsis 30 cc/kg protocol No need for pressors or source control at this time Tylenol as needed for fever Plan: Continue IV abx, blood cxs preliminary showing GPC 2 out of 2. Repeat blood cultures ordered and infectious disease consulted. Urine culture pending. Repeat hematology panel in AM # New onset atrial fibrillation Most likely secondary to severe underlying sepsis Echocardiogram shows EF 60 to 65% with mildly dilated ascending aorta Cardiology following Plan: Heart rate now much improved. Continue metoprolol for rate control and Eliquis for elevated [id number] score #Chronic Pain: Continue home Gary 7.5?3 25 twice daily as needed # GERD: Continue home pantoprazole # Hypothyroidism: Continue home levothyroxine 50 mcg p.o. daily # BPH/prostate cancer: Continue Flomax. Outpatient follow-up. # Primary hypertension: home antihypertensives as tolerated Dr. Mascorro
[2024-06-27] MEDS: SODIUM CHLORIDE 0.9% 500 ML 500 ML 999 ML IV (09:25)
[2024-06-27] MEDS: VANCOMYCIN/NS 1 GM IVPB 200 ML IV (10:25)
--- NOTE | 2024-06-27 14:31 | ESPR_ITS ---
<Statement entered by Lolis Yanez MD - 06/28/24 19:19> I evaluated the patient with PGY 2 Dr. Middleton agree with treatment plan recommendation patient appears to be back in sinus rhythm but appears to have occasional episodes of A-fib agree with treatment plan recommendation as documented by Dr. Middleton. Documentation for date of: 06/27/24 Subjective Subjective Interval history: 84 y/o male patient with significant medical history for BPH, prostate cancer s/p prostatectomy, HLD, HTN, gout, hypothyroidism and chronic pain abdominal/flank pain. Patient also endorsing dysuria and nausea. Patient denied fever, chills, chest pain/pressure, cough, diarrhea, constipation or other associated symptoms. Labs were significant for leukocytosis, mild T bili elevation and ANTONINA. Chest x-ray showed right basilar pneumonia while abdomen/pelvis CT showed atrophic right kidney and left perinephric stranding. Patient was initially admitted for sepsis but he was also noted to have in-out episodes of atrial fibrillation with RVR thus cardiology was consulted. 06/26/24: Troponin downtrended, patient sinus rhythm with rate in 60's. Latest echocardiogram in clinic showed normal EF with trace MR and AR. We recommend continuing Metoprolol tartrate 50 mg BID and transitioning patient to p.o. Eliquis 5 mg BID. 06/26/24: Patient has been in sinus rhythm. WBC downtrending, patient states there is mild improvement in pain. He is still endorsing left lower quadrant and back pain. 2/2 blood cultures grew GPC, infectious disease has been consulted, patient currently on Rocephin and Vanc. Continue with metoprolol tartrate and eliquis. Exam Vital Signs Temp Pulse Resp BP Pulse Ox O2 Del Method O2 Flow Rate 97.1 F 54 L 17 106/64 94 L Nasal Cannula 3 06/27/24 12:00 06/27/24 13:07 06/27/24 12:00 06/27/24 12:06/27/24 12:06/27/24 12:06/27/24 04:00 Narrative Exam Constitutional: well-developed, well-nourished, in mild distress, lying in bed HEENT: NCAT, EOMI, reactive round pupils b/l, patent nares b/l, moist mucous membranes Lung: CTAB, no wheezing, no rhonchi Heart: Regular S1S2, no murmurs, gallops, or rubs Abdomen: Soft, non-distended, positive lower quadrant pain on palpation, positive left CVA tenderness, bowel sounds present throughout Extremities: No cyanosis, clubbing, or edema, LE pulses present b/l Neurologic: No focal sensory or motor deficits noted, AOx3, appropriate affect Skin: Warm, dry, no lesions or rashes noted Objective Labs 06/27/24 04:42 06/27/24 04:42 Labs: Laboratory Results - last 24 hr 06/26/24 06/26/24 06/27/24 14:17 15:28 01:07 WBC RBC Hgb Hct MCV MCH MCHC RDW Std Deviation Plt Count Neut % (Auto) Lymph % (Auto) [place] % (Auto) Eos % (Auto) Baso % (Auto) Neut # (Auto) Lymph # (Auto) [place] # (Auto) Eos # (Auto) Baso # (Auto) Immature Gran # (Auto) Absolute Nucleated RBC Immature Gran % Nucleated RBC % APTT 86.3 H D 64.7 H D Sodium Potassium Chloride Carbon Dioxide Anion Gap BUN Creatinine Estim Creat Clear Calc eGFR BUN/Creatinine Ratio Glucose Calculated Osmolality Calcium Corrected Calcium Phosphorus Magnesium Total Bilirubin AST ALT Alkaline Phosphatase Troponin I 1.126 H* D Total Protein Albumin Globulin Albumin/Globulin Ratio Random Vancomycin 06/27/24 04:42 WBC 7.4 D RBC 3.89 L Hgb 10.8 L Hct 33.2 L MCV 85 MCH 27.8 MCHC 32.5 RDW Std Deviation 45.1 H Plt Count 116 L Neut % (Auto) 84 H Lymph % (Auto) 9 L [place] % (Auto) 7 Eos % (Auto) 0 Baso % (Auto) 0 Neut # (Auto) 6.2 Lymph # (Auto) 0.7 L [place] # (Auto) 0.5 Eos # (Auto) 0.0 Baso # (Auto) 0.0 Immature Gran # (Auto) 0.02 H Absolute Nucleated RBC 0.00 Immature Gran % 0 Nucleated RBC % 0 APTT Sodium 135 L Potassium 4.1 Chloride 103 Carbon Dioxide 25.8 Anion Gap 6 L BUN 31 H Creatinine 1.3 Estim Creat Clear Calc 47.5 L eGFR 54 L BUN/Creatinine Ratio 24 H Glucose 132 H Calculated Osmolality 278 Calcium 8.5 Corrected Calcium 8.7 Phosphorus 2.7 Magnesium 2.5 Total Bilirubin 1.2 D AST 28 ALT 12 Alkaline Phosphatase 69 Troponin I Total Protein 6.5 Albumin 3.8 D Globulin 2.7 Albumin/Globulin Ratio 1.4 Random Vancomycin 7.1 Quality Measures Quality Measures sepsis Current suspected stage: sepsis Possible source: pulmonary Blood cultures ordered: completed in ED Antibiotic ordered: Yes Advance care planning discussed with:: other Assessment & Plan Assessment Current Active Medications: Generic Name Dose Route Start Last Admin Trade Name Freq PRN Reason Stop Dose Admin Acetaminophen 650 mg 06/25/24 16:29 06/25/24 18:39 Acetaminophen 325 Mg Tablet PO 07/25/24 16:28 650 mg Q6H PRN Administration Fever >100.5 Acetaminophen 650 mg 06/25/24 16:29 Acetaminophen 325 Mg Tablet PO 07/25/24 16:28 Q6H PRN PAIN SCALE 1-3 (mild Apixaban 5 mg 06/27/24 09:00 06/27/24 08:15 Apixaban 2.5 Mg Tablet PO 07/27/24 08:59 5 mg BID BUTCH Administration Aspirin 81 mg 06/26/24 15:45 06/27/24 08:16 Aspirin Ec 81 Mg Tabec PO 07/26/24 15:44 81 mg QDAY BUTCH Administration Docusate Sodium 100 mg 06/25/24 16:30 06/27/24 08:16 Docusate Sod 100 Mg Capsule PO 07/25/24 16:29 100 mg QDAY BUTCH Administration Protocol Hydralazine HCl 10 mg 06/25/24 19:19 06/25/24 19:34 Hydralazine Inj 20 Mg/Ml Vial IV 07/25/24 19:18 10 mg Q6HR PRN Administration SBP > 170 Ceftriaxone Sodium/Dextrose 50 mls @ 100 mls/hr 06/26/24 11:55 06/27/24 08:16 Rocephin/D5w 1gm Iv Premix IV 07/03/24 11:54 100 mls/hr QDAY BUTCH Administration Vancomycin/Sodium Chloride 200 mls @ 120 mls/hr 06/27/24 10:00 06/27/24 10:25 Vancomycin/Ns 1 Gm Ivpb IV 07/04/24 09:59 120 mls/hr QDAY@1000 BUTCH Administration Ketorolac Tromethamine 15 mg 06/26/24 11:56 06/27/24 08:41 Ketorolac Inj 30 Mg/Ml Vial IVP 07/01/24 11:55 15 mg Q6HR PRN Administration PAIN SCALE 4-6 (Moderate Levothyroxine Sodium 50 mcg 06/26/24 06:00 06/27/24 05:45 Levothyroxine Sodium 25 Mcg Tablet PO 07/26/24 05:59 50 mcg ACBR BUTCH Administration Memantine 10 mg 06/26/24 21:00 06/27/24 08:16 Memantine Hcl 5 Mg Tablet PO 07/26/24 20:59 10 mg BID BUTCH Administration Metoprolol Tartrate 50 mg 06/26/24 09:00 06/27/24 08:15 Metoprolol Tartrate 25 Mg Tablet PO 07/26/24 08:59 50 mg BID BUTCH Administration Morphine Sulfate 6 mg 06/26/24 09:58 06/27/24 05:45 Morphine Sulf Inj 10 Mg/Ml Vial IVP 06/30/24 16:40 6 mg Q4H PRN Administration PAIN SCALE 7-10 (Severe Ondansetron HCl 4 mg 06/25/24 16:29 Ondansetron Inj 2 Mg/Ml Inj 2 Ml IV 07/25/24 16:28 Q6H PRN NAUSEA OR VOMITING Protocol Pantoprazole Sodium 40 mg 06/26/24 09:00 06/27/24 08:16 Pantoprazole 40 Mg Tablet PO 07/26/24 08:59 40 mg QDAY BUTCH Administration Pharmacy Consult 1 each 06/26/24 09:00 Vancomycin Pharmacy To Dose 1 Each Each IV 07/26/24 08:59 QDAY PRN RX Tamsulosin HCl 0.4 mg 06/26/24 13:15 06/27/24 08:16 Tamsulosin Hcl 0.4 Mg Capsule PO 07/26/24 13:14 0.4 mg QDAY BUTCH Administration Plan 84 y/o male patient with significant medical history for BPH, prostate cancer s/p prostatectomy, HLD, HTN, gout, hypothyroidism and chronic pain abdominal/flank pain. Patient admitted for sepsis and found to have Afib with RVR. #Atrial fibrillation with RVR likely secondary to #Sepsis #Hypertension Plan: - Currently patient sinus rhythm in 60's - Continue Metoprolol tartrate 50 mg BID - Continue Eliquis 5 mg BID - Echocardiogram showed 60-65% EF with trace AR and MR - Replete electrolytes as needed - Treat underlying GPC septicemia infections #Troponinemia type II, secondary to sepsis Trops peaked at 1.4 before downtrending Patient is not complaining of chest pain/pressure #GPC sepsis secondary to #Possible pyelonephritis #Pneumonia #GERD #BPH #ANTONINA #Chronic knee pain #Hypothyroidism -Management per primary team This patient care was discussed with my attending Dr. Beau De Anda MD PGY-2 Disclaimer: Minor errors in 3rd mate may be present since this note was dictated by speech recognition software.
[2024-06-28] VITALS (8 sets, daily range): BP systolic 115–136; BP diastolic 69–103; PULSE 54–93; RESP 16–31; TEMP 36.1–36.9; O2SAT 94–99; BMI 33.7; BMI 33.8
[2024-06-28] MEDS: LEVOTHYROXINE SODIUM 25 MCG TABLET 50 MCG PO (05:26)
[2024-06-28 06:21] LABS: Basophils % (Auto) 0 % (0-2.5); Eosinophils # (Auto) 0.1 Thou/mm3 (0.0-0.5); Eosinophils % (Auto) 2 % (0-10); Hematocrit 34.6 % (41.0-53.0); Hemoglobin 11.2 g/dL (13.5-16.0); Immature Granulocytes % (Auto) 0 % (0-0); Immature Granulocytes Auto 0.02 Thou/mm3 (0.00-0.00); Lymphocytes % (Auto) 19 % (10-50); Mean Corpuscular HGB Conc 32.4 g/dl (31.0-37.0); Mean Corpuscular Hemoglobin 27.5 pg (25.0-35.0); Mean Corpuscular Volume 85 fL (80-100); Monocytes # (Auto) 0.6 Thou/mm3 (0.0-0.8); Monocytes % (Auto) 11 % (0-12); Neutrophils # (Auto) 3.6 Thou/mm3 (1.8-7.7); Neutrophils % (Auto) 67 % (37-80); Nucleated Red Blood Cell % 0 /100 WBC (0); Platelet Count 109 Thou/mm3 (140-440); RDW Standard Deviation 44.3 fL (35.1-43.9); Red Blood Count 4.07 Miln/mm3 (4.50-5.90); White Blood Count 5.4 Thou/mm3 (3.8-10.6)
[2024-06-28 06:34] LABS: Partial Thromboplastin Time 35.8 Seconds (22.0-36.0); Prothrombin Time 10.9 Seconds (9.0-12.2)
[2024-06-28 06:55] LABS: Alanine Aminotransferase 12 U/L (10-49); Albumin, Serum 3.6 gm/dL (3.4-4.8); Albumin/Globulin Ratio 1.4 (1.2-2.2); Alkaline Phosphatase 78 U/L (46-116); Anion Gap 7 (7-16); Aspartate Amino Transferase 23 U/L (0-34); BUN/Creatinine Ratio 26 Ratio (12-20); Bilirubin,Total 0.6 mg/dL (0.3-1.2); Blood Urea Nitrogen 26 mg/dL (9-23); Calcium 8.5 mg/dL (8.3-10.6); Calcium (Corrected) 8.8 mg/dL (8.5-10.1); Carbon Dioxide 25.1 mMol/L (20.0-31.0); Chloride 104 mMol/L (98-107); Estimated Creatinine Clearance 62.9 mL/min (>60); Globulin 2.6 gm/dL (2.3-3.5); Glucose 121 mg/dL (74-106); Magnesium 2.3 mg/dL (1.6-2.6); Osmolality,Calculated 277 (275-295); Phosphorous 2.3 mg/dL (2.4-5.1); Potassium 3.6 mMol/L (3.4-5.1); Sodium 136 mMol/L (136-145); Total Protein 6.2 gm/dL (5.7-8.2); eGFR > 60 See Note
[2024-06-28] MEDS: MORPHINE SULF INJ 10 MG/ML VIAL 6 MG IVP (08:24)
[2024-06-28] MEDS: POTASSIUM CHLORIDE 20 mEq TABCR 40 MEQ PO (08:27)
[2024-06-28] MEDS: MEMANTINE HCL 5 MG TABLET 10 MG PO ×2 (08:28→20:36)
[2024-06-28] MEDS: PANTOPRAZOLE 40 MG TABLET PO (08:28)
[2024-06-28] MEDS: APIXABAN 2.5 MG TABLET 5 MG PO ×2 (08:28→20:36)
[2024-06-28] MEDS: DOCUSATE SOD 100 MG CAPSULE PO (08:28)
[2024-06-28] MEDS: NAPH,KPH MBDB 1 PACKET (1.5 GM) PO (08:28)
[2024-06-28] MEDS: TAMSULOSIN HCL 0.4 MG CAPSULE PO (08:29)
[2024-06-28] MEDS: METOPROLOL TARTRATE 25 MG TABLET 50 MG PO ×2 (08:29→20:36)
[2024-06-28] MEDS: ASPIRIN EC 81 MG TABEC PO (08:30)
[2024-06-28] MEDS: cefTRIAXone/D5w 1gm IV premix 50 ML IV (08:31)
--- NOTE | 2024-06-28 08:49 | PD.RESPRO ---
Documentation for date of: 06/28/24 ATTESTATION: I saw and examined the patient this morning, and I agree with current management stated by the resident. Will continue to monitor patient during their stay. Disclaimer: Despite multiple revisions, due to the dictation software being used, the document bellow may not be free of grammatical errors including phonetic/typographic errors. However, this does not deter from our commitment to providing health care in the patient's best interest in mind. Dr. Trevor Judge, PGY-3 Subjective Subjective Interval history: Patient seen today found awake, alert, orientedx3. Nurse reported patient coming in out of Atrial fibrillation but remained rate controlled. States still having some pain in abdomen. Vital signs stable at this time. Labs unremarkable at this time. Patient currently on Vancomycin and ceftriaxone for bacteremia, pneumonia and pyelonephritis. Afib currently rate controlled adequately with metoprolol and eliquis. Repeat blood cultures still pending. Exam Vital Signs Temp Pulse Resp BP Pulse Ox O2 Del Method O2 Flow Rate 97.9 F 93 24 H 125/82 97 Nasal Cannula 2 06/28/24 08:00 06/28/24 08:29 06/28/24 08:00 06/28/24 08:29 06/28/24 08:00 06/28/24 08:00 06/28/24 08:00 Narrative Exam Physical Exam GENERAL: NAD, AAOx3 HEENT: Moist mucosa. Eyes open, symmetrical, & clear CARDIO: Heart RRR, no obvious murmurs PULM: No noted coughing/dyspnea CTA B/L, no R/W/R GI: Abdomen soft, nondistended, pain on palpation more prominent in the bilateral lower quadrants-improving, positive left CVA-improving SKIN/MSK/EXT: No wounds/rashes/edema/amputations, no pain on palpation. Pedal pulses present B/L NEURO: AAOx3, no focal neuro deficits, able to move all 4 extremities Objective Labs 06/28/24 04:50 06/28/24 04:50 Labs: Laboratory Results - last 24 hr 06/28/24 04:50 WBC 5.4 RBC 4.07 L Hgb 11.2 L Hct 34.6 L MCV 85 MCH 27.5 MCHC 32.4 RDW Std Deviation 44.3 H Plt Count 109 L Neut % (Auto) 67 Lymph % (Auto) 19 [place] % (Auto) 11 Eos % (Auto) 2 Baso % (Auto) 0 Neut # (Auto) 3.6 Lymph # (Auto) 1.0 [place] # (Auto) 0.6 Eos # (Auto) 0.1 Baso # (Auto) 0.0 Immature Gran # (Auto) 0.02 H Absolute Nucleated RBC 0.00 Immature Gran % 0 Nucleated RBC % 0 PT 10.9 INR 1.0 APTT 35.8 D Sodium 136 Potassium 3.6 D Chloride 104 Carbon Dioxide 25.1 Anion Gap 7 BUN 26 H Creatinine 1.0 Estim Creat Clear Calc 62.9 eGFR > 60 BUN/Creatinine Ratio 26 H Glucose 121 H Calculated Osmolality 277 Calcium 8.5 Corrected Calcium 8.8 Phosphorus 2.3 L Magnesium 2.3 Total Bilirubin 0.6 D AST 23 ALT 12 Alkaline Phosphatase 78 Total Protein 6.2 Albumin 3.6 Globulin 2.6 Albumin/Globulin Ratio 1.4 Quality Measures Quality Measures sepsis Current suspected stage: sepsis Possible source: pulmonary Blood cultures ordered: completed in ED Antibiotic ordered: Yes Advance care planning discussed with:: patient Assessment & Plan Assessment Current Active Medications: Generic Name Dose Route Start Last Admin Trade Name Freq PRN Reason Stop Dose Admin Acetaminophen 650 mg 06/25/24 16:29 06/25/24 18:39 Acetaminophen 325 Mg Tablet PO 07/25/24 16:28 650 mg Q6H PRN Administration Fever >100.5 Acetaminophen 650 mg 06/25/24 16:29 Acetaminophen 325 Mg Tablet PO 07/25/24 16:28 Q6H PRN PAIN SCALE 1-3 (mild Apixaban 5 mg 06/27/24 09:00 06/28/24 08:28 Apixaban 2.5 Mg Tablet PO 07/27/24 08:59 5 mg BID BUTCH Administration Aspirin 81 mg 06/26/24 15:45 06/28/24 08:30 Aspirin Ec 81 Mg Tabec PO 07/26/24 15:44 81 mg QDAY BUTCH Administration Docusate Sodium 100 mg 06/25/24 16:30 06/28/24 08:28 Docusate Sod 100 Mg Capsule PO 07/25/24 16:29 100 mg QDAY BUTCH Administration Protocol Hydralazine HCl 10 mg 06/25/24 19:19 06/25/24 19:34 Hydralazine Inj 20 Mg/Ml Vial IV 07/25/24 19:18 10 mg Q6HR PRN Administration SBP > 170 Ceftriaxone Sodium/Dextrose 50 mls @ 100 mls/hr 06/26/24 11:55 06/28/24 08:31 Rocephin/D5w 1gm Iv Premix IV 07/03/24 11:54 100 mls/hr QDAY BUTCH Administration Vancomycin/Sodium Chloride 200 mls @ 120 mls/hr 06/27/24 10:00 06/27/24 10:25 Vancomycin/Ns 1 Gm Ivpb IV 07/04/24 09:59 120 mls/hr QDAY@1000 BUTCH Administration Ketorolac Tromethamine 15 mg 06/26/24 11:56 06/27/24 23:09 Ketorolac Inj 30 Mg/Ml Vial IVP 07/01/24 11:55 15 mg Q6HR PRN Administration PAIN SCALE 4-6 (Moderate Levothyroxine Sodium 50 mcg 06/26/24 06:00 06/28/24 05:26 Levothyroxine Sodium 25 Mcg Tablet PO 07/26/24 05:59 50 mcg ACBR BUTCH Administration Memantine 10 mg 06/26/24 21:00 06/28/24 08:28 Memantine Hcl 5 Mg Tablet PO 07/26/24 20:59 10 mg BID BUTCH Administration Metoprolol Tartrate 50 mg 06/26/24 09:00 06/28/24 08:29 Metoprolol Tartrate 25 Mg Tablet PO 07/26/24 08:59 50 mg BID BUTCH Administration Morphine Sulfate 6 mg 06/26/24 09:58 06/28/24 08:24 Morphine Sulf Inj 10 Mg/Ml Vial IVP 06/30/24 16:40 6 mg Q4H PRN Administration PAIN SCALE 7-10 (Severe Ondansetron HCl 4 mg 06/25/24 16:29 Ondansetron Inj 2 Mg/Ml Inj 2 Ml IV 07/25/24 16:28 Q6H PRN NAUSEA OR VOMITING Protocol Pantoprazole Sodium 40 mg 06/26/24 09:00 06/28/24 08:28 Pantoprazole 40 Mg Tablet PO 07/26/24 08:59 40 mg QDAY BUTCH Administration Pharmacy Consult 1 each 06/26/24 09:00 Vancomycin Pharmacy To Dose 1 Each Each IV 07/26/24 08:59 QDAY PRN RX Tamsulosin HCl 0.4 mg 06/26/24 13:15 06/28/24 08:29 Tamsulosin Hcl 0.4 Mg Capsule PO 07/26/24 13:14 0.4 mg QDAY BUTCH Administration Plan 84-year-old male with past medical history of hypertension, hyperlipidemia, hypothyroidism, BPH, prostate cancer s/p prostatectomy, gout, chronic knee pain on [place] presented to the ED due to abdominal pain. Admitted for sepsis secondary to left pyelonephritis. #Sepsis secondary to #Pyelonephritis #Right-sided pneumonia #GPC bacteremia Patient presented today with lower abdominal pain radiating to the flanks On physical exam with left-sided CVA tenderness positive On admission had SIRS 2 out of 4, tachycardia, febrile with source pyelonephritis and endorgan damage acute kidney injury and hyperbilirubinemia Abdomen/pelvis CT: Left perinephric fat stranding and CXR: Early right base pneumonia Pro-Hilario 1.23, In the ED received 2 L of IV fluids + 1L on admission Lactic acid normalized Flu negative, COVID negative, urine cx negative Blood cultures grew GPCs 2x bottles Blood cultures negative in 24 hours -on ceftriaxone -on IV Vancomycin -ID consulted, appreciate recommendations #NSTEMI type 2 #Paroxysmal Atrial fibrillation likely type 2 in the setting of sepsis troponins on admission 0.033 now uptrended to 1.4 EKGs were done shows some ST depressions Afib reported in and out of afib on telemetry 06/25/2024 currently on sinus rhythm Echo showed EF 60-65% mild dilation of ascending aorita, mild dilation of aortic root - on Eliquis 5mg BID - Aspirin 81mg - Metoprolol 50mg BID - Cardiology, Dr. Yanez consulted, appreciate recommendations #ANTONINA- improving Baseline creatinine seems to be 0.9-1.1 Current creatinine 1.6 In the ED received 2 L of IVF's + 1LNS -500ml bolus NS ordered -Renally dose medications -Avoid nephrotoxic meds -Monitor CMP #Hypertensive urgency- resolved Likely in the setting of pain Will hold resuming losartan in view of soft BP - Metoprolol 50mg BID #Elevated T. bili-resolved Likely in the setting of sepsis -Will monitor at this time #Chronic pain Patient had history of bilateral knee surgeries takes chronic [place] -restarted home norco -morphine prn #BPH #Prostate cancer status post prostatectomy -Resumed Flomax as taken at home #Hypothyroidism TSH elevated, free T4 nl, likely subclinical hypothyroidism -Resume levothyroxine 50 mcg p.o. daily #GERD -Resumed home pantoprazole Case discussed with my senior Dr. Judge and my attending Dr. Subha Carvalho MD PGY-1 Disposition: Telemetry Fluids: none Feeding: Cardiac Thrombo prophylaxis: Eliquis Gastric Ulcer prophylaxis: Pantoprazole CODE STATUS: Full code Attending Provider Attestation/Addendum I have examined the patient, reviewed labs and imaging findings, discussed the case with the resident(s), and reviewed entered orders. I agree with the plan of care as outlined in this note, with these additional summaries/recommendations: Patient is a 84-year-old male with a medical history of chronic back pain, BPH, prostate cancer, status post TURP, neuropathy, hypothyroidism, primary hypertension, and hyperlipidemia who presents to [facility] emergency department on 06/25/2024 with chief complaints of lower abdominal pain, left flank pain, and fevers that started last night. Patient was diagnosed with sepsis and hospitalist team consulted for continuation of care. #Sepsis #Pyelonephritis # Bacteremia SIRS: 2 out of 4 SIRS criteria met (body temp >38C, HR >90) qSOFA: 0 points indicating low risk of mortality from sepsis Presented with flank pain, fever/chills, and possible urinary symptoms Labs notable for WBC 9.7 (baseline in 5 range), Pro-Hilario 1.23, and endorgan damage with ANTONINA and hyperbilirubinemia Abdomen/pelvis CT: Left perinephric fat stranding and CXR: Early right base pneumonia Meets criteria for sepsis. Most likely source is pyelonephritis versus less likely pneumonia versus less likely viral infection Antibiotics: Continue IV Rocephin and vancomycin Fluids: Received 1.5 L fluids in ED. Will give additional 1.5 L to meet sepsis 30 cc/kg protocol No need for pressors or source control at this time Tylenol as needed for fever Plan: Continue IV abx, blood cxs preliminary showing GPC 2 out of 2. Repeat blood cultures ordered and infectious disease consulted. Urine culture interestingly showed no growth although patient received antibiotics prior to urine culture so may not be reliable. Repeat hematology panel in AM # New onset atrial fibrillation Most likely secondary to severe underlying sepsis Echocardiogram shows EF 60 to 65% with mildly dilated ascending aorta Cardiology following Plan: Heart rate now much improved. Continue metoprolol for rate control and Eliquis for elevated [id number] score #Chronic Pain: Continue home [place] 7.5?3 25 twice daily as needed # GERD: Continue home pantoprazole # Hypothyroidism: Continue home levothyroxine 50 mcg p.o. daily # BPH/prostate cancer: Continue Flomax. Outpatient follow-up. # Primary hypertension: home antihypertensives as tolerated Dr. Mascorro
[2024-06-28] MEDS: VANCOMYCIN/NS 1 GM IVPB 200 ML IV (10:28)
[2024-06-28] MEDS: HYDROcodone/APAP 7.5/325 TABLET 1 TAB PO ×2 (10:29→22:31)
[2024-06-28] MEDS: bisacodyL 5 MG TABEC PO (10:29)
--- NOTE | 2024-06-28 12:13 | PC.PT ---
Attempted PT eval. Pt initially open to participating, however reported increased abdominal discomfort with initial attempt to sit up. Pt laid down and requested to try again tomorrow.
--- NOTE | 2024-06-28 13:01 | PC.SS ---
[place] [employer] informed bedside nurse of request for room air evaluation to confirm patient's need for home oxygen. Patient currently on 2L nasal cannula.
--- NOTE | 2024-06-28 13:02 | PC.SS ---
MEDIA CONSULTANT confirmed with patient no home oxygen use prior to admission. MEDIA CONSULTANT confirmed patient's physical address. POC is daughter, Nelida Gaona, .
--- NOTE | 2024-06-28 13:57 | ESPR_ITS ---
<Statement entered by Lolis Yanez MD - 07/01/24 10:12> The patient is examined by me personally along with resident physician PGY [address] Dr[address] Middleton patient is doing better but remains having episodes of intermittent atrial fibrillation rate controlled also has infection possible pyelonephritis being investigated receiving IV antibiotics. Rate controlled well for now agree with the treatment plan recommendation as formulated by Dr. Middleton will continue to follow the patient from cardiology point of view Documentation for date of: 06/28/24 Subjective Subjective Interval history: 84 y/o male patient with significant medical history for BPH, prostate cancer s/p prostatectomy, HLD, HTN, gout, hypothyroidism and chronic pain abdominal/flank pain. Patient also endorsing dysuria and nausea. Patient denied fever, chills, chest pain/pressure, cough, diarrhea, constipation or other associated symptoms. Labs were significant for leukocytosis, mild T bili elevation and ANTONINA. Chest x-ray showed right basilar pneumonia while abdomen/pelvis CT showed atrophic right kidney and left perinephric stranding. Patient was initially admitted for sepsis but he was also noted to have in-out episodes of atrial fibrillation with RVR thus cardiology was consulted. 06/26/24: Troponin downtrended, patient sinus rhythm with rate in 60's. Latest echocardiogram in clinic showed normal EF with trace MR and AR. We recommend continuing Metoprolol tartrate 50 mg BID and transitioning patient to p.o. Eliquis 5 mg BID. 06/27/24: Patient has been in sinus rhythm. WBC downtrending, patient states there is mild improvement in pain. He is still endorsing left lower quadrant and back pain. 2/2 blood cultures grew GPC, infectious disease has been consulted, patient currently on Rocephin and Vanc. Continue with metoprolol tartrate and eliquis. 06/28/24: Patient continues to have intermittent episodes of atrial fibrillation but rate is controlled. Second sets of blood culture has been negative growth at 24 hours. Patient pending ID consultation. Blood pressure has been stable, continue current regimen of Metroprolol tartrate 50 twice daily and Eliquis 5 mg twice daily. Exam Vital Signs Temp Pulse Resp BP Pulse Ox O2 Del Method O2 Flow Rate 97.9 F 72 23 H 119/76 98 Nasal Cannula 2 06/28/24 12:06/28/24 12:06/28/24 12:00 06/28/24 12:00 06/28/24 12:00 06/28/24 12:00 06/28/24 12:00 Narrative Exam Constitutional: well-developed, well-nourished, in mild distress, lying in bed HEENT: NCAT, EOMI, reactive round pupils b/l, patent nares b/l, moist mucous membranes Lung: CTAB, no wheezing, no rhonchi Heart: Regular S1S2, no murmurs, gallops, or rubs Abdomen: Soft, non-distended, positive lower quadrant pain on palpation, positive left CVA tenderness, bowel sounds present throughout Extremities: No cyanosis, clubbing, or edema, LE pulses present b/l Neurologic: No focal sensory or motor deficits noted, AOx3, appropriate affect Skin: Warm, dry, no lesions or rashes noted Objective Labs 06/28/24 04:50 06/28/24 04:50 Labs: Laboratory Results - last 24 hr 06/28/24 04:50 WBC 5.4 RBC 4.07 L Hgb 11.2 L Hct 34.6 L MCV 85 MCH 27.5 MCHC 32.4 RDW Std Deviation 44.3 H Plt Count 109 L Neut % (Auto) 67 Lymph % (Auto) 19 [place] % (Auto) 11 Eos % (Auto) 2 Baso % (Auto) 0 Neut # (Auto) 3.6 Lymph # (Auto) 1.0 [place] # (Auto) 0.6 Eos # (Auto) 0.1 Baso # (Auto) 0.0 Immature Gran # (Auto) 0.02 H Absolute Nucleated RBC 0.00 Immature Gran % 0 Nucleated RBC % 0 PT 10.9 INR 1.0 APTT 35.8 D Sodium 136 Potassium 3.6 D Chloride 104 Carbon Dioxide 25.1 Anion Gap 7 BUN 26 H Creatinine 1.0 Estim Creat Clear Calc 62.9 eGFR > 60 BUN/Creatinine Ratio 26 H Glucose 121 H Calculated Osmolality 277 Calcium 8.5 Corrected Calcium 8.8 Phosphorus 2.3 L Magnesium 2.3 Total Bilirubin 0.6 D AST 23 ALT 12 Alkaline Phosphatase 78 Total Protein 6.2 Albumin 3.6 Globulin 2.6 Albumin/Globulin Ratio 1.4 Quality Measures Quality Measures sepsis Current suspected stage: sepsis Possible source: pulmonary Blood cultures ordered: completed in ED Antibiotic ordered: Yes Advance care planning discussed with:: other Assessment & Plan Assessment Current Active Medications: Generic Name Dose Route Start Last Admin Trade Name Freq PRN Reason Stop Dose Admin Acetaminophen 650 mg 06/25/24 16:29 06/25/24 18:39 Acetaminophen 325 Mg Tablet PO 07/25/24 16:28 650 mg Q6H PRN Administration Fever >100.5 Acetaminophen 650 mg 06/25/24 16:29 Acetaminophen 325 Mg Tablet PO 07/25/24 16:28 Q6H PRN PAIN SCALE 1-3 (mild Hydrocodone Bitart/Acetaminophen 1 tab 06/28/24 09:54 06/28/24 10:29 Hydrocodone/Apap 7.5/325 Tablet PO 07/03/24 09:44 1 tab BID PRN Administration PAIN (CHRONIC) Apixaban 5 mg 06/27/24 09:00 06/28/24 08:28 Apixaban 2.5 Mg Tablet PO 07/27/24 08:59 5 mg BID BUTCH Administration Aspirin 81 mg 06/26/24 15:45 06/28/24 08:30 Aspirin Ec 81 Mg Tabec PO 07/26/24 15:44 81 mg QDAY BUTCH Administration Docusate Sodium 100 mg 06/25/24 16:30 06/28/24 08:28 Docusate Sod 100 Mg Capsule PO 07/25/24 16:29 100 mg QDAY BUTCH Administration Protocol Ceftriaxone Sodium/Dextrose 50 mls @ 100 mls/hr 06/26/24 11:55 06/28/24 09:01 Rocephin/D5w 1gm Iv Premix IV 07/03/24 11:54 Infused QDAY BUTCH Infusion Vancomycin/Sodium Chloride 200 mls @ 120 mls/hr 06/27/24 10:00 06/28/24 10:28 Vancomycin/Ns 1 Gm Ivpb IV 07/04/24 09:59 120 mls/hr QDAY@1000 BUTCH Administration Levothyroxine Sodium 50 mcg 06/26/24 06:00 06/28/24 05:26 Levothyroxine Sodium 25 Mcg Tablet PO 07/26/24 05:59 50 mcg ACBR BUTCH Administration Lidocaine 1 patch 06/28/24 13:03 Lidocaine 5% 1 Patch TOP 07/28/24 13:02 UD PRN PAIN Memantine 10 mg 06/26/24 21:00 06/28/24 08:28 Memantine Hcl 5 Mg Tablet PO 07/26/24 20:59 10 mg BID BUTCH Administration Metoprolol Tartrate 50 mg 06/26/24 09:00 06/28/24 08:29 Metoprolol Tartrate 25 Mg Tablet PO 07/26/24 08:59 50 mg BID BUTCH Administration Morphine Sulfate 4 mg 06/28/24 09:42 Morphine Sulf Inj 10 Mg/Ml Vial IVP 06/30/24 16:40 Q4H PRN PAIN SCALE 7-10 (Severe Ondansetron HCl 4 mg 06/25/24 16:29 Ondansetron Inj 2 Mg/Ml Inj 2 Ml IV 07/25/24 16:28 Q6H PRN NAUSEA OR VOMITING Protocol Pantoprazole Sodium 40 mg 06/26/24 09:00 06/28/24 08:28 Pantoprazole 40 Mg Tablet PO 07/26/24 08:59 40 mg QDAY BUTCH Administration Pharmacy Consult 1 each 06/26/24 09:00 Vancomycin Pharmacy To Dose 1 Each Each IV 07/26/24 08:59 QDAY PRN RX Tamsulosin HCl 0.4 mg 06/26/24 13:15 06/28/24 08:29 Tamsulosin Hcl 0.4 Mg Capsule PO 07/26/24 13:14 0.4 mg QDAY BUTCH Administration Plan 84 y/o male patient with significant medical history for BPH, prostate cancer s/p prostatectomy, HLD, HTN, gout, hypothyroidism and chronic pain abdominal/flank pain. Patient admitted for sepsis and found to have Afib with RVR. #Atrial fibrillation with RVR likely secondary to #Sepsis #Hypertension Plan: - Continue Metoprolol tartrate 50 mg BID - Continue Eliquis 5 mg BID - Echocardiogram showed 60-65% EF with trace AR and MR - Replete electrolytes as needed - Treat underlying GPC septicemia infections #Troponinemia type II, secondary to sepsis Trops peaked at 1.4 before downtrending Patient is not complaining of chest pain/pressure #GPC sepsis secondary to #Possible pyelonephritis #Pneumonia #GERD #BPH #ANTONINA #Chronic knee pain #Hypothyroidism -Management per primary team This patient care was discussed with my attending Dr. Beau De Anda MD PGY-2 Disclaimer: Minor errors in voice engineer may be present since this note was dictated by speech recognition software.
[2024-06-28] MEDS: LIDOCAINE 5% 1 PATCH TOP (14:09)
--- NOTE | 2024-06-28 14:24 | PC.SS ---
Update: Awaiting final cultures for discharge. Plan is for patient to d/c home.
[2024-06-28] MEDS: MORPHINE SULF INJ 10 MG/ML VIAL 4 MG IVP ×2 (16:11→20:35)
[2024-06-29] VITALS (11 sets, daily range): BP systolic 106–152; BP diastolic 69–100; PULSE 68–108; RESP 12–31; TEMP 36.1–36.8; O2SAT 93–99; BMI 33.8
--- NOTE | 2024-06-29 00:25 | PC.NURSE ---
Patient does not want to be turned. He states that it worsens his pain with any slight movement. Daughter is aware of this
[2024-06-29] MEDS: MORPHINE SULF INJ 10 MG/ML VIAL 4 MG IVP ×3 (00:39→16:42)
--- NOTE | 2024-06-29 04:53 | PC.NURSE ---
MD Solomon is aware that pt has been running afib all night but HR is controlled. She said no EKGs needed
[2024-06-29] MEDS: LEVOTHYROXINE SODIUM 25 MCG TABLET 50 MCG PO (05:12)
[2024-06-29 06:40] LABS: Basophils % (Auto) 0 % (0-2.5); Eosinophils # (Auto) 0.1 Thou/mm3 (0.0-0.5); Eosinophils % (Auto) 1 % (0-10); Hematocrit 35.4 % (41.0-53.0); Hemoglobin 11.7 g/dL (13.5-16.0); Immature Granulocytes % (Auto) 0 % (0-0); Immature Granulocytes Auto 0.01 Thou/mm3 (0.00-0.00); Lymphocytes # (Auto) 1.2 Thou/mm3 (1.0-4.8); Lymphocytes % (Auto) 22 % (10-50); Mean Corpuscular HGB Conc 33.1 g/dl (31.0-37.0); Mean Corpuscular Hemoglobin 27.5 pg (25.0-35.0); Mean Corpuscular Volume 83 fL (80-100); Monocytes # (Auto) 0.7 Thou/mm3 (0.0-0.8); Monocytes % (Auto) 13 % (0-12); Neutrophils # (Auto) 3.6 Thou/mm3 (1.8-7.7); Neutrophils % (Auto) 64 % (37-80); Nucleated Red Blood Cell % 0 /100 WBC (0); Platelet Count 143 Thou/mm3 (140-440); RDW Standard Deviation 42.4 fL (35.1-43.9); Red Blood Count 4.25 Miln/mm3 (4.50-5.90); White Blood Count 5.6 Thou/mm3 (3.8-10.6)
[2024-06-29 06:48] LABS: Alanine Aminotransferase 39 U/L (10-49); Albumin, Serum 3.8 gm/dL (3.4-4.8); Albumin/Globulin Ratio 1.5 (1.2-2.2); Alkaline Phosphatase 100 U/L (46-116); Anion Gap 6 (7-16); Aspartate Amino Transferase 43 U/L (0-34); BUN/Creatinine Ratio 20 Ratio (12-20); Bilirubin,Total 0.8 mg/dL (0.3-1.2); Blood Urea Nitrogen 18 mg/dL (9-23); Calcium 8.9 mg/dL (8.3-10.6); Calcium (Corrected) 9.1 mg/dL (8.5-10.1); Carbon Dioxide 26.7 mMol/L (20.0-31.0); Chloride 103 mMol/L (98-107); Creatinine (Component) 0.9 mg/dL (0.6-1.3); Estimated Creatinine Clearance 68.8 mL/min (>60); Globulin 2.6 gm/dL (2.3-3.5); Glucose 112 mg/dL (74-106); Osmolality,Calculated 274 (275-295); Phosphorous 3.5 mg/dL (2.4-5.1); Potassium 4.3 mMol/L (3.4-5.1); Sodium 136 mMol/L (136-145); Total Protein 6.4 gm/dL (5.7-8.2); eGFR > 60 See Note
[2024-06-29] MEDS: cefTRIAXone/D5w 1gm IV premix 50 ML IV (08:20)
[2024-06-29] MEDS: APIXABAN 2.5 MG TABLET 5 MG PO ×2 (08:21→21:39)
[2024-06-29] MEDS: DOCUSATE SOD 100 MG CAPSULE PO (08:21)
[2024-06-29] MEDS: MEMANTINE HCL 5 MG TABLET 10 MG PO ×2 (08:21→21:39)
[2024-06-29] MEDS: METOPROLOL TARTRATE 25 MG TABLET 50 MG PO ×2 (08:21→21:38)
[2024-06-29] MEDS: TAMSULOSIN HCL 0.4 MG CAPSULE PO (08:23)
[2024-06-29] MEDS: PANTOPRAZOLE 40 MG TABLET PO (08:23)
[2024-06-29] MEDS: ASPIRIN EC 81 MG TABEC PO (08:23)
[2024-06-29] MEDS: HYDROcodone/APAP 7.5/325 TABLET 1 TAB PO ×2 (08:23→22:23)
[2024-06-29] MEDS: ONDANSETRON INJ 2 MG/ML INJ 2 ML 4 MG IV (09:55)
[2024-06-29 10:01] LABS: Vancomycin,Trough 6.9 mcg/mL (5.0-10.0)
[2024-06-29] MEDS: VANCOMYCIN/NS 1 GM IVPB 200 ML IV ×2 (12:10→21:39)
--- NOTE | 2024-06-29 12:54 | PC.SS ---
PASRR assessment initiated and Level II Mental Health Evaluation referral is required.
--- NOTE | 2024-06-29 13:04 | PD.RESPRO ---
Documentation for date of: 06/29/24 ATTESTATION: I saw and examined the patient this morning, and I agree with current management stated by the resident. Will continue to monitor patient during their stay. Disclaimer: Despite multiple revisions, due to the dictation software being used, the document bellow may not be free of grammatical errors including phonetic/typographic errors. However, this does not deter from our commitment to providing health care in the patient's best interest in mind. Dr. Trevor Judge, PGY-3 Subjective Subjective Interval history: Patient seen today at the bedside found awake, alert, orientedx3. No overnight events reported. Still complaining of some abdominal pain, resumed patients home amitryptiline, and gabapentin, and now has adequate pain control. Patient also had stated some constipation enemas was given and was able to have a bowel movement, added moventik. At this time will continue current management with Ceftriaxone and Vancomycin. ID recommendations pending, Blood cultures from 06/25 missing ID and sensitivity will follow up in the am. Exam Vital Signs Temp Pulse Resp BP Pulse Ox O2 Del Method O2 Flow Rate 98.3 F 95 23 H 128/88 H 93 L Nasal Cannula 2 06/29/24 08:00 06/29/24 12:00 06/29/24 11:23 06/29/24 08:21 06/29/24 11:23 06/29/24 08:00 06/29/24 11:23 Narrative Exam Physical Exam GENERAL: NAD, AAOx3 HEENT: Moist mucosa. Eyes open, symmetrical, & clear CARDIO: Heart RRR, no obvious murmurs PULM: No noted coughing/dyspnea CTA B/L, no R/W/R GI: Abdomen soft, nondistended, pain on palpation more prominent in the bilateral lower quadrants-improving, positive left CVA-improving SKIN/MSK/EXT: No wounds/rashes/edema/amputations, no pain on palpation. Pedal pulses present B/L NEURO: AAOx3, no focal neuro deficits, able to move all 4 extremities Objective Labs 06/29/24 04:50 06/30/24 04:25 Labs: Laboratory Results - last 24 hr 06/29/24 06/29/24 04:50 09:03 WBC 5.6 RBC 4.25 L Hgb 11.7 L Hct 35.4 L MCV 83 MCH 27.5 MCHC 33.1 RDW Std Deviation 42.4 Plt Count 143 D Neut % (Auto) 64 Lymph % (Auto) 22 [place] % (Auto) 13 H Eos % (Auto) 1 Baso % (Auto) 0 Neut # (Auto) 3.6 Lymph # (Auto) 1.2 [place] # (Auto) 0.7 Eos # (Auto) 0.1 Baso # (Auto) 0.0 Immature Gran # (Auto) 0.01 H Absolute Nucleated RBC 0.00 Immature Gran % 0 Nucleated RBC % 0 Sodium 136 Potassium 4.3 D Chloride 103 Carbon Dioxide 26.7 Anion Gap 6 L BUN 18 Creatinine 0.9 Estim Creat Clear Calc 68.8 eGFR > 60 BUN/Creatinine Ratio 20 Glucose 112 H Calculated Osmolality 274 L Calcium 8.9 Corrected Calcium 9.1 Phosphorus 3.5 Magnesium 2.0 Total Bilirubin 0.8 AST 43 H ALT 39 Alkaline Phosphatase 100 D Total Protein 6.4 Albumin 3.8 Globulin 2.6 Albumin/Globulin Ratio 1.5 Vancomycin Trough 6.9 Quality Measures Quality Measures sepsis Current suspected stage: sepsis Possible source: pulmonary Blood cultures ordered: completed in ED Antibiotic ordered: Yes Advance care planning discussed with:: patient and child Assessment & Plan Assessment Current Active Medications: Generic Name Dose Route Start Last Admin Trade Name Freq PRN Reason Stop Dose Admin Acetaminophen 650 mg 06/25/24 16:29 06/25/24 18:39 Acetaminophen 325 Mg Tablet PO 07/25/24 16:28 650 mg Q6H PRN Administration Fever >100.5 Acetaminophen 650 mg 06/25/24 16:29 Acetaminophen 325 Mg Tablet PO 07/25/24 16:28 Q6H PRN PAIN SCALE 1-3 (mild Hydrocodone Bitart/Acetaminophen 1 tab 06/28/24 09:54 06/29/24 08:23 Hydrocodone/Apap 7.5/325 Tablet PO 07/03/24 09:44 1 tab BID PRN Administration PAIN (CHRONIC) Protocol Amitriptyline HCl 25 mg 06/29/24 21:00 Amitriptyline Hcl 25 Mg Tablet PO 07/29/24 20:59 HS BUTCH Apixaban 5 mg 06/27/24 09:00 06/29/24 08:21 Apixaban 2.5 Mg Tablet PO 07/27/24 08:59 5 mg BID BUTCH Administration Aspirin 81 mg 06/26/24 15:45 06/29/24 08:23 Aspirin Ec 81 Mg Tabec PO 07/26/24 15:44 81 mg QDAY BUTCH Administration Docusate Sodium 100 mg 06/25/24 16:30 06/29/24 08:21 Docusate Sod 100 Mg Capsule PO 07/25/24 16:29 100 mg QDAY BUTCH Administration Protocol Gabapentin 300 mg 06/29/24 09:15 06/29/24 11:01 Gabapentin 300 Mg Capsule PO 07/29/24 09:14 Not Given TID BUTCH Ceftriaxone Sodium/Dextrose 50 mls @ 100 mls/hr 06/26/24 11:55 06/29/24 08:20 Rocephin/D5w 1gm Iv Premix IV 07/03/24 11:54 100 mls/hr QDAY BUTCH Administration Vancomycin/Sodium Chloride 200 mls @ 120 mls/hr 06/29/24 10:45 06/29/24 12:10 Vancomycin/Ns 1 Gm Ivpb IV 07/06/24 10:44 120 mls/hr BID@1000,2200 BUTCH Administration Protocol Levothyroxine Sodium 50 mcg 06/26/24 06:00 06/29/24 05:12 Levothyroxine Sodium 25 Mcg Tablet PO 07/26/24 05:59 50 mcg ACBR BUCTH Administration Lidocaine 1 patch 06/28/24 13:03 06/28/24 14:09 Lidocaine 5% 1 Patch TOP 07/28/24 13:02 1 patch UD PRN Administration PAIN Memantine 10 mg 06/26/24 21:00 06/29/24 08:21 Memantine Hcl 5 Mg Tablet PO 07/26/24 20:59 10 mg BID BUTCH Administration Metoprolol Tartrate 50 mg 06/26/24 09:00 06/29/24 08:21 Metoprolol Tartrate 25 Mg Tablet PO 07/26/24 08:59 50 mg BID BUTCH Administration Morphine Sulfate 4 mg 06/28/24 09:42 06/29/24 09:55 Morphine Sulf Inj 10 Mg/Ml Vial IVP 06/30/24 16:40 4 mg Q4H PRN Administration PAIN SCALE 7-10 (Severe Naloxegol 25 mg 06/29/24 09:15 06/29/24 11:02 Naloxegol Oxalate 25 Mg Tablet (Non-Formulary) PO 07/29/24 09:14 Not Given QDAY [facility] Ondansetron HCl 4 mg 06/25/24 16:29 06/29/24 09:55 Ondansetron Inj 2 Mg/Ml Inj 2 Ml IV 07/25/24 16:28 4 mg Q6H PRN Administration NAUSEA OR VOMITING Protocol Pantoprazole Sodium 40 mg 06/26/24 09:00 06/29/24 08:23 Pantoprazole 40 Mg Tablet PO 07/26/24 08:59 40 mg QDAY BUTCH Administration Pharmacy Consult 1 each 06/26/24 09:00 Vancomycin Pharmacy To Dose 1 Each Each IV 07/26/24 08:59 QDAY PRN RX Tamsulosin HCl 0.4 mg 06/26/24 13:15 06/29/24 08:23 Tamsulosin Hcl 0.4 Mg Capsule PO 07/26/24 13:14 0.4 mg QDAY BUTCH Administration Plan 84-year-old male with past medical history of hypertension, hyperlipidemia, hypothyroidism, BPH, prostate cancer s/p prostatectomy, gout, chronic knee pain on [place] presented to the ED due to abdominal pain. Admitted for sepsis secondary to left pyelonephritis. #Sepsis secondary to #Pyelonephritis #Right-sided pneumonia #GPC bacteremia Patient presented today with lower abdominal pain radiating to the flanks On physical exam with left-sided CVA tenderness positive On admission had SIRS 2 out of 4, tachycardia, febrile with source pyelonephritis and endorgan damage acute kidney injury and hyperbilirubinemia Abdomen/pelvis CT: Left perinephric fat stranding and CXR: Early right base pneumonia Pro-Hilario 1.23, In the ED received 2 L of IV fluids + 1L on admission Lactic acid normalized Flu negative, COVID negative, urine cx negative Blood cultures grew GPCs 2x bottles Blood cultures negative in 48 hours -on ceftriaxone -on IV Vancomycin -ID consulted, appreciate recommendations #NSTEMI type 2 #Paroxysmal Atrial fibrillation likely type 2 in the setting of sepsis troponins on admission 0.033 now uptrended to 1.4 EKGs were done shows some ST depressions Afib reported in and out of afib on telemetry 06/25/2024 currently on sinus rhythm Echo showed EF 60-65% mild dilation of ascending aorita, mild dilation of aortic root - on Eliquis 5mg BID - Aspirin 81mg - Metoprolol 50mg BID - Cardiology, Dr. Yanez consulted, appreciate recommendations #ANTONINA- resolved Baseline creatinine seems to be 0.9-1.1 Current creatinine 0.9 In the ED received 2 L of IVF's + 1LNS -500ml bolus NS ordered -Renally dose medications -Avoid nephrotoxic meds -Monitor CMP #Hypertensive urgency- resolved Likely in the setting of pain Will hold resuming losartan in view of soft BP - Metoprolol 50mg BID #Constipation patient uses chronic pain medications including opioids has not had a bowel movement since wednesday -added enema -continue bowel regimen -added moventik #Elevated T. bili-resolved Likely in the setting of sepsis -Will monitor at this time #Chronic pain Patient had history of bilateral knee surgeries takes chronic [place] -restarted home norco - resumed patients home amitryptiline, gabapentin -morphine prn #BPH #Prostate cancer status post prostatectomy -Resumed Flomax as taken at home #Hypothyroidism TSH elevated, free T4 nl, likely subclinical hypothyroidism -Resume levothyroxine 50 mcg p.o. daily #GERD -Resumed home pantoprazole Case discussed with my senior Dr. Judge and my attending Dr. Subha Carvalho MD PGY-1 Disposition: Telemetry Fluids: none Feeding: Cardiac Thrombo prophylaxis: Eliquis Gastric Ulcer prophylaxis: Pantoprazole CODE STATUS: Full code Attending Provider Attestation/Addendum I have examined the patient, reviewed labs and imaging findings, discussed the case with the resident(s), and reviewed entered orders. I agree with the plan of care as outlined in this note, with these additional summaries/recommendations: Patient is a 84-year-old male with a medical history of chronic back pain, BPH, prostate cancer, status post TURP, neuropathy, hypothyroidism, primary hypertension, and hyperlipidemia who presents to [facility] emergency department on 06/25/2024 with chief complaints of lower abdominal pain, left flank pain, and fevers that started last night. Patient was diagnosed with sepsis and hospitalist team consulted for continuation of care. #Sepsis #Pyelonephritis # Bacteremia SIRS: 2 out of 4 SIRS criteria met (body temp >38C, HR >90) qSOFA: 0 points indicating low risk of mortality from sepsis Presented with flank pain, fever/chills, and possible urinary symptoms Labs notable for WBC 9.7 (baseline in 5 range), Pro-Hilario 1.23, and endorgan damage with ANTONINA and hyperbilirubinemia Abdomen/pelvis CT: Left perinephric fat stranding and CXR: Early right base pneumonia Meets criteria for sepsis. Most likely source is pyelonephritis versus less likely pneumonia versus less likely viral infection Antibiotics: Continue IV Rocephin and vancomycin Fluids: Received 1.5 L fluids in ED. Will give additional 1.5 L to meet sepsis 30 cc/kg protocol No need for pressors or source control at this time Tylenol as needed for fever Plan: Continue IV abx, blood cxs preliminary showing GPC 2 out of 2 although still awaiting speciation and discussed with in-house lab we will follow-up results when available. Repeat blood cultures ordered and infectious disease consulted. Urine culture interestingly showed no growth although patient received antibiotics prior to urine culture so may not be reliable. Repeat hematology panel in AM # New onset atrial fibrillation Most likely secondary to severe underlying sepsis Echocardiogram shows EF 60 to 65% with mildly dilated ascending aorta Cardiology following Plan: Heart rate now much improved. Continue metoprolol for rate control and Eliquis for elevated [id number] score #Chronic Pain: Continue home [place] 7.5?3 25 twice daily as needed # GERD: Continue home pantoprazole # Hypothyroidism: Continue home levothyroxine 50 mcg p.o. daily # BPH/prostate cancer: Continue Flomax. Outpatient follow-up. # Primary hypertension: home antihypertensives as tolerated Dr. Mascorro
[2024-06-29] MEDS: GABAPENTIN 300 MG CAPSULE PO (14:10)
--- NOTE | 2024-06-29 15:56 | PC.SS ---
SS received call from physical therapyMichael who is recommending SNF and family is agreeable for SNF. SS met with patient's dtr who states patient's medical decision maker is his dtr, Nelida. SS has sent inquiry to the local SNF using [facility].
[2024-06-29] MEDS: AMITRIPTYLINE HCL 25 MG TABLET PO (16:42)
--- NOTE | 2024-06-29 18:59 | ESPR_ITS ---
<Statement entered by Lolis Yanez MD - 07/01/24 10:26> The patient is personally evaluated by me along with Dr. Middleton PGY2 and agree with the treatment plan recommendation remains in sinus rhythm and intermittent atrial fibrillation but rate controlled well. All essential components of note are reviewed and agree with the treatment plan recommendations Documentation for date of: 06/29/24 Subjective Subjective Interval history: 84 y/o male patient with significant medical history for BPH, prostate cancer s/p prostatectomy, HLD, HTN, gout, hypothyroidism and chronic pain abdominal/flank pain. Patient also endorsing dysuria and nausea. Patient denied fever, chills, chest pain/pressure, cough, diarrhea, constipation or other associated symptoms. Labs were significant for leukocytosis, mild T bili elevation and ANTONINA. Chest x-ray showed right basilar pneumonia while abdomen/pelvis CT showed atrophic right kidney and left perinephric stranding. Patient was initially admitted for sepsis but he was also noted to have in-out episodes of atrial fibrillation with RVR thus cardiology was consulted. 06/26/24: Troponin downtrended, patient sinus rhythm with rate in 60's. Latest echocardiogram in clinic showed normal EF with trace MR and AR. We recommend continuing Metoprolol tartrate 50 mg BID and transitioning patient to p.o. Eliquis 5 mg BID. 06/27/24: Patient has been in sinus rhythm. WBC downtrending, patient states there is mild improvement in pain. He is still endorsing left lower quadrant and back pain. 2/2 blood cultures grew GPC, infectious disease has been consulted, patient currently on Rocephin and Vanc. Continue with metoprolol tartrate and eliquis. 06/28/24: Patient continues to have intermittent episodes of atrial fibrillation but rate is controlled. Second sets of blood culture has been negative growth at 24 hours. Patient pending ID consultation. Blood pressure has been stable, continue current regimen of Metroprolol tartrate 50 twice daily and Eliquis 5 mg twice daily. 06/29/24: Patient has A-fib is rate controlled, repeat blood cultures have been negative at 48 hours. Continue A-fib regimen with metoprolol tartrate 50 twice daily along with Eliquis 5 mg twice daily. Exam Vital Signs Temp Pulse Resp BP Pulse Ox O2 Del Method O2 Flow Rate 97.1 F 94 12 134/92 H 93 L Nasal Cannula 2 06/29/24 16:00 06/29/24 16:00 06/29/24 16:00 06/29/24 16:00 06/29/24 16:00 06/29/24 16:00 06/29/24 16:00 Narrative Exam Constitutional: well-developed, well-nourished, in mild distress, lying in bed HEENT: NCAT, EOMI, reactive round pupils b/l, patent nares b/l, moist mucous membranes Lung: CTAB, no wheezing, no rhonchi Heart: Regular S1S2, no murmurs, gallops, or rubs Abdomen: Soft, non-distended, positive lower quadrant pain on palpation, positive left CVA tenderness, bowel sounds present throughout Extremities: No cyanosis, clubbing, or edema, LE pulses present b/l Neurologic: No focal sensory or motor deficits noted, AOx3, appropriate affect Skin: Warm, dry, no lesions or rashes noted Objective Labs 06/30/24 04:25 06/30/24 04:25 Labs: Laboratory Results - last 24 hr 06/29/24 06/29/24 06/29/24 04:50 09:03 17:40 WBC 5.6 RBC 4.25 L Hgb 11.7 L Hct 35.4 L MCV 83 MCH 27.5 MCHC 33.1 RDW Std Deviation 42.4 Plt Count 143 D Neut % (Auto) 64 Lymph % (Auto) 22 [place] % (Auto) 13 H Eos % (Auto) 1 Baso % (Auto) 0 Neut # (Auto) 3.6 Lymph # (Auto) 1.2 [place] # (Auto) 0.7 Eos # (Auto) 0.1 Baso # (Auto) 0.0 Immature Gran # (Auto) 0.01 H Absolute Nucleated RBC 0.00 Immature Gran % 0 Nucleated RBC % 0 Sodium 136 Potassium 4.3 D Chloride 103 Carbon Dioxide 26.7 Anion Gap 6 L BUN 18 Creatinine 0.9 Estim Creat Clear Calc 68.8 eGFR > 60 BUN/Creatinine Ratio 20 Glucose 112 H Calculated Osmolality 274 L Lactic Acid 1.0 Calcium 8.9 Corrected Calcium 9.1 Phosphorus 3.5 Magnesium 2.0 Total Bilirubin 0.8 AST 43 H ALT 39 Alkaline Phosphatase 100 D Total Protein 6.4 Albumin 3.8 Globulin 2.6 Albumin/Globulin Ratio 1.5 Vancomycin Trough 6.9 Quality Measures Quality Measures sepsis Current suspected stage: sepsis Possible source: pulmonary Blood cultures ordered: completed in ED Antibiotic ordered: Yes Advance care planning discussed with:: other Assessment & Plan Assessment Current Active Medications: Generic Name Dose Route Start Last Admin Trade Name Freq PRN Reason Stop Dose Admin Acetaminophen 650 mg 06/25/24 16:29 06/25/24 18:39 Acetaminophen 325 Mg Tablet PO 07/25/24 16:28 650 mg Q6H PRN Administration Fever >100.5 Acetaminophen 650 mg 06/25/24 16:29 Acetaminophen 325 Mg Tablet PO 07/25/24 16:28 Q6H PRN PAIN SCALE 1-3 (mild Hydrocodone Bitart/Acetaminophen 1 tab 06/28/24 09:54 06/29/24 08:23 Hydrocodone/Apap 7.5/325 Tablet PO 07/03/24 09:44 1 tab BID PRN Administration PAIN (CHRONIC) Protocol Amitriptyline HCl 25 mg 06/30/24 21:00 Amitriptyline Hcl 25 Mg Tablet PO 07/29/24 20:59 HS BUTCH Apixaban 5 mg 06/27/24 09:00 06/29/24 08:21 Apixaban 2.5 Mg Tablet PO 07/27/24 08:59 5 mg BID BUTCH Administration Aspirin 81 mg 06/26/24 15:45 06/29/24 08:23 Aspirin Ec 81 Mg Tabec PO 07/26/24 15:44 81 mg QDAY BUTCH Administration Docusate Sodium 100 mg 06/25/24 16:30 06/29/24 08:21 Docusate Sod 100 Mg Capsule PO 07/25/24 16:29 100 mg QDAY BUTCH Administration Protocol Gabapentin 600 mg 06/29/24 22:00 Gabapentin 300 Mg Capsule PO 07/29/24 21:59 TID BUTCH Ceftriaxone Sodium/Dextrose 50 mls @ 100 mls/hr 06/26/24 11:55 06/29/24 08:20 Rocephin/D5w 1gm Iv Premix IV 07/03/24 11:54 100 mls/hr QDAY BUTCH Administration Vancomycin/Sodium Chloride 200 mls @ 120 mls/hr 06/29/24 10:45 06/29/24 12:10 Vancomycin/Ns 1 Gm Ivpb IV 07/06/24 10:44 120 mls/hr BID@1000,2200 BUTCH Administration Protocol Levothyroxine Sodium 50 mcg 06/26/24 06:00 06/29/24 05:12 Levothyroxine Sodium 25 Mcg Tablet PO 07/26/24 05:59 50 mcg ACBR BUTCH Administration Lidocaine 1 patch 06/28/24 13:03 06/28/24 14:09 Lidocaine 5% 1 Patch TOP 07/28/24 13:02 1 patch UD PRN Administration PAIN Memantine 10 mg 06/26/24 21:00 06/29/24 08:21 Memantine Hcl 5 Mg Tablet PO 07/26/24 20:59 10 mg BID BUTCH Administration Metoprolol Tartrate 50 mg 06/26/24 09:00 06/29/24 08:21 Metoprolol Tartrate 25 Mg Tablet PO 07/26/24 08:59 50 mg BID BUTCH Administration Morphine Sulfate 4 mg 06/28/24 09:42 06/29/24 16:42 Morphine Sulf Inj 10 Mg/Ml Vial IVP 06/30/24 16:40 4 mg Q4H PRN Administration PAIN SCALE 7-10 (Severe Naloxegol 25 mg 06/29/24 09:15 06/29/24 11:02 Naloxegol Oxalate 25 Mg Tablet (Non-Formulary) PO 07/29/24 09:14 Not Given QDAY [facility] Ondansetron HCl 4 mg 06/25/24 16:29 06/29/24 09:55 Ondansetron Inj 2 Mg/Ml Inj 2 Ml IV 07/25/24 16:28 4 mg Q6H PRN Administration NAUSEA OR VOMITING Protocol Pantoprazole Sodium 40 mg 06/26/24 09:00 06/29/24 08:23 Pantoprazole 40 Mg Tablet PO 07/26/24 08:59 40 mg QDAY [facility] Administration Pharmacy Consult 1 each 06/26/24 09:00 Vancomycin Pharmacy To Dose 1 Each Each IV 07/26/24 08:59 QDAY PRN RX Tamsulosin HCl 0.4 mg 06/26/24 13:15 06/29/24 08:23 Tamsulosin Hcl 0.4 Mg Capsule PO 07/26/24 13:14 0.4 mg QDAY [facility] Administration Plan 84 y/o male patient with significant medical history for BPH, prostate cancer s/p prostatectomy, HLD, HTN, gout, hypothyroidism and chronic pain abdominal/flank pain. Patient admitted for sepsis and found to have Afib with RVR. #Atrial fibrillation with RVR likely secondary to #Sepsis #Hypertension Plan: - Continue Metoprolol tartrate 50 mg BID - Continue Eliquis 5 mg BID - Echocardiogram showed 60-65% EF with trace AR and MR - Replete electrolytes as needed - Treat underlying GPC septicemia infections #Troponinemia type II, secondary to sepsis Trops peaked at 1.4 before downtrending Patient is not complaining of chest pain/pressure #GPC sepsis secondary to #Possible pyelonephritis #Pneumonia #GERD #BPH #ANTONINA #Chronic knee pain #Hypothyroidism -Management per primary team This patient care was discussed with my attending Dr. Beau De Anda MD PGY-2 Disclaimer: Minor errors in control room operator may be present since this note was dictated by speech recognition software.
[2024-06-29] MEDS: GABAPENTIN 300 MG CAPSULE 600 MG PO (21:39)
--- NOTE | 2024-06-29 22:19 | PC.NURSE ---
Patient voided at 2200 post escobar removal
[2024-06-30] VITALS (13 sets, daily range): BP systolic 115–143; BP diastolic 76–98; PULSE 83–98; RESP 17–92; TEMP 36.1–36.6; O2SAT 92–98; BMI 32.7
--- NOTE | 2024-06-30 | XR_ITS ---
Examination: MRI lumbar spine without contrast Date and time of exam: June 30, 2024 1456 hours Comparison January 19, 2012 INDICATIONS: Low back pain months Technique: Multiple MRI axial and sagittal sections lumbar spine. Sagittal T2-weighted images, TR 3500, TE 118 T1 weighted transverse sections, TR 688 T8.5, T2-weighted sagittal sections T1 weighted sagittal sections TR 621, TE 30 T2 axial sections, TR 4, 190, TE 84. 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 film bilateral renal cysts, the largest on the right side upper pole 3.7 cm Grade 1 anterolisthesis L4 on L5 No acute lumbar fracture Adequate marrow signal lumbar vertebral bodies Moderate disc narrowing L4-L5, L5-S1 L5-S1 3 mm central lumbar disc bulge extending to the foraminal region with mild bilateral L5 ganglionic compression L4-L5 severe overall spinal stenosis, axial image 5, 8mm central lumbar disc bulge, facet arthropathy and thickening of ligamenta flava L3-L4 no disc protrusion L2-L3 no disc protrusion L1-L2 no disc protrusion IMPRESSION: L5-S1 3 mm central lumbar disc bulge with mild bilateral L5 ganglionic compression L4-L5 severe overall spinal stenosis
[2024-06-30] MEDS: GABAPENTIN 300 MG CAPSULE 600 MG PO ×3 (05:31→21:49)
[2024-06-30] MEDS: LEVOTHYROXINE SODIUM 25 MCG TABLET 50 MCG PO (05:31)
[2024-06-30 06:45] LABS: Alanine Aminotransferase 56 U/L (10-49); Albumin, Serum 3.8 gm/dL (3.4-4.8); Albumin/Globulin Ratio 1.4 (1.2-2.2); Alkaline Phosphatase 108 U/L (46-116); Anion Gap 6 (7-16); Aspartate Amino Transferase 61 U/L (0-34); BUN/Creatinine Ratio 21 Ratio (12-20); Bilirubin,Total 1.1 mg/dL (0.3-1.2); Blood Urea Nitrogen 21 mg/dL (9-23); Calcium 9.2 mg/dL (8.3-10.6); Calcium (Corrected) 9.4 mg/dL (8.5-10.1); Carbon Dioxide 28.7 mMol/L (20.0-31.0); Chloride 103 mMol/L (98-107); Estimated Creatinine Clearance 60.9 mL/min (>60); Globulin 2.7 gm/dL (2.3-3.5); Glucose 95 mg/dL (74-106); Magnesium 2.2 mg/dL (1.6-2.6); Osmolality,Calculated 278 (275-295); Potassium 4.4 mMol/L (3.4-5.1); Sodium 138 mMol/L (136-145); Total Protein 6.5 gm/dL (5.7-8.2); eGFR > 60 See Note
[2024-06-30 07:26] LABS: Basophils % (Auto) 0 % (0-2.5); Eosinophils # (Auto) 0.1 Thou/mm3 (0.0-0.5); Eosinophils % (Auto) 2 % (0-10); Hematocrit 38.9 % (41.0-53.0); Hemoglobin 12.6 g/dL (13.5-16.0); Immature Granulocytes % (Auto) 0 % (0-0); Immature Granulocytes Auto 0.02 Thou/mm3 (0.00-0.00); Lymphocytes # (Auto) 1.5 Thou/mm3 (1.0-4.8); Lymphocytes % (Auto) 25 % (10-50); Mean Corpuscular HGB Conc 32.4 g/dl (31.0-37.0); Mean Corpuscular Hemoglobin 27.7 pg (25.0-35.0); Mean Corpuscular Volume 86 fL (80-100); Monocytes % (Auto) 17 % (0-12); Neutrophils # (Auto) 3.3 Thou/mm3 (1.8-7.7); Neutrophils % (Auto) 56 % (37-80); Nucleated Red Blood Cell % 0 /100 WBC (0); Platelet Count 159 Thou/mm3 (140-440); RDW Standard Deviation 43.5 fL (35.1-43.9); Red Blood Count 4.55 Miln/mm3 (4.50-5.90); White Blood Count 5.9 Thou/mm3 (3.8-10.6)
--- NOTE | 2024-06-30 08:27 | PC.SS ---
Late note 06-30-24: SS spoke to Nelida suárez to inform her [facility], [place], and [facility] have accepted. SS was informed by Janee at [facility] they have private room available. SS has informed Nelida suárez. Nelida Suárez's choice is [facility].
--- NOTE | 2024-06-30 08:46 | PC.SS ---
Follow up note: MRI pending. Repeat blood cultures and waiting for I.D recommendations. Pt will d/c to [facility] and insurance authorization is required.
[2024-06-30] MEDS: PANTOPRAZOLE 40 MG TABLET PO (09:07)
[2024-06-30] MEDS: cefTRIAXone/D5w 1gm IV premix 50 ML IV (09:07)
[2024-06-30] MEDS: METOPROLOL TARTRATE 25 MG TABLET 50 MG PO ×2 (09:08→21:49)
[2024-06-30] MEDS: NALOXEGOL OXALATE 25 MG TABLET (NON-FORMULARY) PO (09:09)
[2024-06-30] MEDS: MEMANTINE HCL 5 MG TABLET 10 MG PO ×2 (09:09→21:48)
[2024-06-30] MEDS: TAMSULOSIN HCL 0.4 MG CAPSULE PO (09:10)
[2024-06-30] MEDS: HYDROcodone/APAP 7.5/325 TABLET 1 TAB PO (09:10)
[2024-06-30] MEDS: ASPIRIN EC 81 MG TABEC PO (09:10)
[2024-06-30] MEDS: APIXABAN 2.5 MG TABLET 5 MG PO ×2 (09:10→21:49)
[2024-06-30] MEDS: DOCUSATE SOD 100 MG CAPSULE PO (09:10)
--- NOTE | 2024-06-30 10:15 | PD.IDPROG ---
Subjective Subjective Interval history: bc pos with rare gpc. so being re run. pt still c/o pain in L flank area. mri pending this am Exam Vital Signs Temp Pulse Resp BP Pulse Ox O2 Del Method O2 Flow Rate 97.9 F 96 20 127/76 96 Room Air 1 06/30/24 07:56 06/30/24 09:48 06/30/24 09:48 06/30/24 09:08 06/30/24 09:48 06/30/24 07:56 06/30/24 09:48 Narrative Exam non ambulatory man, looks his age. on room air. neg echo and f/u bc noted. Objective - Internal Medicine Labs 06/30/24 04:25 06/30/24 04:25 Labs: Laboratory Results - last 24 hr 06/29/24 06/30/24 17:40 04:25 WBC 5.9 RBC 4.55 Hgb 12.6 L Hct 38.9 L MCV 86 MCH 27.7 MCHC 32.4 RDW Std Deviation 43.5 Plt Count 159 Neut % (Auto) 56 Lymph % (Auto) 25 [place] % (Auto) 17 H Eos % (Auto) 2 Baso % (Auto) 0 Neut # (Auto) 3.3 Lymph # (Auto) 1.5 [place] # (Auto) 1.0 H Eos # (Auto) 0.1 Baso # (Auto) 0.0 Immature Gran # (Auto) 0.02 H Absolute Nucleated RBC 0.00 Immature Gran % 0 Nucleated RBC % 0 Sodium 138 Potassium 4.4 Chloride 103 Carbon Dioxide 28.7 Anion Gap 6 L BUN 21 Creatinine 1.0 Estim Creat Clear Calc 60.9 L eGFR > 60 BUN/Creatinine Ratio 21 H Glucose 95 Calculated Osmolality 278 Lactic Acid 1.0 Calcium 9.2 Corrected Calcium 9.4 Phosphorus 4.0 Magnesium 2.2 Total Bilirubin 1.1 AST 61 H ALT 56 H Alkaline Phosphatase 108 Total Protein 6.5 Albumin 3.8 Globulin 2.7 Albumin/Globulin Ratio 1.4 Assessment & Plan A&P Narrative see dictation for assessment will f/u wednesday if remains in house Time Spent With Patient Time: Total time spent is greater than 50% in coordination of care (as documented) at patient's floor/unit and/or counseling patient:
--- NOTE | 2024-06-30 10:37 | ESPR_ITS ---
<Statement entered by Patricio Fregoso MD - 06/30/24 16:46> Patient was seen and examined at bedside. Reported mild improvement of his back pain and also his mobility. Were pending MRI for the lumbar spine to rule out if there is any osteomyelitis or abscess. Dr Krishna infectious disease specialist recommended to discontinue the ceftriaxone and continue the patient on vancomycin. Final culture and sensitivity results came back positive for Streptococcus gordonii recommended to continue vancomycin. Repeat culture came back negative and echocardiogram was negative for any vegetations ejection fraction of 60 to 65%. Bladder scan was done postvoiding was 30 mL. Patient denied any sphincter dysfunction, and denied any numbness or weakness. Regarding his pyelonephritis urinalysis was clean, infectious disease specialist decided to continue on the vancomycin. Regarding his non-STEMI, A-fib, patient does not have any chest pain, he is on metoprolol 50 mg aspirin, and Eliquis. Last bowel movement was yesterday. - Patient's plan and care discussed with my attending, Dr. Subha Fregoso MD Internal Medicine PGY-2 Documentation for date of: 06/30/24 Subjective Subjective Interval history: Patient seen today at the bedside found awake, alert, orientedx3. No overnight events reported. Patient is having Bowel movements daily. Vital signs stable at this time. Labs unremarkable. Patient still actively complaining of back pain, despite continous adjustments to pain regimen. When examined patient screams in pain with light touch of the lower back and states it spreads all over the back, states it does not cause pain if he lays still. Lumbar spine MRI ordered will follow up results. Bladder scan was done in the afternoon only 30ccs produced. ID specialist, Dr. Krishna evaluated the patient recommended to discontinue ceftriaxone and keep vancomycin, as Blood cultures grew streptococcus gordoni. Will continue to follow at this time. Exam Vital Signs Temp Pulse Resp BP Pulse Ox O2 Del Method O2 Flow Rate 97.9 F 96 20 127/76 96 Room Air 1 06/30/24 07:56 06/30/24 09:48 06/30/24 09:48 06/30/24 09:08 06/30/24 09:48 06/30/24 07:56 06/30/24 09:48 Narrative Exam Physical Exam GENERAL: NAD, AAOx3 HEENT: Moist mucosa. Eyes open, symmetrical, & clear CARDIO: Heart RRR, no obvious murmurs PULM: No noted coughing/dyspnea CTA B/L, no R/W/R GI: Abdomen soft, nondistended SKIN/MSK/EXT: significant pain in the lower back with just light touch at the skin, Pedal pulses present B/L NEURO: AAOx3, no focal neuro deficits, able to move all 4 extremities Objective Labs 07/01/24 06:00 07/01/24 06:00 Labs: Laboratory Results - last 24 hr 06/29/24 06/30/24 17:40 04:25 WBC 5.9 RBC 4.55 Hgb 12.6 L Hct 38.9 L MCV 86 MCH 27.7 MCHC 32.4 RDW Std Deviation 43.5 Plt Count 159 Neut % (Auto) 56 Lymph % (Auto) 25 [place] % (Auto) 17 H Eos % (Auto) 2 Baso % (Auto) 0 Neut # (Auto) 3.3 Lymph # (Auto) 1.5 [place] # (Auto) 1.0 H Eos # (Auto) 0.1 Baso # (Auto) 0.0 Immature Gran # (Auto) 0.02 H Absolute Nucleated RBC 0.00 Immature Gran % 0 Nucleated RBC % 0 Sodium 138 Potassium 4.4 Chloride 103 Carbon Dioxide 28.7 Anion Gap 6 L BUN 21 Creatinine 1.0 Estim Creat Clear Calc 60.9 L eGFR > 60 BUN/Creatinine Ratio 21 H Glucose 95 Calculated Osmolality 278 Lactic Acid 1.0 Calcium 9.2 Corrected Calcium 9.4 Phosphorus 4.0 Magnesium 2.2 Total Bilirubin 1.1 AST 61 H ALT 56 H Alkaline Phosphatase 108 Total Protein 6.5 Albumin 3.8 Globulin 2.7 Albumin/Globulin Ratio 1.4 Quality Measures Quality Measures sepsis Current suspected stage: sepsis Possible source: pulmonary Blood cultures ordered: completed in ED Antibiotic ordered: Yes Advance care planning discussed with:: patient Assessment & Plan Assessment Current Active Medications: Generic Name Dose Route Start Last Admin Trade Name Freq PRN Reason Stop Dose Admin Acetaminophen 650 mg 06/25/24 16:29 06/25/24 18:39 Acetaminophen 325 Mg Tablet PO 07/25/24 16:28 650 mg Q6H PRN Administration Fever >100.5 Acetaminophen 650 mg 06/25/24 16:29 Acetaminophen 325 Mg Tablet PO 07/25/24 16:28 Q6H PRN PAIN SCALE 1-3 (mild Hydrocodone Bitart/Acetaminophen 1 tab 06/28/24 09:54 06/29/24 22:23 Hydrocodone/Apap 7.5/325 Tablet PO 07/03/24 09:44 1 tab BID PRN Administration PAIN (CHRONIC) Protocol Amitriptyline HCl 25 mg 06/30/24 21:00 Amitriptyline Hcl 25 Mg Tablet PO 07/29/24 20:59 HS BUTCH Apixaban 5 mg 06/27/24 09:00 06/30/24 09:10 Apixaban 2.5 Mg Tablet PO 07/27/24 08:59 5 mg BID BUTCH Administration Aspirin 81 mg 06/26/24 15:45 06/30/24 09:10 Aspirin Ec 81 Mg Tabec PO 07/26/24 15:44 81 mg QDAY BUTCH Administration Docusate Sodium 100 mg 06/25/24 16:30 06/30/24 09:10 Docusate Sod 100 Mg Capsule PO 07/25/24 16:29 100 mg QDAY BUTCH Administration Protocol Gabapentin 600 mg 06/29/24 22:00 06/30/24 05:31 Gabapentin 300 Mg Capsule PO 07/29/24 21:59 600 mg TID BUTCH Administration Vancomycin/Sodium Chloride 200 mls @ 120 mls/hr 06/29/24 10:45 06/29/24 21:39 Vancomycin/Ns 1 Gm Ivpb IV 07/06/24 10:44 120 mls/hr BID@1000,2200 BUTCH Administration Protocol Levothyroxine Sodium 50 mcg 06/26/24 06:00 06/30/24 05:31 Levothyroxine Sodium 25 Mcg Tablet PO 07/26/24 05:59 50 mcg ACBR BUTCH Administration Lidocaine 1 patch 06/28/24 13:03 06/28/24 14:09 Lidocaine 5% 1 Patch TOP 07/28/24 13:02 1 patch UD PRN Administration PAIN Memantine 10 mg 06/26/24 21:00 06/30/24 09:09 Memantine Hcl 5 Mg Tablet PO 07/26/24 20:59 10 mg BID BUTCH Administration Metoprolol Tartrate 50 mg 06/26/24 09:00 06/30/24 09:08 Metoprolol Tartrate 25 Mg Tablet PO 07/26/24 08:59 50 mg BID BUTCH Administration Morphine Sulfate 4 mg 06/28/24 09:42 06/29/24 16:42 Morphine Sulf Inj 10 Mg/Ml Vial IVP 06/30/24 16:40 4 mg Q4H PRN Administration PAIN SCALE 7-10 (Severe Naloxegol 25 mg 06/29/24 09:15 06/30/24 09:09 Naloxegol Oxalate 25 Mg Tablet (Non-Formulary) PO 07/29/24 09:14 25 mg QDAY BUTCH Administration Ondansetron HCl 4 mg 06/25/24 16:29 06/29/24 09:55 Ondansetron Inj 2 Mg/Ml Inj 2 Ml IV 07/25/24 16:28 4 mg Q6H PRN Administration NAUSEA OR VOMITING Protocol Pantoprazole Sodium 40 mg 06/26/24 09:00 06/30/24 09:07 Pantoprazole 40 Mg Tablet PO 07/26/24 08:59 40 mg QDAY BUTCH Administration Pharmacy Consult 1 each 06/26/24 09:00 Vancomycin Pharmacy To Dose 1 Each Each IV 07/26/24 08:59 QDAY PRN RX Tamsulosin HCl 0.4 mg 06/26/24 13:15 06/30/24 09:10 Tamsulosin Hcl 0.4 Mg Capsule PO 07/26/24 13:14 0.4 mg QDAY BUTCH Administration Plan 84-year-old male with past medical history of hypertension, hyperlipidemia, hypothyroidism, BPH, prostate cancer s/p prostatectomy, gout, chronic knee pain on [place] presented to the ED due to abdominal pain. Admitted for sepsis secondary to left pyelonephritis. #Sepsis secondary to #Pyelonephritis #Right-sided pneumonia #GPC bacteremia Patient presented today with lower abdominal pain radiating to the flanks On physical exam with left-sided CVA tenderness positive On admission had SIRS 2 out of 4, tachycardia, febrile with source pyelonephritis and endorgan damage acute kidney injury and hyperbilirubinemia Abdomen/pelvis CT: Left perinephric fat stranding and CXR: Early right base pneumonia Pro-Hilario 1.23, In the ED received 2 L of IV fluids + 1L on admission Lactic acid normalized Flu negative, COVID negative, urine cx negative Blood cultures grew GPCs 2x bottles Blood cultures negative in 48 hours ID specialist, Dr. Krishna recommended to dc ceftriaxone and keep vancomycin at this time as initial blood cultures grew streptococcus gordoni -d/c ceftriaxone -on IV Vancomycin -ID consulted, appreciate recommendations #Back pain patient has been having pain in the lower back on examination patient with minimal light touch screams in pain patient has chronic pain from knee surgeries, however home medications have been resumed and continues to have pain -lumbar spine MRI ordered -restarted home norco -resumed patients home amitryptiline, gabapentin -morphine prn #NSTEMI type 2 #Paroxysmal Atrial fibrillation likely type 2 in the setting of sepsis troponins on admission 0.033 now uptrended to 1.4 EKGs were done shows some ST depressions Afib reported in and out of afib on telemetry 06/25/2024 currently on sinus rhythm Echo showed EF 60-65% mild dilation of ascending aorita, mild dilation of aortic root - on Eliquis 5mg BID - Aspirin 81mg - Metoprolol 50mg BID - Cardiology, Dr. Yanez consulted, appreciate recommendations #ANTONINA- resolved Baseline creatinine seems to be 0.9-1.1 Current creatinine 0.9 In the ED received 2 L of IVF's + 1LNS -500ml bolus NS ordered -Renally dose medications -Avoid nephrotoxic meds -Monitor CMP #Hypertensive urgency- resolved Likely in the setting of pain Will hold resuming losartan in view of soft BP - Metoprolol 50mg BID #Constipation patient uses chronic pain medications including opioids has not had a bowel movement since wednesday -added enema -continue bowel regimen -added moventik #Elevated T. bili-resolved Likely in the setting of sepsis -Will monitor at this time #Chronic pain Patient had history of bilateral knee surgeries takes chronic [place] -restarted home norco -resumed patients home amitryptiline, gabapentin -morphine prn #BPH #Prostate cancer status post prostatectomy -Resumed Flomax as taken at home #Hypothyroidism TSH elevated, free T4 nl, likely subclinical hypothyroidism -Resume levothyroxine 50 mcg p.o. daily #GERD -Resumed home pantoprazole Case discussed with my senior Dr. Curry PGY-[address] Subha Carvalho MD PGY-1 Disposition: Telemetry Fluids: none Feeding: Cardiac Thrombo prophylaxis: Eliquis Gastric Ulcer prophylaxis: Pantoprazole CODE STATUS: Full code Attending Provider Attestation/Addendum I have examined the patient, reviewed labs and imaging findings, discussed the case with the resident(s), and reviewed entered orders. I agree with the plan of care as outlined in this note, with these additional summaries/recommendations: Patient is a 84-year-old male with a medical history of chronic back pain, BPH, prostate cancer, status post TURP, neuropathy, hypothyroidism, primary hypertension, and hyperlipidemia who presents to [facility] emergency department on 06/25/2024 with chief complaints of lower abdominal pain, left flank pain, and fevers that started last night. Patient was diagnosed with sepsis and hospitalist team consulted for continuation of care. #Sepsis- Resolved #Pyelonephritis # Bacteremia SIRS: 2 out of 4 SIRS criteria met (body temp >38C, HR >90) qSOFA: 0 points indicating low risk of mortality from sepsis Presented with flank pain, fever/chills, and possible urinary symptoms Labs notable for WBC 9.7 (baseline in 5 range), Pro-Hilario 1.23, and endorgan damage with ANTONINA and hyperbilirubinemia Abdomen/pelvis CT: Left perinephric fat stranding and CXR: Early right base pneumonia Meets criteria for sepsis. Most likely source is pyelonephritis versus less likely pneumonia versus less likely viral infection Antibiotics: Continue IV Rocephin and vancomycin Fluids: Received 1.5 L fluids in ED. Will give additional 1.5 L to meet sepsis 30 cc/kg protocol No need for pressors or source control at this time Tylenol as needed for fever Plan: Pending MRI lumbar spine to rule out epidural abscess. Continue IV vancomycin and infectious disease following. Repeat blood cx showing no growth at 48 hours. # New onset atrial fibrillation Most likely secondary to severe underlying sepsis Echocardiogram shows EF 60 to 65% with mildly dilated ascending aorta Cardiology following Plan: Heart rate now much improved. Continue metoprolol for rate control and Eliquis for elevated [id number] score #Chronic Pain: Continue home [place] 7.5?3 25 twice daily as needed # GERD: Continue home pantoprazole # Hypothyroidism: Continue home levothyroxine 50 mcg p.o. daily # BPH/prostate cancer: Continue Flomax. Outpatient follow-up. # Primary hypertension: home antihypertensives as tolerated Dr. Mascorro
[2024-06-30] MEDS: VANCOMYCIN/NS 1 GM IVPB 200 ML IV ×2 (11:18→23:19)
--- NOTE | 2024-06-30 11:48 | PC.SS ---
SS has spoken to Kourtney from [employer], patient's health insurance who is reviewing patient's information to check if he meets criteria for SNF placement.
--- NOTE | 2024-06-30 12:53 | ESCONSULT_ITS ---
RE: BARB FORREST : 1940 DATE OF CONSULTATION: 06/30/2024 REFERRING PHYSICIAN: Lucio Mascorro MD REASON FOR CONSULTATION: Back pain, left flank pain with abnormal imaging and positive blood culture for GPCs that is yet to be identified but appears to be some sort of Strep species by phone with micro . The patient initially was given vancomycin and Zosyn and then was changed to vancomycin and Rocephin. Rocephin looks like it has been stopped. It is probably superfluous with the vancomycin going. Repeat blood cultures are negative so far and the original blood cultures are yet to be fully identified. Imaging of the left flank and low back is pending. Initial imaging of the area did not show any definitive process but raised a concern for possible pyelo, but the UA was benign and urine cultures were negative. So, I do not think that is an issue. His daughter provides most of the history. PAST MEDICAL HISTORY: Include inability to walk notable for one day prior to admission, prior prostate cancer surgery at [facility] a number of years ago. SURGICAL HISTORY: Includes prior hernia surgery, prior left leg surgery, and prior prostate surgery at [facility]. ALLERGIES: NONE NOTED. IMMUNIZATIONS: Last tetanus several years ago, probably when he had his left leg operated on I am unsure about flu vaccination. He has had four COVID vaccines and has had pneumococcal vaccine as well. FAMILY HISTORY: Positive for prostate cancer in his father and skin cancer in his mother. SOCIAL HISTORY: He is for 3 years. He lives semi-independently, but he has a son and another relative who spends time with him most of the day, so he is never alone. ASSESSMENT AND PLAN: Bacteremia in an 84-year-old man with a possible contaminant versus true pathogen. It appears to be possibly a Strep species, but it is hard to identify, so vancomycin alone should cover it empirically. There is no need for vancomycin and Rocephin both. I am going to stop the Rocephin. They already had a dose today. I will check on him again Wednesday, but if he has bacteremia with a Strep species, we may be able to switch to oral therapy to finish his treatment as an outpatient given the negative echocardiogram. I will look forward to seeing him on Wednesday at the soonest. cc: Lucio Mascorro MD DT: 10:25:06 TT: 12:31:00 Ref: [id number] - TID: [id number] MTDD
--- NOTE | 2024-06-30 13:42 | PD.RESCONSUL ---
HPI Data of Consult Requesting Physician: Lucio Mascroro MD Admitting Provider: Lucio Mascorro MD Attending Provider: Lucio Mascorro MD Primary Care Provider: Orville Banegas MD Consult Narrative Reason for consult: GPC bacteremia History of present illness: Patient is a 84-year-old male with history of hypertension, hyperlipidemia, gout, hypothyroidism, BPH, and prostate cancer s/p prostatectomy who presented to the ED with concerns of abdominal pain, was admitted for sepsis secondary to left pyelonephritis. Patient was started on IV Zosyn, investigation for infectious sources was initiated and blood cultures on 06/25 revealed GPC bacteremia on 4/ bottles, antibiotic regimen was subsequently changed to IV Rocephin and IV vancomycin. Blood cultures from 06/27 have been negative on pulmonary 48-hour reads. Abdominal and pelvis CT from admission reveal left perinephric fat stranding, echocardiogram revealing ejection fraction of 60-65% without any remarks regarding vegetation. Infectious disease team was consulted due to GPC bacteremia. PMH: As noted above Family history: Prostate cancer, skin cancer Surgical history: prostatectomy, left leg possibly knee surgery Social history: Denies tobacco, alcohol, illicit drug use. Lives with family. for 3 years. Allergies: None Vaccination history: Tetanus several years ago, COVID vaccines x4, pneumococcal vaccine, and influenza vaccine yearly. cc:: cc: Lucio Mascorro MD Exam Vital Signs Temp Pulse Resp BP Pulse Ox O2 Del Method O2 Flow Rate 97.7 F 98 22 H 138/96 H 94 L Room Air 1 06/30/24 12:06/30/24 12:06/30/24 12:06/30/24 12:06/30/24 12:06/30/24 12:06/30/24 09:48 Narrative Exam General: AOx3, cooperative, in no acute distress HEENT: Atraumatic/normocephalic, COMPA, Heart: RRR, S1 and S2 without clicks or murmurs Lungs: Clear on auscultation bilaterally, no difficulty breathing Abdomen: Soft, tenderness on left lower flank Skin: Intact, no cyanosis or edema noted Neuro: No focal neurological deficits noted Results Labs 07/02/24 05:08 07/02/24 05:08 Labs: Short CBC 06/30/24 Range/Units 04:25 WBC 5.9 (3.8-10.6) Thou/mm3 Hgb 12.6 L (13.5-16.0) g/dL Hct 38.9 L (41.0-53.0) % Plt Count 159 (140-440) Thou/mm3 BMP 06/30/24 04:25 Sodium 138 Potassium 4.4 Chloride 103 Carbon Dioxide 28.7 BUN 21 Creatinine 1.0 Glucose 95 Calcium 9.2 Liver Function 06/30/24 Range/Units 04:25 Total Bilirubin 1.1 (0.3-1.2) mg/dL AST 61 H (0-34) U/L ALT 56 H (10-49) U/L Alkaline Phosphatase 108 (46-116) U/L Albumin 3.8 (3.4-4.8) gm/dL Quality Measures Quality Measures VTE prophylaxis (Eliquis) Advance care planning discussed with:: patient Medications Home Medications and Allergies Home Medications ?Medication ?Instructions ?Recorded ?Confirmed ?Type hydrocodone 7.5 mg-acetaminophen 1 tab PO BID PRN Pain 05/03/18 06/25/24 History 325 mg tablet gabapentin 300 mg capsule 300 cap PO TID 11/14/21 06/25/24 History losartan 100 mg tablet 100 tab PO DAILY 11/14/21 06/25/24 History propranolol 10 mg tablet 10 tab PO DAILY 11/14/21 06/25/24 History amitriptyline 25 mg tablet 25 mg PO HS 04/17/24 06/25/24 History levothyroxine 50 mcg tablet 50 mcg PO DAILY 04/17/24 06/25/24 History memantine 10 mg tablet 10 mg PO BID 04/17/24 06/25/24 History pantoprazole 40 mg tablet,delayed 40 mg PO DAILY 04/17/24 06/25/24 History release tamsulosin 0.4 mg capsule 0.4 mg PO QDAY 06/25/24 06/25/24 History Allergies Allergy/AdvReac Type Severity Reaction Status Date / Time No Known Allergies Allergy Verified 06/25/24 19:53 Visit Medications Acetaminophen (Acetaminophen 325 Mg Tablet) 650 mg PO Q6H PRN PRN Reason: Fever >100.5 Stop: 07/25/24 16:28 Last Admin: 06/25/24 18:39 Dose: 650 mg Acetaminophen (Acetaminophen 325 Mg Tablet) 650 mg PO Q6H PRN PRN Reason: PAIN SCALE 1-3 (mild Stop: 07/25/24 16:28 Hydrocodone Bitart/Acetaminophen (Hydrocodone/Apap 7.5/325 Tablet) 1 tab PO BID PRN; Protocol PRN Reason: PAIN (CHRONIC) Stop: 07/03/24 09:44 Last Admin: 06/29/24 22:23 Dose: 1 tab Amitriptyline HCl (Amitriptyline Hcl 25 Mg Tablet) 25 mg PO HS [facility] Stop: 07/29/24 20:59 Apixaban (Apixaban 2.5 Mg Tablet) 5 mg PO BID [facility] Stop: 07/27/24 08:59 Last Admin: 06/30/24 09:10 Dose: 5 mg Aspirin (Aspirin Ec 81 Mg Tabec) 81 mg PO QDAY [facility] Stop: 07/26/24 15:44 Last Admin: 06/30/24 09:10 Dose: 81 mg Docusate Sodium (Docusate Sod 100 Mg Capsule) 100 mg PO QDAY [facility]; Protocol Stop: 07/25/24 16:29 Last Admin: 06/30/24 09:10 Dose: 100 mg Gabapentin (Gabapentin 300 Mg Capsule) 600 mg PO TID [facility] Stop: 07/29/24 21:59 Last Admin: 06/30/24 12:45 Dose: 600 mg Vancomycin/Sodium Chloride (Vancomycin/Ns 1 Gm Ivpb) 200 mls @ 120 mls/hr IV BID@1000,2200 [facility]; Protocol Stop: 07/06/24 10:44 Last Admin: 06/30/24 11:18 Dose: 120 mls/hr Levothyroxine Sodium (Levothyroxine Sodium 25 Mcg Tablet) 50 mcg PO ACBR [facility] Stop: 07/26/24 05:59 Last Admin: 06/30/24 05:31 Dose: 50 mcg Lidocaine (Lidocaine 5% 1 Patch) 1 patch TOP UD PRN PRN Reason: PAIN Stop: 07/28/24 13:02 Last Admin: 06/28/24 14:09 Dose: 1 patch Memantine (Memantine Hcl 5 Mg Tablet) 10 mg PO BID [facility] Stop: 07/26/24 20:59 Last Admin: 06/30/24 09:09 Dose: 10 mg Metoprolol Tartrate (Metoprolol Tartrate 25 Mg Tablet) 50 mg PO BID [facility] Stop: 07/26/24 08:59 Last Admin: 06/30/24 09:08 Dose: 50 mg Morphine Sulfate (Morphine Sulf Inj 10 Mg/Ml Vial) 4 mg IVP Q4H PRN PRN Reason: PAIN SCALE 7-10 (Severe Stop: 06/30/24 16:40 Last Admin: 06/29/24 16:42 Dose: 4 mg Naloxegol (Naloxegol Oxalate 25 Mg Tablet (Non-Formulary)) 25 mg PO QDAY [facility] Stop: 07/29/24 09:14 Last Admin: 06/30/24 09:09 Dose: 25 mg Ondansetron HCl (Ondansetron Inj 2 Mg/Ml Inj 2 Ml) 4 mg IV Q6H PRN; Protocol PRN Reason: NAUSEA OR VOMITING Stop: 07/25/24 16:28 Last Admin: 06/29/24 09:55 Dose: 4 mg Pantoprazole Sodium (Pantoprazole 40 Mg Tablet) 40 mg PO QDAY [facility] Stop: 07/26/24 08:59 Last Admin: 06/30/24 09:07 Dose: 40 mg Pharmacy Consult (Vancomycin Pharmacy To Dose 1 Each Each) 1 each IV QDAY PRN PRN Reason: RX Stop: 07/26/24 08:59 Tamsulosin HCl (Tamsulosin Hcl 0.4 Mg Capsule) 0.4 mg PO QDAY [facility] Stop: 07/26/24 13:14 Last Admin: 06/30/24 09:10 Dose: 0.4 mg Discontinued Medications Hydrocodone Bitart/Acetaminophen (Hydrocodone/Apap 7.5/325 Tablet) 1 tab PO BID PRN PRN Reason: PAIN SCALE 4-6 (Moderate Stop: 06/30/24 20:59 Hydrocodone Bitart/Acetaminophen (Hydrocodone/Apap 10/325 Tab) 1 tab PO Q6HR PRN PRN Reason: PAIN SCALE 4-6 (Moderate Stop: 07/01/24 09:56 Last Admin: 06/26/24 10:34 Dose: 1 tab Hydrocodone Bitart/Acetaminophen (Hydrocodone/Apap 7.5/325 Tablet) 1 tab PO BID [facility] Stop: 07/03/24 09:44 Amitriptyline HCl (Amitriptyline Hcl 25 Mg Tablet) 25 mg PO HS [facility] Stop: 07/29/24 20:59 Amitriptyline HCl (Amitriptyline Hcl 25 Mg Tablet) 25 mg PO X1 ONE Stop: 06/29/24 16:27 Last Admin: 06/29/24 16:42 Dose: 25 mg Bisacodyl (Bisacodyl 5 Mg Tabec) 5 mg PO X1 ONE; Protocol Stop: 06/28/24 09:42 Last Admin: 06/28/24 10:29 Dose: 5 mg Gabapentin (Gabapentin 300 Mg Capsule) 300 mg PO TID [facility] Stop: 07/29/24 09:14 Last Admin: 06/29/24 14:10 Dose: 300 mg Gabapentin (Gabapentin 300 Mg Capsule) 300 mg PO X1 ONE Stop: 06/29/24 16:43 Last Admin: 06/29/24 17:58 Dose: Not Given Heparin Sodium (Porcine) (Heparin Sod Inj 5000 Unit/Ml Vial) 5,000 unit SC Q8HR [facility] Stop: 07/09/24 16:44 Last Admin: 06/25/24 21:22 Dose: 5,000 unit Heparin Sodium (Porcine) (Heparin Sod Inj 5000 Unit/Ml Vial) 4,000 unit IV X1 ONE; Protocol Stop: 06/26/24 08:16 Last Admin: 06/26/24 08:53 Dose: 4,000 unit Hydralazine HCl (Hydralazine Inj 20 Mg/Ml Vial) 10 mg IV Q6HR PRN PRN Reason: SBP > 170 Stop: 07/25/24 19:18 Last Admin: 06/25/24 19:34 Dose: 10 mg Acetaminophen (Ofirmev Inj) 1,000 mg in 100 mls @ 250 mls/hr IV Q6H [facility] Stop: 06/26/24 05:13 Last Infusion: 06/25/24 12:18 Dose: Infused Sodium Chloride (Ns) 2,000 mls @ 500 mls/hr IV .Q4H ONE Stop: 06/25/24 14:49 Last Infusion: 06/25/24 16:30 Dose: Infused Piperacillin/Tazobactam/Dextrose (Zosyn) 3.375 gm in 50 mls @ 100 mls/hr IV X1 ONE Stop: 06/25/24 11:20 Last Infusion: 06/25/24 11:55 Dose: Infused Sodium Chloride (Ns) 1,000 mls @ 999 mls/hr IV .Q1H1M ONE Stop: 06/25/24 17:32 Last Admin: 06/25/24 17:45 Dose: 999 mls/hr Piperacillin/Tazobactam/Dextrose (Zosyn) 3.375 gm in 50 mls @ 12.5 mls/hr IV Q8HR [facility]; Protocol Stop: 07/02/24 16:44 Piperacillin/Tazobactam/Dextrose (Zosyn) 3.375 gm in 50 mls @ 100 mls/hr IV Q6HR [facility]; Protocol Stop: 07/02/24 17:59 Piperacillin/Tazobactam/Dextrose (Zosyn) 3.375 gm in 50 mls @ 12.5 mls/hr IV Q8HR [facility]; Protocol Stop: 07/02/24 16:59 Last Admin: 06/26/24 05:38 Dose: 12.5 mls/hr Sodium Chloride (Ns) 250 mls @ 999 mls/hr IV .Q16M ONE Stop: 06/26/24 00:02 Last Infusion: 06/26/24 01:27 Dose: Infused Heparin Sodium/Dextrose (Heparin In D5w Ivpb) 25,000 unit in 250 mls @ 11.991 mls/hr IV .[id number] [facility]; Protocol Stop: 07/10/24 07:59 Last Titration: 06/27/24 02:22 Dose: 10 units/kg/hr, 9.993 mls/hr Vancomycin HCl/Dextrose (Vancomycin/D5w 1,250 Mg Ivpb) 250 mls @ 120 mls/hr IV X1 ONE Stop: 06/26/24 10:04 Last Admin: 06/26/24 10:24 Dose: 120 mls/hr Magnesium Sulfate (Magnesium Sulfate Ivpb) 4 gm in 50 mls @ 12.5 mls/hr IV X1 ONE Stop: 06/26/24 12:03 Last Admin: 06/26/24 08:53 Dose: 12.5 mls/hr Ceftriaxone Sodium/Dextrose (Rocephin/D5w 1gm Iv Premix) 50 mls @ 100 mls/hr IV QDAY [facility] Stop: 07/03/24 11:54 Last Admin: 06/30/24 09:07 Dose: 100 mls/hr Vancomycin/Sodium Chloride (Vancomycin/Ns 1 Gm Ivpb) 200 mls @ 120 mls/hr IV QDAY@1000 [facility] Stop: 07/04/24 09:59 Last Infusion: 06/28/24 12:09 Dose: Infused Sodium Chloride (Ns) 500 mls @ 999 mls/hr IV .Q31M ONE Stop: 06/27/24 09:29 Last Admin: 06/27/24 09:25 Dose: 999 mls/hr Vancomycin HCl (Vancomycin/Water 1gm Ivpb) 200 mls @ 120 mls/hr IV BID@1000,2200 [facility]; Protocol Stop: 07/06/24 10:29 Ketorolac Tromethamine (Ketorolac Inj 30 Mg/Ml Vial) 15 mg IVP Q6HR PRN PRN Reason: PAIN SCALE 4-6 (Moderate Stop: 07/01/24 11:55 Last Admin: 06/27/24 23:09 Dose: 15 mg Morphine Sulfate (Morphine Sulf Inj 10 Mg/Ml Vial) 4 mg IVP X1 ONE Stop: 06/25/24 11:48 Last Admin: 06/25/24 11:54 Dose: 4 mg Morphine Sulfate (Morphine Sulf Inj 10 Mg/Ml Vial) 2 mg IVP Q2H PRN PRN Reason: PAIN SCALE 7-10 (Severe Stop: 06/30/24 16:40 Morphine Sulfate (Morphine Sulf Inj 10 Mg/Ml Vial) 2 mg IVP Q4H PRN PRN Reason: PAIN SCALE 7-10 (Severe Stop: 06/30/24 16:40 Last Admin: 06/25/24 17:20 Dose: 2 mg Morphine Sulfate (Morphine Sulf Inj 10 Mg/Ml Vial) 4 mg IVP Q4H PRN PRN Reason: PAIN SCALE 7-10 (Severe Stop: 06/30/24 16:40 Last Admin: 06/26/24 08:34 Dose: 4 mg Morphine Sulfate (Morphine Sulf Inj 10 Mg/Ml Vial) 6 mg IVP Q4H PRN PRN Reason: PAIN SCALE 7-10 (Severe Stop: 06/30/24 16:40 Last Admin: 06/28/24 08:24 Dose: 6 mg Ondansetron HCl (Ondansetron Inj 2 Mg/Ml Inj 2 Ml) 4 mg IV X1 ONE; Protocol Stop: 06/25/24 11:49 Last Admin: 06/25/24 11:54 Dose: 4 mg Potassium Chloride (Potassium Chloride 20 Meq Tabcr) 40 meq PO X1 ONE Stop: 06/28/24 07:12 Last Admin: 06/28/24 08:27 Dose: 40 meq Potassium Phos/Sodium Phos (Naph,[facility] Mbdb 1 Packet (1.5 Gm)) 1 packet PO X1 ONE Stop: 06/28/24 07:12 Last Admin: 06/28/24 08:28 Dose: 1 packet Assessment & Plan Plan Patient is a 84-year-old male with history of hypertension, hyperlipidemia, gout, hypothyroidism, BPH, and prostate cancer s/p prostatectomy who presented to the ED with concerns of abdominal pain, was admitted for sepsis secondary to left pyelonephritis. Patient was started on IV Zosyn, investigation for infectious sources was initiated and blood cultures on 06/25 revealed GPC bacteremia on 4/4 bottles, antibiotic regimen was subsequently changed to IV Rocephin and IV vancomycin. Blood cultures from 06/27 have been negative on pulmonary 48-hour reads. Abdominal and pelvis CT from admission reveal left perinephric fat stranding, echocardiogram revealing ejection fraction of 60-65% without any remarks regarding vegetation. Infectious disease team was consulted due to GPC bacteremia. # GPC bacteremia ? Blood cultures 06/25 revealed GPC on 4/4 bottles, identification pending ? Blood cultures 06/27 negative on 48-hour pulmonary reads ? IV Rocephin (06/26?present ? IV vancomycin (06/26?present) ? Echocardiogram reveals ejection fraction 60-65% without comment of vegetation Plan ? Rocephin to be stopped today 06/30 ? Continue IV vancomycin, follow-up with blood culture species identification ? May be possible to switch to oral therapy given negative echocardiogram ? Infectious disease team will continue to follow patient #Sepsis secondary to pyelenphritis vs PNA #Pyelonephritis #Right-sided pneumonia #ANTONINA #Hypertensive urgency #Chronic pain #BPH #GERD #Chronic pain - Management per primary team Patient case discussed with attending physician Dr. Erendira Rangel, DO PGY-3
--- NOTE | 2024-06-30 14:19 | PC.SS ---
Addendum entered by Susan Tristan 06/30/24 14:40: SS has sent PASRR through file exchange. Original Note: SS has spoken to Christine at [facility] who explained insurance authorization has been provided by [facility], patient's health insurance.
[2024-06-30] MEDS: MORPHINE SULF INJ 10 MG/ML VIAL 4 MG IVP (16:30)
--- NOTE | 2024-06-30 19:06 | PD.RESPRO ---
Documentation for date of: 06/30/24 Subjective Subjective Interval history: 84 y/o male patient with significant medical history for BPH, prostate cancer s/p prostatectomy, HLD, HTN, gout, hypothyroidism and chronic pain abdominal/flank pain. Patient also endorsing dysuria and nausea. Patient denied fever, chills, chest pain/pressure, cough, diarrhea, constipation or other associated symptoms. Labs were significant for leukocytosis, mild T bili elevation and ANTONINA. Chest x-ray showed right basilar pneumonia while abdomen/pelvis CT showed atrophic right kidney and left perinephric stranding. Patient was initially admitted for sepsis but he was also noted to have in-out episodes of atrial fibrillation with RVR thus cardiology was consulted. 06/26/24: Troponin downtrended, patient sinus rhythm with rate in 60's. Latest echocardiogram in clinic showed normal EF with trace MR and AR. We recommend continuing Metoprolol tartrate 50 mg BID and transitioning patient to p.o. Eliquis 5 mg BID. 06/27/24: Patient has been in sinus rhythm. WBC downtrending, patient states there is mild improvement in pain. He is still endorsing left lower quadrant and back pain. 2/2 blood cultures grew GPC, infectious disease has been consulted, patient currently on Rocephin and Vanc. Continue with metoprolol tartrate and eliquis. 06/28/24: Patient continues to have intermittent episodes of atrial fibrillation but rate is controlled. Second sets of blood culture has been negative growth at 24 hours. Patient pending ID consultation. Blood pressure has been stable, continue current regimen of Metroprolol tartrate 50 twice daily and Eliquis 5 mg twice daily. 06/29/24: Patient has A-fib is rate controlled, repeat blood cultures have been negative at 48 hours. Continue A-fib regimen with metoprolol tartrate 50 twice daily along with Eliquis 5 mg twice daily. 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 Patient continues to have intermittent A-fib with rates mostly in the lower 100s. ID adjusted antibiotics as source of the blood cultures grew Streptococcus gordonii. As far as patient's A-fib we will not make any changes to the current medication regimen. Exam Vital Signs Temp Pulse Resp BP Pulse Ox O2 Del Method O2 Flow Rate 97.1 F 93 17 135/91 H 96 Room Air 1 06/30/24 16:00 06/30/24 16:00 06/30/24 16:00 06/30/24 16:00 06/30/24 16:00 06/30/24 16:00 06/30/24 09:48 Narrative Exam Constitutional: well-developed, well-nourished, in mild distress, lying in bed HEENT: NCAT, EOMI, reactive round pupils b/l, patent nares b/l, moist mucous membranes Lung: CTAB, no wheezing, no rhonchi Heart: Regular S1S2, no murmurs, gallops, or rubs Abdomen: Soft, non-distended, positive lower quadrant pain on palpation, positive left CVA tenderness, bowel sounds present throughout Extremities: No cyanosis, clubbing, or edema, LE pulses present b/l Neurologic: No focal sensory or motor deficits noted, AOx3, appropriate affect Skin: Warm, dry, no lesions or rashes noted Objective Labs 06/30/24 04:25 06/30/24 04:25 Labs: Laboratory Results - last 24 hr 06/30/24 04:25 WBC 5.9 RBC 4.55 Hgb 12.6 L Hct 38.9 L MCV 86 MCH 27.7 MCHC 32.4 RDW Std Deviation 43.5 Plt Count 159 Neut % (Auto) 56 Lymph % (Auto) 25 [place] % (Auto) 17 H Eos % (Auto) 2 Baso % (Auto) 0 Neut # (Auto) 3.3 Lymph # (Auto) 1.5 [place] # (Auto) 1.0 H Eos # (Auto) 0.1 Baso # (Auto) 0.0 Immature Gran # (Auto) 0.02 H Absolute Nucleated RBC 0.00 Immature Gran % 0 Nucleated RBC % 0 Sodium 138 Potassium 4.4 Chloride 103 Carbon Dioxide 28.7 Anion Gap 6 L BUN 21 Creatinine 1.0 Estim Creat Clear Calc 60.9 L eGFR > 60 BUN/Creatinine Ratio 21 H Glucose 95 Calculated Osmolality 278 Calcium 9.2 Corrected Calcium 9.4 Phosphorus 4.0 Magnesium 2.2 Total Bilirubin 1.1 AST 61 H ALT 56 H Alkaline Phosphatase 108 Total Protein 6.5 Albumin 3.8 Globulin 2.7 Albumin/Globulin Ratio 1.4 Quality Measures Quality Measures VTE prophylaxis (Eliquis) Advance care planning discussed with:: other Assessment & Plan Assessment Current Active Medications: Generic Name Dose Route Start Last Admin Trade Name Jensenq PRN Reason Stop Dose Admin Acetaminophen 650 mg 06/25/24 16:29 06/25/24 18:39 Acetaminophen 325 Mg Tablet PO 07/25/24 16:28 650 mg Q6H PRN Administration Fever >100.5 Acetaminophen 650 mg 06/25/24 16:29 Acetaminophen 325 Mg Tablet PO 07/25/24 16:28 Q6H PRN PAIN SCALE 1-3 (mild Hydrocodone Bitart/Acetaminophen 1 tab 06/28/24 09:54 06/30/24 09:10 Hydrocodone/Apap 7.5/325 Tablet PO 07/03/24 09:44 1 tab BID PRN Administration PAIN (CHRONIC) Protocol Amitriptyline HCl 25 mg 06/30/24 21:00 Amitriptyline Hcl 25 Mg Tablet PO 07/29/24 20:59 HS BUT[facility] Apixaban 5 mg 06/27/24 09:00 06/30/24 09:10 Apixaban 2.5 Mg Tablet PO 07/27/24 08:59 5 mg BID [facility] Administration Aspirin 81 mg 06/26/24 15:45 06/30/24 09:10 Aspirin Ec 81 Mg Tabec PO 07/26/24 15:44 81 mg QDAY [facility] Administration Docusate Sodium 100 mg 06/25/24 16:30 06/30/24 09:10 Docusate Sod 100 Mg Capsule PO 07/25/24 16:29 100 mg QDAY [facility] Administration Protocol Gabapentin 600 mg 06/29/24 22:00 06/30/24 12:45 Gabapentin 300 Mg Capsule PO 07/29/24 21:59 600 mg TID [facility] Administration Vancomycin/Sodium Chloride 200 mls @ 120 mls/hr 06/29/24 10:45 06/30/24 16:28 Vancomycin/Ns 1 Gm Ivpb IV 07/06/24 10:44 Infused BID@1000,2200 [facility] Infusion Protocol Levothyroxine Sodium 50 mcg 06/26/24 06:00 06/30/24 05:31 Levothyroxine Sodium 25 Mcg Tablet PO 07/26/24 05:59 50 mcg ACBR [facility] Administration Lidocaine 1 patch 06/28/24 13:03 06/28/24 14:09 Lidocaine 5% 1 Patch TOP 07/28/24 13:02 1 patch UD PRN Administration PAIN Memantine 10 mg 06/26/24 21:00 06/30/24 09:09 Memantine Hcl 5 Mg Tablet PO 07/26/24 20:59 10 mg BID [facility] Administration Metoprolol Tartrate 50 mg 06/26/24 09:00 06/30/24 09:08 Metoprolol Tartrate 25 Mg Tablet PO 07/26/24 08:59 50 mg BID [facility] Administration Naloxegol 25 mg 06/29/24 09:15 06/30/24 09:09 Naloxegol Oxalate 25 Mg Tablet (Non-Formulary) PO 07/29/24 09:14 25 mg QDAY [facility] Administration Ondansetron HCl 4 mg 06/25/24 16:29 06/29/24 09:55 Ondansetron Inj 2 Mg/Ml Inj 2 Ml IV 07/25/24 16:28 4 mg Q6H PRN Administration NAUSEA OR VOMITING Protocol Pantoprazole Sodium 40 mg 06/26/24 09:00 06/30/24 09:07 Pantoprazole 40 Mg Tablet PO 07/26/24 08:59 40 mg QDAY [facility] Administration Pharmacy Consult 1 each 06/26/24 09:00 Vancomycin Pharmacy To Dose 1 Each Each IV 07/26/24 08:59 QDAY PRN RX Tamsulosin HCl 0.4 mg 06/26/24 13:15 06/30/24 09:10 Tamsulosin Hcl 0.4 Mg Capsule PO 07/26/24 13:14 0.4 mg QDAY [facility] Administration Plan 84 y/o male patient with significant medical history for BPH, prostate cancer s/p prostatectomy, HLD, HTN, gout, hypothyroidism and chronic pain abdominal/flank pain. Patient admitted for sepsis and found to have Afib with RVR. #Atrial fibrillation with RVR likely secondary to #Sepsis #Hypertension Plan: - Continue Metoprolol tartrate 50 mg BID - Continue Eliquis 5 mg BID - Echocardiogram showed 60-65% EF with trace AR and MR - Replete electrolytes as needed - Treat underlying GPC infection #Troponinemia type II, secondary to sepsis Trops peaked at 1.4 before downtrending Patient is not complaining of chest pain/pressure #GPC sepsis secondary to #Possible pyelonephritis #Pneumonia #GERD #BPH #ANTONINA #Chronic knee pain #Hypothyroidism -Management per primary team This patient care was discussed with my attending Dr. Beau De Anda MD PGY-2 Disclaimer: Minor errors in engineering professor may be present since this note was dictated by speech recognition software.
[2024-06-30] MEDS: AMITRIPTYLINE HCL 25 MG TABLET PO (21:49)
[2024-06-30 23:13] LABS: Vancomycin,Trough 16.7 mcg/mL (5.0-10.0)
[2024-07-01] VITALS (9 sets, daily range): BP systolic 117–142; BP diastolic 81–105; PULSE 81–107; RESP 18–93; TEMP 35.9–36.4; O2SAT 93–97; BMI 32.7
[2024-07-01] MEDS: HYDROcodone/APAP 7.5/325 TABLET 1 TAB PO (02:47)
[2024-07-01] MEDS: LEVOTHYROXINE SODIUM 25 MCG TABLET 50 MCG PO (05:05)
[2024-07-01] MEDS: GABAPENTIN 300 MG CAPSULE 600 MG PO ×3 (05:05→21:41)
[2024-07-01 06:28] LABS: Basophils # (Auto) 0.1 Thou/mm3 (0.0-0.2); Basophils % (Auto) 1 % (0-2.5); Eosinophils # (Auto) 0.3 Thou/mm3 (0.0-0.5); Eosinophils % (Auto) 3 % (0-10); Hematocrit 39.3 % (41.0-53.0); Hemoglobin 12.7 g/dL (13.5-16.0); Immature Granulocytes % (Auto) 1 % (0-0); Immature Granulocytes Auto 0.06 Thou/mm3 (0.00-0.00); Lymphocytes # (Auto) 1.9 Thou/mm3 (1.0-4.8); Lymphocytes % (Auto) 20 % (10-50); Mean Corpuscular HGB Conc 32.3 g/dl (31.0-37.0); Mean Corpuscular Hemoglobin 27.4 pg (25.0-35.0); Mean Corpuscular Volume 85 fL (80-100); Monocytes % (Auto) 11 % (0-12); Neutrophils # (Auto) 5.8 Thou/mm3 (1.8-7.7); Neutrophils % (Auto) 64 % (37-80); Nucleated Red Blood Cell % 0 /100 WBC (0); Platelet Count 192 Thou/mm3 (140-440); RDW Standard Deviation 42.4 fL (35.1-43.9); Red Blood Count 4.63 Miln/mm3 (4.50-5.90); White Blood Count 9.1 Thou/mm3 (3.8-10.6)
[2024-07-01 06:54] LABS: Alanine Aminotransferase 71 U/L (10-49); Albumin, Serum 3.9 gm/dL (3.4-4.8); Albumin/Globulin Ratio 1.4 (1.2-2.2); Alkaline Phosphatase 124 U/L (46-116); Anion Gap 6 (7-16); Aspartate Amino Transferase 58 U/L (0-34); BUN/Creatinine Ratio 21 Ratio (12-20); Bilirubin,Total 1.1 mg/dL (0.3-1.2); Blood Urea Nitrogen 21 mg/dL (9-23); Calcium 9.2 mg/dL (8.3-10.6); Calcium (Corrected) 9.3 mg/dL (8.5-10.1); Carbon Dioxide 29.2 mMol/L (20.0-31.0); Chloride 101 mMol/L (98-107); Estimated Creatinine Clearance 60.9 mL/min (>60); Globulin 2.7 gm/dL (2.3-3.5); Glucose 105 mg/dL (74-106); Osmolality,Calculated 274 (275-295); Phosphorous 3.2 mg/dL (2.4-5.1); Sodium 136 mMol/L (136-145); Total Protein 6.6 gm/dL (5.7-8.2); eGFR > 60 See Note
[2024-07-01] MEDS: POTASSIUM CHLORIDE 20 mEq TABCR PO (08:11)
[2024-07-01] MEDS: METOPROLOL TARTRATE 25 MG TABLET 50 MG PO ×2 (08:12→20:37)
[2024-07-01] MEDS: TAMSULOSIN HCL 0.4 MG CAPSULE PO (08:12)
[2024-07-01] MEDS: DOCUSATE SOD 100 MG CAPSULE PO (08:12)
[2024-07-01] MEDS: MEMANTINE HCL 5 MG TABLET 10 MG PO ×2 (08:12→20:37)
[2024-07-01] MEDS: LIDOCAINE 5% 1 PATCH TOP (08:13)
[2024-07-01] MEDS: Magnesium Sulfate 2 GM Ivpb 2 GM/50 ML BAG IV (08:13)
[2024-07-01] MEDS: PANTOPRAZOLE 40 MG TABLET PO (08:13)
[2024-07-01] MEDS: ASPIRIN EC 81 MG TABEC PO (08:13)
[2024-07-01] MEDS: APIXABAN 2.5 MG TABLET 5 MG PO ×2 (09:16→20:37)
[2024-07-01] MEDS: NALOXEGOL OXALATE 25 MG TABLET (NON-FORMULARY) PO (09:16)
[2024-07-01] MEDS: cephALEXin 250 MG CAPSULE 500 MG PO ×3 (11:44→20:36)
[2024-07-01] MEDS: HYDROcodone/APAP 10/325 TAB PO ×2 (11:44→20:38)
[2024-07-01] MEDS: CYCLObenzaPRINE 5 MG TABLET 15 MG PO (12:57)
[2024-07-01] MEDS: KETOROLAC INJ 30 MG/ML VIAL IVP (12:58)
--- NOTE | 2024-07-01 13:07 | ESPR_ITS ---
<Statement entered by Patricio Fregoso MD - 07/01/24 17:01> Patient was seen and examined at bedside. Family reported that 7 days before presentation he was in [place] in which he had a dental procedure which may explain the patient's bacteremia. Patient was supposed to be discharged today however patient has been experiencing intractable back pain. MRI showed severe spinal stenosis with L5 S1 disc herniation. Patient was having difficulty flexing his lumbar area. There was no weakness, bladder or anal sphincter dysfunction. We started the patient on Toradol x 1 and will start the patient on muscle relaxant Flexeril 3 times daily and schedule Tylenol for 2 days. [facility]ticipated [facility] as per physical therapy recommendations. - Patient's plan and care discussed with my attending, Dr. Subha Fregoso MD Internal Medicine PGY-2 Documentation for date of: 07/01/24 Subjective Subjective Interval history: Patient seen today at the bedside fine awake, alert, oriented x 3. No overnight events reported. Vital signs stable at this time, labs unremarkable. Continues to have some back pain, lumbar spinal MRI showed L4-L5 spinal stenosis, L5-S1 disc bulging with mild bilateral L5 ganglionic compression, [place]'s dose increased to 10, added Toradol 30 IV x 1, and Flexeril 15 daily as a muscle relaxant. Per ID recommendations antibiotics can be switched to oral route therefore vancomycin was switched to Keflex 500 mg 4 times daily. Anticipate possible discharge in the next 24 to 48 hours. Exam Vital Signs Temp Pulse Resp BP Pulse Ox O2 Del Method O2 Flow Rate 97.1 F 88 19 127/95 H 97 Room Air 1 07/01/24 12:00 07/01/24 12:07/01/24 12:07/01/24 12:07/01/24 12:07/01/24 12:06/30/24 09:48 Narrative Exam Physical Exam GENERAL: NAD, AAOx3 HEENT: Moist mucosa. Eyes open, symmetrical, & clear CARDIO: Heart RRR, no obvious murmurs PULM: No noted coughing/dyspnea CTA B/L, no R/W/R GI: Abdomen soft, nondistended SKIN/MSK/EXT: pain in the lower back, Pedal pulses present B/L NEURO: AAOx3, no focal neuro deficits, able to move all 4 extremities Objective Labs 07/02/24 05:08 07/02/24 05:08 Labs: Laboratory Results - last 24 hr 06/30/24 07/01/24 21:17 06:00 WBC 9.1 D RBC 4.63 Hgb 12.7 L Hct 39.3 L MCV 85 MCH 27.4 MCHC 32.3 RDW Std Deviation 42.4 Plt Count 192 D Neut % (Auto) 64 Lymph % (Auto) 20 Pope % (Auto) 11 Eos % (Auto) 3 Baso % (Auto) 1 Neut # (Auto) 5.8 Lymph # (Auto) 1.9 Pope # (Auto) 1.0 H Eos # (Auto) 0.3 Baso # (Auto) 0.1 Immature Gran # (Auto) 0.06 H Absolute Nucleated RBC 0.00 Immature Gran % 1 H Nucleated RBC % 0 Sodium 136 Potassium 4.0 Chloride 101 Carbon Dioxide 29.2 Anion Gap 6 L BUN 21 Creatinine 1.0 Estim Creat Clear Calc 60.9 L eGFR > 60 BUN/Creatinine Ratio 21 H Glucose 105 Calculated Osmolality 274 L Calcium 9.2 Corrected Calcium 9.3 Phosphorus 3.2 Magnesium 2.0 Total Bilirubin 1.1 AST 58 H ALT 71 H Alkaline Phosphatase 124 H Total Protein 6.6 Albumin 3.9 Globulin 2.7 Albumin/Globulin Ratio 1.4 Vancomycin Trough 16.7 H Quality Measures Quality Measures VTE prophylaxis (Eliquis) Advance care planning discussed with:: patient and child Assessment & Plan Assessment Current Active Medications: Generic Name Dose Route Start Last Admin Trade Name Jensenq PRN Reason Stop Dose Admin Acetaminophen 650 mg 06/25/24 16:29 06/25/24 18:39 Acetaminophen 325 Mg Tablet PO 07/25/24 16:28 650 mg Q6H PRN Administration Fever >100.5 Acetaminophen 650 mg 06/25/24 16:29 Acetaminophen 325 Mg Tablet PO 07/25/24 16:28 Q6H PRN PAIN SCALE 1-3 (mild Acetaminophen 325 mg 07/01/24 14:00 Acetaminophen 325 Mg Tablet PO 07/31/24 13:59 TID BUTCH Hydrocodone Bitart/Acetaminophen 1 tab 07/01/24 09:45 07/01/24 11:44 Hydrocodone/Apap 10/325 Tab PO 07/06/24 09:44 1 tab BID BUTCH Administration Amitriptyline HCl 25 mg 06/30/24 21:00 06/30/24 21:49 Amitriptyline Hcl 25 Mg Tablet PO 07/29/24 20:59 25 mg HS BUTCH Administration Apixaban 5 mg 06/27/24 09:00 07/01/24 09:16 Apixaban 2.5 Mg Tablet PO 07/27/24 08:59 5 mg BID BUTCH Administration Aspirin 81 mg 06/26/24 15:45 07/01/24 08:13 Aspirin Ec 81 Mg Tabec PO 07/26/24 15:44 81 mg QDAY BUTCH Administration Cephalexin HCl 500 mg 07/01/24 12:00 07/01/24 11:44 Cephalexin 250 Mg Capsule PO 07/08/24 11:59 500 mg QID BUTCH Administration Cyclobenzaprine HCl 15 mg 07/01/24 12:45 07/01/24 12:57 Cyclobenzaprine 5 Mg Tablet PO 07/31/24 12:44 15 mg QDAY BUTCH Administration Docusate Sodium 100 mg 06/25/24 16:30 07/01/24 08:12 Docusate Sod 100 Mg Capsule PO 07/25/24 16:29 100 mg QDAY BUTCH Administration Protocol Gabapentin 600 mg 06/29/24 22:00 07/01/24 05:05 Gabapentin 300 Mg Capsule PO 07/29/24 21:59 600 mg TID BUTCH Administration Levothyroxine Sodium 50 mcg 06/26/24 06:00 07/01/24 05:05 Levothyroxine Sodium 25 Mcg Tablet PO 07/26/24 05:59 50 mcg ACBR BUTCH Administration Lidocaine 1 patch 06/28/24 13:03 07/01/24 08:13 Lidocaine 5% 1 Patch TOP 07/28/24 13:02 1 patch UD PRN Administration PAIN Memantine 10 mg 06/26/24 21:00 07/01/24 08:12 Memantine Hcl 5 Mg Tablet PO 07/26/24 20:59 10 mg BID BUTCH Administration Metoprolol Tartrate 50 mg 06/26/24 09:00 07/01/24 08:12 Metoprolol Tartrate 25 Mg Tablet PO 07/26/24 08:59 50 mg BID BUTCH Administration Naloxegol 25 mg 06/29/24 09:15 07/01/24 09:16 Naloxegol Oxalate 25 Mg Tablet (Non-Formulary) PO 07/29/24 09:14 25 mg QDAY BUTCH Administration Ondansetron HCl 4 mg 06/25/24 16:29 06/29/24 09:55 Ondansetron Inj 2 Mg/Ml Inj 2 Ml IV 07/25/24 16:28 4 mg Q6H PRN Administration NAUSEA OR VOMITING Protocol Pantoprazole Sodium 40 mg 06/26/24 09:00 07/01/24 08:13 Pantoprazole 40 Mg Tablet PO 07/26/24 08:59 40 mg QDAY BUTCH Administration Tamsulosin HCl 0.4 mg 06/26/24 13:15 07/01/24 08:12 Tamsulosin Hcl 0.4 Mg Capsule PO 07/26/24 13:14 0.4 mg QDAY BUTCH Administration Plan 84-year-old male with past medical history of hypertension, hyperlipidemia, hypothyroidism, BPH, prostate cancer s/p prostatectomy, gout, chronic knee pain on [place] presented to the ED due to abdominal pain. Admitted for sepsis secondary to left pyelonephritis. #Sepsis secondary to #Pyelonephritis #Right-sided pneumonia #GPC bacteremia Patient presented today with lower abdominal pain radiating to the flanks On physical exam with left-sided CVA tenderness positive On admission had SIRS 2 out of 4, tachycardia, febrile with source pyelonephritis and endorgan damage acute kidney injury and hyperbilirubinemia Abdomen/pelvis CT: Left perinephric fat stranding and CXR: Early right base pneumonia Pro-Hilario 1.23, In the ED received 2 L of IV fluids + 1L on admission Lactic acid normalized Flu negative, COVID negative, urine cx negative Blood cultures grew GPCs 2x bottles Blood cultures negative in 48 hours ID specialist, Dr. Krishna recommended to dc ceftriaxone and keep vancomycin at this time as initial blood cultures grew streptococcus gordoni -d/c ceftriaxone -on IV Vancomycin -ID consulted, appreciate recommendations #Back pain patient has been having pain in the lower back on examination patient with minimal light touch screams in pain patient has chronic pain from knee surgeries, however home medications have been resumed and continues to have pain -lumbar spine MRI ordered -restarted home norco, dose increased from 7.5 to 10 -resumed patients home amitryptiline, gabapentin - toradol 30mg IV x1 - Flexeril 15mg qday #NSTEMI type 2 #Paroxysmal Atrial fibrillation likely type 2 in the setting of sepsis troponins on admission 0.033 now uptrended to 1.4 EKGs were done shows some ST depressions Afib reported in and out of afib on telemetry 06/25/2024 currently on sinus rhythm Echo showed EF 60-65% mild dilation of ascending aorita, mild dilation of aortic root - on Eliquis 5mg BID - Aspirin 81mg - Metoprolol 50mg BID - Cardiology, Dr. Yanez consulted, appreciate recommendations #ANTONINA- resolved Baseline creatinine seems to be 0.9-1.1 Current creatinine 0.9 In the ED received 2 L of IVF's + 1LNS -Renally dose medications -Avoid nephrotoxic meds -Monitor CMP #Hypertensive urgency- resolved Likely in the setting of pain Will hold resuming losartan in view of soft BP - Metoprolol 50mg BID #Constipation patient uses chronic pain medications including opioids has not had a bowel movement since wednesday -continue bowel regimen -added moventik #Elevated T. bili-resolved Likely in the setting of sepsis -Will monitor at this time #Chronic pain Patient had history of bilateral knee surgeries takes chronic [place] -restarted home norco -resumed patients home amitryptiline, gabapentin #BPH #Prostate cancer status post prostatectomy -Resumed Flomax as taken at home #Hypothyroidism TSH elevated, free T4 nl, likely subclinical hypothyroidism -Resume levothyroxine 50 mcg p.o. daily #GERD -Resumed home pantoprazole Case discussed with my senior Dr. Curry PGY-[address] Subha Carvalho MD PGY-1 Disposition: Telemetry Fluids: none Feeding: Cardiac Thrombo prophylaxis: Eliquis Gastric Ulcer prophylaxis: Pantoprazole CODE STATUS: Full code Attending Provider Attestation/Addendum I have examined the patient, reviewed labs and imaging findings, discussed the case with the resident(s), and reviewed entered orders. I agree with the plan of care as outlined in this note, with these additional summaries/recommendations: Patient seen at bedside. No acute overnight events. MRI lumbar spine was negative for epidural abscess but did show L5/S1 3 mm central lumbar disc bulge with mild bilateral L5 ganglionic compression and L4-L5 severe overall spinal stenosis. Patient endorsing intractable pain today requiring IV medicines. Continue pain management and physical therapy. Patient counseled on outpatient orthopedics follow-up. Continue antibiotics for bacteremia and pyelonephritis. Continue apixaban 5 mg p.o. twice daily and metoprolol for new onset atrial fibrillation. Anticipate discharge in the next [address] Mascorro
--- NOTE | 2024-07-01 18:13 | ESPR_ITS ---
<Statement entered by Lolis Yanez MD - 07/02/24 15:47> I personally examined the patient evaluated the patient myself along with PGY 2 Dr. Middleton agree with the treatment plan recommendation patient has atrial fibrillation rate controlled well. Documentation for date of: 07/01/24 Subjective Subjective Interval history: 84 y/o male patient with significant medical history for BPH, prostate cancer s/p prostatectomy, HLD, HTN, gout, hypothyroidism and chronic pain abdominal/flank pain. Patient also endorsing dysuria and nausea. Patient denied fever, chills, chest pain/pressure, cough, diarrhea, constipation or other associated symptoms. Labs were significant for leukocytosis, mild T bili elevation and ANTONINA. Chest x-ray showed right basilar pneumonia while abdomen/pelvis CT showed atrophic right kidney and left perinephric stranding. Patient was initially admitted for sepsis but he was also noted to have in-out episodes of atrial fibrillation with RVR thus cardiology was consulted. 06/26/24: Troponin downtrended, patient sinus rhythm with rate in 60's. Latest echocardiogram in clinic showed normal EF with trace MR and AR. We recommend continuing Metoprolol tartrate 50 mg BID and transitioning patient to p.o. Eliquis 5 mg BID. 06/27/24: Patient has been in sinus rhythm. WBC downtrending, patient states there is mild improvement in pain. He is still endorsing left lower quadrant and back pain. 2/2 blood cultures grew GPC, infectious disease has been consulted, patient currently on Rocephin and Vanc. Continue with metoprolol tartrate and eliquis. 06/28/24: Patient continues to have intermittent episodes of atrial fibrillation but rate is controlled. Second sets of blood culture has been negative growth at 24 hours. Patient pending ID consultation. Blood pressure has been stable, continue current regimen of Metroprolol tartrate 50 twice daily and Eliquis 5 mg twice daily. 06/29/24: Patient has A-fib is rate controlled, repeat blood cultures have been negative at 48 hours. Continue A-fib regimen with metoprolol tartrate 50 twice daily along with Eliquis 5 mg twice daily. 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 Patient continues to have intermittent A-fib with rates mostly in the lower 100s. ID adjusted antibiotics as source of the blood cultures grew Streptococcus gordonii. As far as patient's A-fib we will not make any changes to the current medication regimen. 06/30/24: No significant overnight events. IV antibiotics switched to p.o. Keflex per ID recommendations. Patient has been A-fib rate controlled intermittently. No changes to current medical regimen per cardiology. Per primary team patient is to be discharged within 24 to 48 hours. Exam Vital Signs Temp Pulse Resp BP Pulse Ox O2 Del Method O2 Flow Rate 97.1 F 99 19 127/95 H 97 Room Air 1 07/01/24 12:00 07/01/24 16:00 07/01/24 12:00 07/01/24 12:00 07/01/24 12:00 07/01/24 12:06/30/24 09:48 Narrative Exam Constitutional: well-developed, well-nourished, in mild distress, lying in bed HEENT: NCAT, EOMI, reactive round pupils b/l, patent nares b/l, moist mucous membranes Lung: CTAB, no wheezing, no rhonchi Heart: Regular S1S2, no murmurs, gallops, or rubs Abdomen: Soft, non-distended, positive lower quadrant pain on palpation, positive left CVA tenderness, bowel sounds present throughout Extremities: No cyanosis, clubbing, or edema, LE pulses present b/l Neurologic: No focal sensory or motor deficits noted, AOx3, appropriate affect Skin: Warm, dry, no lesions or rashes noted Objective Labs 07/01/24 06:00 07/01/24 06:00 Labs: Laboratory Results - last 24 hr 06/30/24 07/01/24 21:17 06:00 WBC 9.1 D RBC 4.63 Hgb 12.7 L Hct 39.3 L MCV 85 MCH 27.4 MCHC 32.3 RDW Std Deviation 42.4 Plt Count 192 D Neut % (Auto) 64 Lymph % (Auto) 20 [place] % (Auto) 11 Eos % (Auto) 3 Baso % (Auto) 1 Neut # (Auto) 5.8 Lymph # (Auto) 1.9 [place] # (Auto) 1.0 H Eos # (Auto) 0.3 Baso # (Auto) 0.1 Immature Gran # (Auto) 0.06 H Absolute Nucleated RBC 0.00 Immature Gran % 1 H Nucleated RBC % 0 Sodium 136 Potassium 4.0 Chloride 101 Carbon Dioxide 29.2 Anion Gap 6 L BUN 21 Creatinine 1.0 Estim Creat Clear Calc 60.9 L eGFR > 60 BUN/Creatinine Ratio 21 H Glucose 105 Calculated Osmolality 274 L Calcium 9.2 Corrected Calcium 9.3 Phosphorus 3.2 Magnesium 2.0 Total Bilirubin 1.1 AST 58 H ALT 71 H Alkaline Phosphatase 124 H Total Protein 6.6 Albumin 3.9 Globulin 2.7 Albumin/Globulin Ratio 1.4 Vancomycin Trough 16.7 H Quality Measures Quality Measures VTE prophylaxis (Eliquis) Advance care planning discussed with:: other Assessment & Plan Assessment Current Active Medications: Generic Name Dose Route Start Last Admin Trade Name Freq PRN Reason Stop Dose Admin Acetaminophen 650 mg 06/25/24 16:29 06/25/24 18:39 Acetaminophen 325 Mg Tablet PO 07/25/24 16:28 650 mg Q6H PRN Administration Fever >100.5 Acetaminophen 650 mg 06/25/24 16:29 Acetaminophen 325 Mg Tablet PO 07/25/24 16:28 Q6H PRN PAIN SCALE 1-3 (mild Acetaminophen 325 mg 07/01/24 14:00 Acetaminophen 325 Mg Tablet PO 07/31/24 13:59 TID BUTCH Hydrocodone Bitart/Acetaminophen 1 tab 07/01/24 09:45 07/01/24 11:44 Hydrocodone/Apap 10/325 Tab PO 07/06/24 09:44 1 tab BID BUTCH Administration Amitriptyline HCl 25 mg 06/30/24 21:00 06/30/24 21:49 Amitriptyline Hcl 25 Mg Tablet PO 07/29/24 20:59 25 mg HS BUTCH Administration Apixaban 5 mg 06/27/24 09:00 07/01/24 09:16 Apixaban 2.5 Mg Tablet PO 07/27/24 08:59 5 mg BID BUTCH Administration Aspirin 81 mg 06/26/24 15:45 07/01/24 08:13 Aspirin Ec 81 Mg Tabec PO 07/26/24 15:44 81 mg QDAY BUTCH Administration Cephalexin HCl 500 mg 07/01/24 12:00 07/01/24 17:09 Cephalexin 250 Mg Capsule PO 07/08/24 11:59 500 mg QID BUTCH Administration Cyclobenzaprine HCl 15 mg 07/01/24 12:45 07/01/24 12:57 Cyclobenzaprine 5 Mg Tablet PO 07/31/24 12:44 15 mg QDAY BUTCH Administration Docusate Sodium 100 mg 06/25/24 16:30 07/01/24 08:12 Docusate Sod 100 Mg Capsule PO 07/25/24 16:29 100 mg QDAY BUTCH Administration Protocol Gabapentin 600 mg 06/29/24 22:00 07/01/24 15:14 Gabapentin 300 Mg Capsule PO 07/29/24 21:59 600 mg TID BUTCH Administration Levothyroxine Sodium 50 mcg 06/26/24 06:00 07/01/24 05:05 Levothyroxine Sodium 25 Mcg Tablet PO 07/26/24 05:59 50 mcg ACBR BUTCH Administration Lidocaine 1 patch 06/28/24 13:03 07/01/24 08:13 Lidocaine 5% 1 Patch TOP 07/28/24 13:02 1 patch UD PRN Administration PAIN Memantine 10 mg 06/26/24 21:00 07/01/24 08:12 Memantine Hcl 5 Mg Tablet PO 07/26/24 20:59 10 mg BID BUTCH Administration Metoprolol Tartrate 50 mg 06/26/24 09:00 07/01/24 08:12 Metoprolol Tartrate 25 Mg Tablet PO 07/26/24 08:59 50 mg BID BUTCH Administration Naloxegol 25 mg 06/29/24 09:15 07/01/24 09:16 Naloxegol Oxalate 25 Mg Tablet (Non-Formulary) PO 07/29/24 09:14 25 mg QDAY BUTCH Administration Ondansetron HCl 4 mg 06/25/24 16:29 06/29/24 09:55 Ondansetron Inj 2 Mg/Ml Inj 2 Ml IV 07/25/24 16:28 4 mg Q6H PRN Administration NAUSEA OR VOMITING Protocol Pantoprazole Sodium 40 mg 06/26/24 09:00 07/01/24 08:13 Pantoprazole 40 Mg Tablet PO 07/26/24 08:59 40 mg QDAY BUTCH Administration Tamsulosin HCl 0.4 mg 06/26/24 13:15 07/01/24 08:12 Tamsulosin Hcl 0.4 Mg Capsule PO 07/26/24 13:14 0.4 mg QDAY BUTCH Administration Plan 84 y/o male patient with significant medical history for BPH, prostate cancer s/p prostatectomy, HLD, HTN, gout, hypothyroidism and chronic pain abdominal/flank pain. Patient admitted for sepsis and found to have Afib with RVR. #Atrial fibrillation with RVR likely secondary to #Sepsis #Hypertension Plan: - Continue Metoprolol tartrate 50 mg BID - Continue Eliquis 5 mg BID - Echocardiogram showed 60-65% EF with trace AR and MR - Replete electrolytes as needed - Treat underlying GPC infection #Troponinemia type II, secondary to sepsis Trops peaked at 1.4 before downtrending Patient is not complaining of chest pain/pressure #GPC sepsis secondary to #Possible pyelonephritis #Pneumonia #GERD #BPH #ANTONINA #Chronic knee pain #Hypothyroidism -Management per primary team This patient care was discussed with my attending Dr. Beau De Anda MD PGY-2 Disclaimer: Minor errors in head girls golf coach may be present since this note was dictated by speech recognition software.
[2024-07-01] MEDS: AMITRIPTYLINE HCL 25 MG TABLET PO (20:37)
[2024-07-02] VITALS (8 sets, daily range): BP systolic 114–132; BP diastolic 78–93; PULSE 81–106; RESP 14–92; TEMP 36.1–36.2; O2SAT 93–97; BMI 32.7
[2024-07-02] MEDS: cephALEXin 250 MG CAPSULE 500 MG PO ×2 (05:04→11:16)
[2024-07-02] MEDS: GABAPENTIN 300 MG CAPSULE 600 MG PO ×2 (05:04→13:17)
[2024-07-02] MEDS: LEVOTHYROXINE SODIUM 25 MCG TABLET 50 MCG PO (05:04)
[2024-07-02 05:28] LABS: Basophils % (Auto) 1 % (0-2.5); Eosinophils # (Auto) 0.4 Thou/mm3 (0.0-0.5); Eosinophils % (Auto) 4 % (0-10); Hematocrit 36.9 % (41.0-53.0); Hemoglobin 12.1 g/dL (13.5-16.0); Immature Granulocytes % (Auto) 1 % (0-0); Immature Granulocytes Auto 0.09 Thou/mm3 (0.00-0.00); Lymphocytes # (Auto) 1.9 Thou/mm3 (1.0-4.8); Lymphocytes % (Auto) 23 % (10-50); Mean Corpuscular HGB Conc 32.8 g/dl (31.0-37.0); Mean Corpuscular Hemoglobin 27.6 pg (25.0-35.0); Mean Corpuscular Volume 84 fL (80-100); Monocytes # (Auto) 0.9 Thou/mm3 (0.0-0.8); Monocytes % (Auto) 10 % (0-12); Neutrophils # (Auto) 5.1 Thou/mm3 (1.8-7.7); Neutrophils % (Auto) 61 % (37-80); Nucleated Red Blood Cell % 0 /100 WBC (0); Platelet Count 213 Thou/mm3 (140-440); RDW Standard Deviation 42.1 fL (35.1-43.9); Red Blood Count 4.38 Miln/mm3 (4.50-5.90); White Blood Count 8.4 Thou/mm3 (3.8-10.6)
[2024-07-02 05:54] LABS: Alanine Aminotransferase 60 U/L (10-49); Albumin, Serum 3.9 gm/dL (3.4-4.8); Albumin/Globulin Ratio 1.4 (1.2-2.2); Alkaline Phosphatase 124 U/L (46-116); Anion Gap 7 (7-16); Aspartate Amino Transferase 22 U/L (0-34); BUN/Creatinine Ratio 27 Ratio (12-20); Bilirubin,Total 0.9 mg/dL (0.3-1.2); Blood Urea Nitrogen 30 mg/dL (9-23); Calcium 9.1 mg/dL (8.3-10.6); Calcium (Corrected) 9.2 mg/dL (8.5-10.1); Carbon Dioxide 28.1 mMol/L (20.0-31.0); Chloride 100 mMol/L (98-107); Creatinine (Component) 1.1 mg/dL (0.6-1.3); Estimated Creatinine Clearance 55.3 mL/min (>60); Globulin 2.7 gm/dL (2.3-3.5); Glucose 105 mg/dL (74-106); Magnesium 2.4 mg/dL (1.6-2.6); Osmolality,Calculated 276 (275-295); Potassium 4.6 mMol/L (3.4-5.1); Sodium 135 mMol/L (136-145); Total Protein 6.6 gm/dL (5.7-8.2); eGFR > 60 See Note
[2024-07-02] MEDS: PANTOPRAZOLE 40 MG TABLET PO (09:02)
[2024-07-02] MEDS: METOPROLOL TARTRATE 25 MG TABLET 50 MG PO (09:02)
[2024-07-02] MEDS: CYCLObenzaPRINE 5 MG TABLET 15 MG PO (09:02)
[2024-07-02] MEDS: HYDROcodone/APAP 10/325 TAB PO (09:02)
[2024-07-02] MEDS: TAMSULOSIN HCL 0.4 MG CAPSULE PO (09:03)
[2024-07-02] MEDS: MEMANTINE HCL 5 MG TABLET 10 MG PO (09:03)
[2024-07-02] MEDS: ASPIRIN EC 81 MG TABEC PO (09:03)
[2024-07-02] MEDS: APIXABAN 2.5 MG TABLET 5 MG PO (09:03)
[2024-07-02] MEDS: DOCUSATE SOD 100 MG CAPSULE PO (09:04)
[2024-07-02] MEDS: NALOXEGOL OXALATE 25 MG TABLET (NON-FORMULARY) PO (09:04)
--- NOTE | 2024-07-02 12:07 | PC.SS ---
Addendum entered by Olya Garcia 07/02/24 14:04: ETA set for 1530 Addendum entered by Olya Garcia 07/02/24 13:06: SS followed up with [facility], [facility] has not released reference # yet. SS will follow up in another 1hr. Original Note: Pt ready for DC, SS contacted Janee at [facility] who stated they have a private room for pt as agreed previously. SS contacted [facility] who is in agreement for pt being DC to [facility]. SS set up transport through [facility] pending ETA. Appropriate documentation sent via [facility] to [facility].
--- NOTE | 2024-07-02 15:34 | PD.RESDS ---
Planned Discharge Date 07/02/24 DS: Providers Provider Date of admission: 06/25/24 18:02 Primary care physician: Orville Banegas MD Admitting Provider: Lucio Mascorro MD Attending Provider on Admission: Lucio Mascorro MD Consults: 06/26/24 07:31 Consult to Cardiology Stat Comment: Consulting Provider: Lolis Yanez 06/27/24 07:03 Consult to Infectious Diseases Stat Comment: bacteremia GPCs Consulting Provider: Elias Krishna 06/27/24 11:34 Referral Physical Therapy Stat Comment: Physician Instructions: Attending Provider on DC: Patricio Fregoso MD Discharging Provider: Patricio Fregoso MD DS: Diagnosis Problem List Completed Was Problem List Reviewed/Reconciled?: Yes Hospital Course Hospital Course Hospital course: An 84-year-old male patient with past medical history of hypertension, hyperlipidemia, hypothyroidism, BPH, prostate cancer status post prostatectomy, gout, chronic knee pain, presented to the ED due to abdominal pain for 1 day. The pain was located in the flanks associated nausea. On presentation patient was found to have mild ANTONINA, and CT scan showed left perinephric stranding. Family reported that few weeks before presentation he had a dental procedure in [place]. Patient was admitted for sepsis secondary to pyelonephritis. Patient was started on Zosyn. Blood culture showed Streptococcus gordonii. Patient was switched to ceftriaxone and vancomycin. Consultation to the infectious disease specialist Dr Krishna recommended to continue the patient only on vancomycin and switching to p.o. blood pressure was almost sensitive to most antibiotics. Podiatry send patient was switched to Keflex. During his stay patient developed A-fib with RVR which was paroxysmal in which cardiology was consulted recommended to perform an echo which came back normal with ejection fraction of 60 to 65% with mild ascending aorta dilatation. He also recommended to start the patient on Eliquis and metoprolol 50 mg. During his stay patient developed back pain he reported that it has been going on for a while however he got an injection in outpatient for his back pain which resulted in significant improvement of his symptoms. He denied any bladder or rectal retention or loss of control. Denied any saddle anesthesia denied any weakness. Because of the intractable pain and because the patient has positive blood culture and the tenderness we ordered for the patient MRI which came back positive for disc bulge between L5 and S1, and spinal stenosis at the lumbar region. Physical therapy was done recommended that the patient need to be placed in SNF. Patient was given 1 dose of Toradol, muscle relaxant Flexeril in addition to [place] as needed and Tylenol scheduled. Patient deemed to be clinically stable for discharge to a correction facility. Discharging diagnosis #Sepsis secondary to pyelonephritis #GPC bacteremia #Right-sided pneumonia #Lumbar spine stenosis #L5-S1 disc herniation with no complications #Paroxysmal atrial fibrillation #Non-STEMI type II #ANTONINA resolved #Hypertension urgency #Constipation #Elevated liver enzymes #History of BPH #History of hypothyroidism #History of GERD - Patient's plan and care discussed with my attending, Dr. Subha Fregoso MD Internal Medicine PGY-2 Status at Discharge Functional status at discharge: uses cane/walker Overall status at discharge: patient is progressing back to baseline Time Spent with Patient Time attestation: Total time spent providing and/or coordinating discharge services: Time spent: Greater than 30 minutes Exam Vital Signs Temp Pulse Resp BP Pulse Ox O2 Del Method O2 Flow Rate 97.0 F 105 H 21 H 119/84 94 L Room Air 1 07/02/24 12:00 07/02/24 12:07/02/24 12:07/02/24 12:07/02/24 12:07/02/24 12:07/02/24 00:00 Narrative Exam GEN: AOx3, Irish speaker, able to speak full sentences HEENT: NC/AC, oral mucosa moist, neck supple CVS: RRR, S1-S2 present, no murmurs appreciated RESP: CTAB GI: soft,non distended, non tender, NBS MSK: Bilateral back pain, no spinal tenderness, no erythema or swelling or deformity. Able to move all 4 limbs, no lower extremity edema SKIN: warm and dry DIRECTOR OF REVENUE CYCLE MANAGEMENT: CN II-XII and Sensation grossly intact. Discharge Plan Plan Patient Disposition: Xfer Skilled Nsg Fac (SNF) Disposition Comment: Stable for DC Patient condition on transfer: Stable and Benefits outweigh risks Care Plan Goals: Follow-up with your primary care physician within 1 week from discharge Follow-up on your liver panel and liver enzymes Use medications as prescribed Follow-up with your mammographer within 1 week from discharge Follow-up with your physical therapist recommendations Follow-up with orthopedic surgeon for your back pain within 2 weeks from discharge. In case of worsening of her symptoms please return to the ED as soon as possible Avoid ibuprofen or any other nonsteroidal medication as it may increase your risk of bleeding as you are on apixaban which is blood thinner in addition to the aspirin. Prescriptions/Referrals Prescriptions/Med Rec: New aspirin 81 mg Tablet,Delayed Release (Dr/Ec) 81 mg PO QDAY 30 Days Qty: 30 0RF apixaban 5 mg tablet 5 mg PO BID Qty: 14 0RF hydrocodone-acetaminophen 10-325 mg Tablet 1 tab PO TID MDD 30mg 5 Days Qty: 15 0RF cyclobenzaprine 10 mg tablet 10 mg PO TID 10 Days Qty: 30 0RF metoprolol succinate 50 mg tablet extended release 24 hr 50 mg PO QDAY 15 Days Qty: 15 0RF acetaminophen [Tylenol Arthritis Pain] 650 mg tablet extended release 650 mg PO Q12H Qty: 14 0RF cephalexin 500 mg capsule 500 mg PO Q8H 6 Days Qty: 18 0RF Continued hydrocodone-acetaminophen 7.5-325 mg Tablet 1 tab PO BID PRN (Reason: Pain) Hold Instructions: Resume on 11/15/21. propranolol 10 mg tablet 10 tab PO DAILY gabapentin 300 mg capsule 300 cap PO TID losartan 100 mg tablet 100 tab PO DAILY levothyroxine 50 mcg tablet 50 mcg PO DAILY Patient Comments: take 1 tablet by mouth once daily pantoprazole 40 mg tablet,delayed release (DR/EC) 40 mg PO DAILY memantine 10 mg tablet 10 mg PO BID amitriptyline 25 mg tablet 25 mg PO HS tamsulosin 0.4 mg Capsule 0.4 mg PO QDAY Discontinued ibuprofen 600 mg Tablet 600 mg PO TID PRN (Reason: Pain) Rx Instructions: prn legs pain(Hx gout arthritis, internal fixation left leg, right knee skin graft) Referrals: Orville Banegas MD [Primary Care Provider] - Patient/Caregiver Discharge Instructions Discharge Activity: as per physical therapy Education Materials: Sepsis Print Language: Turkish Stand Alone Forms: Roberta Award Info., Patient Portal Info Letter Discharge Order Discharge Orders: Discharge (Routine); Ordered 07/02/24 Ordered By: Patricio Fregoso Quality Discharge Quality Measures VTE prophylaxis Attestestation MD Attestation I have examined the patient, reviewed labs and imaging findings, discussed the case with the resident(s), and reviewed entered orders. I agree with the plan of care as outlined in this note. Dr. Mascorro
--- NOTE | 2024-07-02 17:11 | ESPR_ITS ---
RE: BARB FORREST : 1940 DATE OF SERVICE: 07/02/2024 SUBJECTIVE: The patient is an 84-year-old male with past medical history of multiple medical problems admitted to the hospital with urinary tract infection _, continues to have atrial fibrillation episode, but rate controlled well, not having any chest pain or shortness of breath. PHYSICAL EXAMINATION: Vital Signs: His blood pressure 119/84, pulse rate 100, respirations 21, and temperature normal. HEENT: Head is atraumatic and normocephalic. Eyes normal. ENT normal. Neck: Supple. No JVD. Lungs: Decreased breath sounds. No rales. Heart: S1 and S2, regular. Abdomen: Thin and soft. Extremities: No edema. IMPRESSION: 1. Paroxysmal atrial fibrillation and flutter, rate controlled well. 2. Hypertension. 3. back pain RECOMMENDATIONS: Continue low dose aspirin and Eliquis 5 mg twice daily. Also on metoprolol 50 mg twice daily for atrial fibrillation. DT: 15:03:34 TT: 15:37:00 Ref: [id number] - TID: [id number] MTDD
[2024-07-03 01:26] LABS: Hepatitis C Antibody Non Reactive (Non React)
== END 2024-07-02 15:30 | disposition skilled nursing facility (03) | DRG 871 ==
LOC: SERX 15:31 → SERHOLD 18:04 → S3SX 18:14 → S2NX 20:22
PROVIDERS: Internal Medicine Infectious Disease; Nurse Practitioner Family; Student in an Organized Health Care Education/Training Program; Admitting Provider Student in an Organized Health Care Education/Training Program; Emergency Provider Emergency Medicine; PCP Family Medicine; Visit Provider Student in an Organized Health Care Education/Training Program
DX: A41.89 Other specified sepsis (principal); I21.A1 Myocardial infarction type 2; J18.9 Pneumonia, unspecified organism; N17.9 Acute kidney failure, unspecified; N12 Tubulo-interstitial nephritis, not specified as acute or chronic; I10 Essential (primary) hypertension; Z85.46 Personal history of malignant neoplasm of prostate; E78.5 Hyperlipidemia, unspecified; M10.9 Gout, unspecified; N40.0 Benign prostatic hyperplasia without lower urinary tract symptoms; E03.9 Hypothyroidism, unspecified; G89.29 Other chronic pain; I48.0 Paroxysmal atrial fibrillation; K59.00 Constipation, unspecified; F32.A Depression, unspecified; I16.0 Hypertensive urgency; K21.9 Gastro-esophageal reflux disease without esophagitis; N26.1 Atrophy of kidney (terminal); I77.810 Thoracic aortic ectasia; M48.061 Spinal stenosis, lumbar region without neurogenic claudication; M51.27 Other intervertebral disc displacement, lumbosacral region
CPT/HCPCS: 36415; 71046; 72148; 74177; 80053; 80061; 80202; 81001; 83605; 83690; 83735; 84100; 84145; 84439; 84443; 84484; 85025; 85610; 85730; 86803; 87040; 87081; 87086; 87186; 87502; 87811; 93005; 93306; 96361; 96365; 96367; 96372; 96374; 96375; 97161; 99291; A4649; J0131; J0360; J0696; J1643; J1644; J1885; J2270; J2405; J2543; J3370; J3475; J7030; J7040; J7050; Q9967; A9270

== ENCOUNTER 2024-08-11 17:57 | Emergency (ER) | payer OTHER, SELFPAY ==
[2024-08-11 18:01] VITALS: BP 114/74; PULSE 99; RESP 17; TEMP 36.7; O2SAT 97; BMI 34.4
[2024-08-11 18:05] VITALS: PULSE 100; RESP 18; O2SAT 96; BMI 34.4
[2024-08-11 20:03] VITALS: BP 90/59; PULSE 77; RESP 21; TEMP 36.9; O2SAT 94
--- NOTE | 2024-08-11 20:23 | XR_ITS ---
Examination: CT brain head without contrast. 2-D sagittal coronal reconstructions Date and time of exam:August 11, 2024 2130 hrs. Indications: Onset altered mental status today CTDI: vol (mGy):52.3 DLP: (mGycm):1043 Technique: Multiple CT axial sections of the brain have been obtained, 5 mm slice thickness. Contrast has not been administered. 2-D sagittal, coronal reconstructions have been obtained Low dose protocols were performed. One or more of the following dose reduction techniques were used; automated exposure control, adjustment of the mA and/or KV according to patient size, use of iterative reconstruction technique. Findings: No significant ventricular enlargement. Intra-axial or extra-axial hemorrhage density is not seen. No mass effect or midline shift Basal cisterns are not remarkable. Fourth ventricle is midline. Cranial vault intact. Impression: Negative for acute hemorrhage, mass effect or midline shift Advise clinical correlation follow-up accordingly
--- NOTE | 2024-08-11 20:23 | XR_ITS ---
Examination: AP chest single view Technique: AP portable semiupright chest single view Exam date and time: August 11, 2024 2030 hrs. Indications: Altered mental status today Findings: Mild prominence of ventricle No aspiration pneumonia Prominent osteopenia No pulmonary edema Impression: Negative for aspiration pneumonia
--- NOTE | 2024-08-11 20:25 | EDNOTE_ITS ---
Altered Mental Status RME/HPI General Chief Complaint: Altered Mental Status Stated Complaint: BACK PAIN Time Seen by Provider: 08/11/24 20:27 Arrival date/time: 08/11/24 17:57 RME / HPI RME / HPI narrative: 84-year-old male patient with significant history of hypertension, dementia, chronic back pain, was [facility] in from jail for evaluation regarding altered mental status. Patient was noted by his doctor as patient is talking nonsense. And was also noted to be more sleepy than usual. According to her daughter, since Wednesday night, patient will gabapentin was increased, Royal was increased, and started on baclofen. Patient was seen by her doctor yesterday and was conversant and talking normal. At around 4 PM when daughter visited him patient was noted to be talking nonsense. Denies any other complaints. Related Data Home Medications ?Medication ?Instructions ?Recorded ?Confirmed hydrocodone 7.5 mg-acetaminophen 1 tab PO BID PRN Pain 05/03/18 06/25/24 325 mg tablet gabapentin 300 mg capsule 300 cap PO TID 11/14/2106/05 losartan 100 mg tablet 100 tab PO DAILY 11/14/21 propranolol 10 mg tablet 10 tab PO DAILY 11/14/21 amitriptyline 25 mg tablet 25 mg PO HS 04/17/24 levothyroxine 50 mcg tablet 50 mcg PO DAILY 04/17/24 1 08/26/23 memantine 10 mg tablet 10 mg PO BID 04/17/24 pantoprazole 40 mg tablet,delayed 40 mg PO DAILY 04/1706/25/24 release tamsulosin 0.4 mg capsule 0.4 mg PO QDAY 06/25/2406/05 Previous Rx's ?Medication ?Instructions ?Recorded acetaminophen 650 mg 650 mg PO Q12H #14 tabs 06/05 03/28 tablet,extended release (Tylenol Arthritis Pain) apixaban 5 mg tablet 5 mg PO BID #14 tabs 4 Allergies Allergy/AdvReac Type Severity Reaction Status Date / Time No Known Allergies Allergy Verified 06/25/24 19:53 Review of Systems Review of Systems Narrative Review of Systems: Review of system reviewed and within normal limits except mentioned in HPI ED Exam Narrative Physical exam: VITAL SIGNS: Reviewed. GENERAL APPEARANCE: Alert and interactive, follows simple commands, no acute distress, HEAD AND FACE: Non-traumatic. ENT: PERRL, pink conjunctivitis, eyelid no trauma, Mucous membrane moist. NECK: Supple, nontender, no nuchal rigidity. CHEST: No tenderness, no crepitus, no paradoxical movement, no retractions. LUNGS: Clear, well ventilated, symmetric, no rales, no wheezing, no ronchi, no stridor, good breath sounds bilaterally. HEART: Regular rate, regular rhythm, no murmur, no gallops. ABDOMEN: Soft, positive bowel sounds, nondistended, no guarding, nontender, no rebound, no masses, RECTAL: Deferred. GENITAL: Deferred. NEUROLOGICAL: Gross motor function intact sensory function intact, Appropriate for age. MUSCULOSKELETAL: low back nontender, full range of motion. EXTREMITIES: Nontender, full range of motion. SKIN: Color pink, dry, no rash, no lacerations, no abrasions, no contusions. LYMPHATICS: Deferred. Course Quality Measures none Orders Category Date Time Status EKG (ED ONLY) *Do not use* NOW Care 08/11/24 20:[address] head/brain wo con Stat Exams 08/11/24 20:23 Completed EKG (ED Only) Stat Exams 08/11/24 20:23 Ordered XR chest 1V Stat Exams 08/11/24 20:23 Completed B-Type Natriuretic Peptide Stat Lab 08/11/24 20:43 Completed CBC Stat Lab 08/11/24 20:43 Completed Comprehensive Metabolic Panel Stat Lab 08/11/24 20:43 Completed Partial Thromboplastin Time Stat Lab 08/11/24 20:43 Completed Troponin I Stat Lab 08/11/24 20:43 Completed Urinalysis, C/S if Indicated Stat Lab 08/11/24 22:24 Completed Sodium Chloride 0.9% 1000 ml [Ns] 1,000 ml Med 08/11/24 20:24 Discontinued IV 999 mls/hr Sodium Chloride 0.9% 1000 ml [Ns] 1,000 ml Med 08/11/24 22:49 Active IV 999 mls/hr Vital Signs Vital signs: Vital Signs Temperature 98.1 F 08/11/24 18:01 Pulse Rate 99 08/11/24 18:01 Respiratory Rate 17 08/11/24 18:01 Blood Pressure 114/74 08/11/24 18:01 Pulse Oximetry (%) 97 08/11/24 18:01 Oxygen Delivery Method Room Air 08/11/24 18:01 Altered Mental Status MDM Narrative [facility] Narrative:: 84-year-old male patient with significant history of hypertension, dementia, chronic back pain, was brought in from jail for evaluation regarding altered mental status. Patient was noted by his doctor as patient is talking nonsense. And was also noted to be more sleepy than usual. According to her daughter, since Wednesday night, patient will gabapentin was increased, Royal was increased, and started on baclofen. Patient was seen by her doctor yesterday and was conversant and talking normal. At around 4 PM when daughter visited him patient was noted to be talking nonsense. Denies any other complaints. Patient's workup today including CT scan of the head came back unremarkable. Chest x-ray also came back normal urinalysis came back unremarkable. CMP is significant for slightly elevated creatinine of 2.0 patient was advised to drink a lot of fluids. Patient was given 2 L of IV fluids in the emergency room. Patient is making good amount of urine. Results discussed with the patient and family. Patient appears nontoxic and hemodynamically stable. Patient discharged home and instructed to follow-up with primary care provider in 24 to 48 hours. Instructed to return to the emergency department immediately if worsening of symptoms Patient data External records reviewed:: None Clinical information provided by:: none Social determinants that could affect healthcare access:: none Patient has the following chronic illnesses:: Hypertension BPH dementia, chronic pain syndrome How is presenting disease/condition affected by chronic disease/condition?: exacerbated by Evaluation data The following diagnostics were reviewed and interpreted by me:: lab results, radiology exam(s) and EKG tracing(s) Lab and/or radiology exams considered but not ordered:: None Interpretation Summary: EKG as interpreted by me showed normal sinus rhythm ventricular rate of 69 bpm, no ST segment or elevation noted. The rest of the results see MDM Medications / Prescriptions Medications or Prescriptions considered but not ordered:: None Medication administrations:: Medication Administration History Sodium Chloride (Ns) 1,000 mls @ 999 mls/hr IV .Q1H1M ONE Stop: 08/11/24 23:49 Last Admin: 08/11/24 22:59 Dose: 999 mls/hr Documented By: MP Discontinued Medications Sodium Chloride (Ns) 1,000 mls @ 999 mls/hr IV .Q1H1M ONE Stop: 08/11/24 21:24 Last Infusion: 08/11/24 22:14 Dose: Infused Documented By: Infusion: 08/11/24 21:30 Dose: 999 mls/hr Documented By: Admin: 08/11/24 20:33 Dose: 999 mls/hr Documented By: [email or web address] IV fluids for hydration, 2 L Consultations Consultation(s) initiated? (list below): No Diagnosis Differential diagnosis altered mental status: altered mental status, dementia and other (Adverse effect of pain medication and muscle relaxant,) Most likely diagnosis given after review of the tests above:: Confusion Admission Indicated Admission indicated?: not indicated Explain why admission is indicated or not indicated:: None Admission Request Was there a request for admission?: No Disposition Plan Disposition Plan: Discharge Discharge Attestation Discharge Attestation: Patient condition: Stable Discharge Plan Plan Patient Disposition: HOME (Self Care) Disposition Comment: Stable Prescriptions/Referrals Prescriptions/Med Rec: No Action hydrocodone-acetaminophen 7.5-325 mg Tablet 1 tab PO BID PRN (Reason: Pain) propranolol 10 mg tablet 10 tab PO DAILY gabapentin 300 mg capsule 300 cap PO TID losartan 100 mg tablet 100 tab PO DAILY levothyroxine 50 mcg tablet 50 mcg PO DAILY Patient Comments: take 1 tablet by mouth once daily pantoprazole 40 mg tablet,delayed release (DR/EC) 40 mg PO DAILY memantine 10 mg tablet 10 mg PO BID amitriptyline 25 mg tablet 25 mg PO HS tamsulosin 0.4 mg Capsule 0.4 mg PO QDAY apixaban 5 mg tablet 5 mg PO BID Qty: 14 0RF acetaminophen [Tylenol Arthritis Pain] 650 mg tablet extended release 650 mg PO Q12H Qty: 14 0RF Referrals: Orville Banegas MD [Primary Care Provider] - In 1 week Problem List Clinical Impression: Dehydration, Acute confusion Patient/Caregiver Discharge Instructions Discharge Activity: activity as tolerated Education Materials: ED Confusion, ED Dehydration (Adult) Additional Instructions: Thank you for the opportunity for serving you today. You are stable for discharged . You are advised to: Follow-up with your PCP in 1 to 2 days Return to ED for worsening of symptoms Increase oral fluids Talk to your pain management doctor regarding pain management which could be the reason for confusion Print Language: Portuguese Stand Alone Forms: Jott Info., Patient Portal Info Letter PA/MANAGER COMMUNITY OUTREACH Supervising Physician PA/MANAGER COMMUNITY OUTREACH Supervising Physician: MD Stephon
[2024-08-11] MEDS: SODIUM CHLORIDE 0.9% 1000 ML 1,000 ML 999 ML IV ×2 (20:33→22:59)
[2024-08-11 21:22] LABS: Basophils # (Auto) 0.1 Thou/mm3 (0.0-0.2); Basophils % (Auto) 1 % (0-2.5); Eosinophils # (Auto) 0.2 Thou/mm3 (0.0-0.5); Eosinophils % (Auto) 3 % (0-10); Hematocrit 30.8 % (41.0-53.0); Hemoglobin 10.1 g/dL (13.5-16.0); Immature Granulocytes % (Auto) 0 % (0-0); Immature Granulocytes Auto 0.02 Thou/mm3 (0.00-0.00); Lymphocytes # (Auto) 1.7 Thou/mm3 (1.0-4.8); Lymphocytes % (Auto) 22 % (10-50); Mean Corpuscular HGB Conc 32.8 g/dl (31.0-37.0); Mean Corpuscular Hemoglobin 28.1 pg (25.0-35.0); Mean Corpuscular Volume 86 fL (80-100); Monocytes # (Auto) 0.7 Thou/mm3 (0.0-0.8); Monocytes % (Auto) 9 % (0-12); Neutrophils # (Auto) 5.2 Thou/mm3 (1.8-7.7); Neutrophils % (Auto) 66 % (37-80); Nucleated Red Blood Cell % 0 /100 WBC (0); Platelet Count 189 Thou/mm3 (140-440); RDW Standard Deviation 44.4 fL (35.1-43.9); White Blood Count 7.9 Thou/mm3 (3.8-10.6)
[2024-08-11 21:42] LABS: B-Type Natriuretic Peptide 31 pg/mL (0-100)
[2024-08-11 21:56] LABS: Alanine Aminotransferase 8 U/L (10-49); Albumin, Serum 3.7 gm/dL (3.4-4.8); Albumin/Globulin Ratio 1.4 (1.2-2.2); Alkaline Phosphatase 119 U/L (46-116); Anion Gap 8 (7-16); Aspartate Amino Transferase 10 U/L (0-34); BUN/Creatinine Ratio 21 Ratio (12-20); Bilirubin,Total 0.6 mg/dL (0.3-1.2); Blood Urea Nitrogen 41 mg/dL (9-23); Calcium 8.5 mg/dL (8.3-10.6); Calcium (Corrected) 8.7 mg/dL (8.5-10.1); Carbon Dioxide 24.9 mMol/L (20.0-31.0); Chloride 107 mMol/L (98-107); Estimated Creatinine Clearance 29.8 mL/min (>60); Globulin 2.6 gm/dL (2.3-3.5); Glucose 106 mg/dL (74-106); Osmolality,Calculated 289 (275-295); Potassium 4.5 mMol/L (3.4-5.1); Sodium 140 mMol/L (136-145); Total Protein 6.3 gm/dL (5.7-8.2); Troponin I < 0.020 ng/mL (0.0-0.045); eGFR 32 See Note
[2024-08-11 22:09] LABS: Partial Thromboplastin Time 30.6 Seconds (22.0-36.0)
[2024-08-11 23:05] LABS: Collection Type, Urine Clean Catch; Squamous Epithelial Cell,Urine 0 /hpf (0-5)
[2024-08-11 23:10] LABS: Bilirubin,Urine Negative (Negative); Blood,Urine Negative (Negative); Clarity,Urine Clear (Clear/Hazy); Color,Urine Yellow (Lt Yel-Yel); Culture Indicated,Urine Not Indicated; Glucose, Urine Negative (Negative); Hyaline Casts,Urine < 1 /hpf (0-1); Ketones,Urine Negative (Negative); Leukocyte Esterase,Urine Negative (Negative); Nitrite,Urine Negative (Negative); Protein,Urine 1+ (Neg - Trace); RBC,Urine 3 /hpf (0-3); Specific Gravity,Urine 1.028 (1.001-1.035); WBC,Urine < 1 /hpf (0-5)
== END 2024-08-12 02:43 | disposition home or self-care (01) ==
PROVIDERS: Nurse Practitioner Family; Emergency Provider Emergency Medicine; PCP Family Medicine
DX: E86.0 Dehydration (principal); R41.0 Disorientation, unspecified; I10 Essential (primary) hypertension; F03.90 Unspecified dementia, unspecified severity, without behavioral disturbance, psychotic disturbance, mood disturbance, and anxiety; G89.4 Chronic pain syndrome; N40.0 Benign prostatic hyperplasia without lower urinary tract symptoms
CPT/HCPCS: 36415; 70450; 71045; 80053; 81001; 83880; 84484; 85025; 85730; 93005; 96360; 96361; 99284; J7030

== ENCOUNTER → 2024-09-13 | Outpatient (CLI) | payer OTHER, MEDICAID, SELFPAY ==
--- NOTE | 2024-09-13 | XR_ITS ---
Examination: Cervical spine 7 mm Technique: AP, lateral, standing lateral flexion, standing lateral extension, FOX, [place], coned AP odontoid 7 views Exam date and time: 2024 11:10 AM Indications: Neck stiffness beginning one month ago. Findings: Advanced degenerative disc disease C3-C4, C4-C5, C5-C6 and C6-C7 Decreased range of motion between flexion and extension Diffuse moderate bilateral neural foraminal stenosis. Cervical levoscoliosis 12 degrees Impression: Diffuse advanced cervical degenerative disc disease
== END | disposition home or self-care (01) ==
PROVIDERS: PCP Family Medicine; Referring Provider Family Medicine; Visit Provider Family Medicine
DX: M50.31 Other cervical disc degeneration, high cervical region (principal)
CPT/HCPCS: 72052

== ENCOUNTER → 2025-02-23 | Outpatient (CLI) | payer OTHER, MEDICAID, SELFPAY ==
--- NOTE | 2025-02-23 10:30 | XR_ITS ---
Examination: Shoulder,right, 3 views Technique: Shoulder AP internal rotation, AP external rotation, Y view shoulder, 3 views Exam date and time :February 23, 2025 1051 hours INDICATIONS: Patient fell 3 days ago with injury to the shoulder, shoulder pain. FINDINGS: Severe osteopenia. No shoulder fracture or dislocation. No foreign body IMPRESSION: No shoulder fracture or dislocation
== END | disposition home or self-care (01) ==
PROVIDERS: PCP Family Medicine; Referring Provider Family Medicine; Visit Provider Family Medicine
DX: S49.92XA Unspecified injury of left shoulder and upper arm, initial encounter (principal); W19.XXXA Unspecified fall, initial encounter
CPT/HCPCS: 73030

== ENCOUNTER → 2025-06-12 | Outpatient (CLI) | payer OTHER, MEDICAID, SELFPAY ==
--- NOTE | 2025-06-12 14:33 | XR_ITS ---
EXAMINATION: Bilateral AP knees standing single view Standing right lateral knee left lateral knee 2 views TECHNIQUE: Bilateral AP knees standing single view Standing right lateral knee left lateral knee 2 views Date and time: May 13, 2025, 1500 hours INDICATIONS: Right knee pain beginning 3 years ago FINDINGS: Severe osteopenia Advanced narrowing [id number] medial joint space right knee Advanced osteoarthritis right patellofemoral joint No acute fracture Healed fracture proximal left tibia, healed fracture lateral tibial plateau on the left, depression of the tibial plateau at least 9 mm Advanced narrowing medial joint space left knee Advanced osteoarthritis left patellofemoral joint No acute fracture IMPRESSION: Significant osteoarthritis as above
== END | disposition home or self-care (01) ==
PROVIDERS: PCP Family Medicine; Referring Provider Orthopaedic Surgery; Visit Provider Orthopaedic Surgery
DX: M17.0 Bilateral primary osteoarthritis of knee (principal)
CPT/HCPCS: 73560